=== PATIENT | male | born 1960 | race Caucasian/White ===

== ENCOUNTER 2022-09-15 06:01 | Day surgery (SDC) | payer OTHER, SELFPAY ==
[2022-09-07 14:43] VITALS: BMI 26.6
--- NOTE | 2022-09-14 15:16 | P.PNAN_ITS ---
Anes - Initial Pre Proc Eval Procedure: Operation Date: 09/15/22 07:30 Proposed Procedures p Blepharoplasty-Bilateral Lower Eyelid - Fabian Santacruz MD Date/Time: 09/14/22 15:16 Surgeon: Fabian Santacruz MD Pre Op Diagnosis: Dermatochalasis Patient Data Age: 62 Gender: M Height: 1.75 m Weight: 81.65 kg Allergies Allergy/AdvReac Type Severity Reaction Status Date / Time No Known Allergies Allergy Verified 09/07/22 14:39 Home Medications Medication Instructions Recorded Confirmed Type losartan 25 mg PO DAILY 03/28/22 09/15/22 History Patient hx anesthesia problems: none Family hx anesthesia problems: none Results Review: All pre-operative results and documents have been reviewed as part of the pre- operative evaluation. [facility] Past Medical History Medical History (Updated 09/14/22 @ 15:17 by Bayron Mcdonald DO) Hypertension Social History Social History (Updated 03/28/22 @ 10:48 by Lashay Starks) Smoking status: Never smoker Second hand tobacco smoke exposure: No Alcohol intake: current Substance use: never Substance use type: does not use Living arrangements: with family Spiritual care concerns: No Anes - Eval Final PreProcedure Day of Procedure 09/14/22 15:16 Patient weight: overweight Heart: regular rate and rhythm Lungs: clear to auscultation Airway: Mallampati scale class II Neurological: alert and oriented Last oral intake: >/= 8 hours ASA classification: II Emergent: no Anesthetic plan: proceed Anesthesia type and monitoring: general ETT and standard monitoring Results Review: All pre-operative results and documents have been reviewed as part of the pre-o perative evaluation. Informed Consent: The patient's anesthetic plan and its attendant risks and benefits were discussed with the patient/family/POA. Questions were solicited and answers provided to the satisfaction of the patient/family/POA.
[2022-09-15] VITALS (9 sets, daily range): BP systolic 123–143; BP diastolic 84–93; PULSE 63–80; RESP 12–20; TEMP 36.3–36.4; O2SAT 93–100
[2022-09-15] MEDS: LACTATED RINGERS 1,000 ML 30 ML IV CONT (06:33)
--- NOTE | 2022-09-15 07:11 | WPDHPUPDATE1 ---
History and Physical Update Update Date/Time: 09/15/22 07:11 History and Physical has been reviewed, including an updated exam of the patient. There are NO changes in the patient's condition. Risks, benefits, and alternatives have been discussed and questions answered. Patient agrees to proceed with procedure.
--- NOTE | 2022-09-15 07:16 | W.PM.PROC2 ---
Procedure Note - Detailed Date of Procedure 09/15/22 Pre-op Diagnosis Dermatochalasis Post-op Diagnosis Same Procedure Performed Bilateral transconjunctival lower lid blepharoplasty Surgeon Fabian Santacruz MD Anesthesia General Description of Procedure Preoperatively risks, benefits, alternatives were discussed in extensive detail. I want them to be very realistic about the risks involved as well as expectations. Discussed what we can and cannot improved. Limitations of this procedure. Alternative procedure as well as adjuvant procedures. This was a lengthy open-ended conversation discussing realistic expectations of outcome. Answered all of their questions to their satisfaction. Consent obtained. Taken to the operating room placed supine on the operating room table. Anesthesia provided by anesthesiology. Prepped and draped in a standard sterile fashion. 1% lidocaine and 0.25% Marcaine with epinephrine was used anesthetize locally with low volume of local to protect from distortion of structures. Eyes were irrigated with BSS. Tetracaine eyedrops placed. Corneal protectors also placed. Needle-tip cautery was used to incise just inferior to the tarsus and a transconjunctival lower lid blepharoplasty technique. The conjunctiva was retracted with a 5-0 nylon. I elevated in a preseptal fashion down to the level of the rim. At this point I entered the nasal, middle, and lateral compartments and removed only what was clearly excess adiposity. I verified strict hemostasis throughout. I verified that the inferior oblique was protected during this procedure. With gentle pressure on the globe I verified the contour the lower lids. Both lids proceeded in the same manner. Retraction suture and corneal protectors were removed. Copious irrigated again with BSS solution. Patient was woken taken the PACU without difficulty. All instrument sponge counts were correct at the end the case. Estimated Blood Loss 5 Drains No Packing No Pathology None sent Complications No immediate complications Condition Stable Disposition PACU
[2022-09-15] MEDS: ceFAZolin SODIUM 2 GM/20 ML SW SYRINGE IV PUSH (07:26)
[2022-09-15] MEDS: LIDO 1%/EPINEPHRINE 1:100,000 20 ML VIAL INFILTRATE (07:59)
[2022-09-15] MEDS: BUPIVACAINE HCL 0.25% 50 ML VIAL 20 ML INFILTRATE (08:00)
[2022-09-15] MEDS: NEOMYCIN/POLYMYXIN/DEXAMETH OP OINT 3.5 GM TUBE 1 APPLIC AFFCTD EYE (08:31)
[2022-09-15] MEDS: fentaNYL CITRATE INJ (*CRX) 100 MCG/2 ML VIAL 25 MCG IV PUSH ×2 (08:59→09:06)
[2022-09-15] MEDS: oxyCODONE HCL (*CRX) 2.5 MG TAB IR PO (09:45)
--- NOTE | 2022-09-15 10:37 | WPDANESPN ---
Anes - Prog Note Post-Op Date/Time: 09/15/22 10:37 Cardiovascular status: normal Respiratory status: normal Airway patency: baseline Mental status: baseline Post-Op hydration status: normal Vital Signs: Last Vital Signs Temp 36.3 C L 09/15/22 08:43 Pulse 63 09/15/22 10:20 Resp 14 09/15/22 10:20 BP 126/86 09/15/22 10:20 Pulse Ox 94 09/15/22 10:20 O2 Del Method Room Air 09/15/22 10:20 O2 Flow Rate 5 09/15/22 08:58 Pain Score (VAS): 1 I/O: Intake & Output 09/14/22 09/15/22 09/15/22 23:59 07:59 15:59 Intake Total 100 Balance 100 Post-procedural complaints: none Patient Feedback: Patient satisfied with anesthetic care. Other Findings: Patient vital signs back to baseline. Patient denies nausea and vomiting. Patient's pain under control. Patient OK for discharge.
== END 2022-09-15 10:23 | disposition home or self-care (01) ==
PROVIDERS: PCP Internal Medicine; Visit Provider Surgery Plastic and Reconstructive Surgery
PROC: (CPT 15821; principal; 2022-09-15 07:30)
DX: Z41.1 Encounter for cosmetic surgery (principal)
CPT/HCPCS: 15821

== ENCOUNTER 2024-01-29 12:53 | Outpatient (CLI) | payer OTHER, SELFPAY ==
--- NOTE | 2024-01-29 13:09 | ECG_ITS ---
SEE SCANNED COPY FOR CONFIRMED REPORT MTDD
[2024-01-29 13:52] LABS: Anion Gap 4 mmol/L (4-12); Blood Urea Nitrogen 15 mg/dL (9-20); Calcium 9.4 mg/dL (8.4-10.2); Carbon Dioxide 30 mmol/L (22-30); Chloride 103 mmol/L (98-107); Estimated Glomerular Filt Rate > 60; Glucose 105 mg/dL (65-110); Potassium 3.3 mmol/L (3.4-5.0); Sodium 137 mmol/L (137-145)
== END 2024-01-29 12:54 | disposition home or self-care (01) ==
LOC: ANHSURGERY 13:03
PROVIDERS: Anesthesiology; PCP Internal Medicine; Visit Provider Surgery
DX: Z01.818 Encounter for other preprocedural examination (principal); K42.9 Umbilical hernia without obstruction or gangrene; I10 Essential (primary) hypertension; Z79.899 Other long term (current) drug therapy
CPT/HCPCS: 36415; 80048; 86850; 86900; 86901; 93005

== ENCOUNTER 2024-01-30 00:51 | Day surgery (SDC) | payer OTHER, SELFPAY ==
[2024-01-25 10:07] VITALS: BMI 25.0
--- NOTE | 2024-01-25 10:11 | PC.NURSE ---
Report to the Outpatient Waiting Room, entrance under the green pavilion located off [facility], at time 8:00 on date 01/30/24. Planned Procedure Time: 10:00. Time changes happen often and if your time is changed the preop area will call you the afternoon before. - You and your visitor will be asked to self-screen and do not enter if you have any COVID symptoms. - A mask is optional within the hospital at this time. Patients may have clear liquids (water, carbonated beverages, clear teas, apple juice) until 3 hours prior to surgery (7:00) with a maximum of 20 ounces. - No food from midnight until time of surgery Take the following medications with a SIP of water the morning of surgery: NONE DO NOT STOP ANY OF YOUR OTHER PRESCRIPTION MEDICATIONS PRIOR TO SURGERY ?EXCEPT THE FOLLOWING Medications to discontinue per physician: N/A Date to take last dose: N/A Please no make-up, nail pitcairn islander, hairspray, perfume, deodorant, or body powder the day of surgery. No jewelry (including any body piercings) or valuables the day of surgery, leave them at home. Please take a shower or bath the night before, or the morning of, surgery with an antibacterial soap. Wear comfortable, loose fitting clothing. Children are encouraged to wear pajamas. - Jewelry must be removed prior to entering the operating room. Rings and piercings that are not removed may be cut off. - The hospital will not accept responsibility for valuables. - Please leave all valuables, including medications, at home the day of surgery. If you are going home after surgery, a licensed port cdl a driver must drive you home. - NO public transportation without another adult if you receive anesthesia. - We recommend that an adult stay with you for 24 hours following discharge. - We also recommend that you do not drive, make important decision, drink alcoholic beverages, or take any drugs that were not prescribed by your health care provider for at least 24 hours after your discharge time. Follow any additional instructions given to you from your surgeon. If you or anyone in your household have experienced Covid symptoms in the past week, please notify your surgeon or the nurse liaison at the phone number below for possible testing. Telephone instructions given to PT - BETINA and asked if any additional questions and then verbalized understanding. Patient advised to call surgeon office or pre surgery nurse liaison [phone] if any additional questions.
--- NOTE | 2024-01-28 13:38 | PM.SD2 ---
Same Day Admit/Disch: HPI History of Present Illness Chief complaint: Umbilical hernia Narrative: Houston Wahl is a 63 year old male who last fall was working out and noticed pain in the area of his umbilicus. He subsequently noted a bulge at the upper aspect of the umbilicus. This has been recurrently painful and uncomfortable. He was seen in the office and an umbilical hernia was diagnosed. It has a 1 cm defect. He is taken to surgery now for robotic laparoscopic repair with mesh. [facility] Past Medical History Medical History Basal cell carcinoma (BCC) Hypertension Surgical History Surgical History H/O eye surgery Family History Family History Father Hypertension Heart disease Social History Social History Smoking status: Never smoker Second hand tobacco smoke exposure: No Alcohol intake: current Drinks per week: 30 Alcohol use details: BEER Substance use: never Substance use type: does not use Lack of Transportation: No Lack of Food: Never True Current Housing: I Have Housing Concerned About Future Housing: No Difficulty Paying Gas/Electric Bills: No Difficulty Paying for Meds: No Currently Unemployed: No Education: High School Diploma/GED Difficulty w/ Childcare or Family Care: No Living arrangements: with family Spiritual care concerns: No Same Day Admit/Disch: Med Pre-admit Medications Home Medications Medication Instructions Recorded Confirmed Type losartan 100 1 tablet PO DAILY 03/22/23 01/30/24 History mg-hydrochlorothiazide 25 mg tablet ketorolac 10 mg tablet 10 mg PO Q6H 4 days #16 tabs 01/30/24 Rx oxycodone-acetaminophen 5 mg-325 0.5 - 1 tablet PO Q6H PRN pain #10 01/30/24 Rx mg tablet tabs Review of Systems Review of Systems All systems reviewed & are unremarkable except as noted in HPI and below (HPI) Exam Const: General: comfortable, no acute distress, alert and awake HENMT: Head: normocephalic and atraumatic Mouth: Yes Normal oral and palatal mucosa present Eyes: Conjunctivae: conjunctivae normal Pupils: Equal, round and reactive pupils present EOM: EOMs intact bilaterally Neck: Neck: normal visual inspection, no lymphadenopathy and nontender Resp: Effort & Inspection: normal respiratory effort Auscultation: clear to auscultation bilaterally Cardio: Rate: regular rate Rhythm: regular rhythm Heart sounds: no gallops, no murmurs and no rubs GI: Inspection: non-distended and visible herniation (Umbilical) GI Palp: Yes Soft to palpation, No Tenderness to palpation present (GI), No Hepatomegaly present, No Splenomegaly present and Yes Hernia present umbilical (Reducible but tender umbilical hernia, 1 cm defect.) < 3 cm Skin: Lesions: no lesions Rashes: no rashes Neuro: General: no focal motor deficits and CN's II-XI intact bilaterally Cranial nerves: Yes Equal, round and reactive pupils present, Yes Bilaterally intact EOM present, Yes facial symmetry and Yes Midline tongue present Speech: normal speech Motor exam (neuro): 5/5 motor strength present throughout and Motor abnormalities not present Extrem: General: no clubbing, cyanosis or edema and edema Psych: Affect: normal affect Thought process: Normal thought process present Insight: Good insight present (Psych) DS: Summary Time Spent with Patient Time attestation: Total time spent providing and/or coordinating discharge services: DS: Admitting Diagnosis Discharge Date 01/30/2024 Admitting Diagnosis Symptomatic, reducible umbilical hernia with 1 cm defect-plan to proceed with robotic laparoscopic repair with mesh. The procedure, alternatives, risks, benefits have all been discussed. The usual length of surgery and length of recovery has been discuss
[2024-01-30] VITALS (7 sets, daily range): BP systolic 125–154; BP diastolic 78–88; PULSE 60–88; RESP 12–24; TEMP 36.3–36.4; O2SAT 92–100
[2024-01-30] MEDS: LACTATED RINGERS 1,000 ML 30 ML IV CONT ×2 (08:40→11:44)
[2024-01-30] MEDS: ACETAMINOPHEN 500 MG TABLET 1000 MG PO (08:43)
[2024-01-30] MEDS: KETOROLAC 15 MG/ML VIAL (*BKC) IV PUSH (08:44)
--- NOTE | 2024-01-30 09:02 | WPDHPUPDATE1 ---
History and Physical Update Update Date/Time: 01/30/24 09:02 History and Physical has been reviewed, including an updated exam of the patient. There are NO changes in the patient's condition. Risks, benefits, and alternatives have been discussed and questions answered. Patient agrees to proceed with procedure.
--- NOTE | 2024-01-30 09:31 | WPDANESEPPF ---
Anes - Initial Pre Proc Eval Procedure: Operation Date: 01/30/24 10:00 Proposed Procedures p Robotic Repair Umbilical Hernia with Mesh - Dalton Cabello MD Date/Time: 01/30/24 09:31 Surgeon: Dalton Cabello MD Pre Op Diagnosis: Umbilical hernia Patient Data Age: 63 Gender: M Height: 1.78 m Weight: 79.8 kg Last Vital Signs Temp 97.3 F L 01/30/24 07:54 Pulse 60 01/30/24 07:54 Resp 16 01/30/24 07:54 BP 133/87 01/30/24 07:54 Pulse Ox 100 01/30/24 07:54 O2 Del Method Room Air 01/30/24 07:54 Allergies Allergy/AdvReac Type Severity Reaction Status Date / Time No Known Allergies Allergy Verified 01/30/24 08:09 Home Medications Medication Instructions Recorded Confirmed Type losartan 100 1 tablet PO DAILY 03/22/23 01/30/24 History mg-hydrochlorothiazide 25 mg tablet Patient hx anesthesia problems: none Family hx anesthesia problems: none Results Review: All pre-operative results and documents have been reviewed as part of the pre-operative evaluation. COUNTS INCLUDE 234 BEDS AT THE [facility] Past Medical History Medical History Basal cell carcinoma (BCC) Hypertension Surgical History Surgical History H/O eye surgery Family History Family History Father Hypertension Heart disease Social History Social History Smoking status: Never smoker Second hand tobacco smoke exposure: No Alcohol intake: current Drinks per week: 30 Alcohol use details: BEER Substance use: never Substance use type: does not use Lack of Transportation: No Lack of Food: Never True Current Housing: I Have Housing Concerned About Future Housing: No Difficulty Paying Gas/Electric Bills: No Difficulty Paying for Meds: No Currently Unemployed: No Education: High School Diploma/GED Difficulty w/ Childcare or Family Care: No Living arrangements: with family Spiritual care concerns: No Anes - Eval Final PreProcedure Day of Procedure 01/30/24 09:31 Patient weight: normal Heart: regular rate and rhythm Lungs: clear to auscultation Airway: Mallampati scale class II Neurological: alert and oriented Last oral intake: >/= 8 hours ASA classification: II Emergent: no Anesthetic plan: proceed Anesthesia type and monitoring: general ETT and standard monitoring Results Review: All pre-operative results and documents have been reviewed as part of the pre-operative evaluation. Informed Consent: The patient's anesthetic plan and its attendant risks and benefits were discussed with the patient/family/POA. Questions were solicited and answers provided to the satisfaction of the patient/family/POA.
[2024-01-30] MEDS: ceFAZolin 2 GM/D5W 50 ML 2 GM/50 ML BAG IVPB (09:47)
[2024-01-30] MEDS: BUPIVACAINE/EPINEPHRINE 0.5% 50 ML VIAL 20 ML INFILTRATE (10:19)
--- NOTE | 2024-01-30 11:49 | W.PM.PROC2 ---
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 This is occasionally painful especially when bending over or straining. He was seen in the office and found to have an umbilical hernia with a 1 cm defect. He is taken to surgery now for robotic laparoscopic repair of umbilical hernia with mesh. Findings After removing midline properitoneal fat and reducing the hernia, there were additional small holes in the midline fascia that were more cephalad than the main hernia defect. Placing a grasper from the main umbilical defect and positioning it cephalad, the hernia defect was actually much larger than appreciated by palpation. I removed the tenuous bridging tissue and this was actually a 5 cm defect. It was oriented in longitudinal fashion and 10 x 15 cm mesh was able to be used. Description of Procedure Patient was taken to surgery and induced into general anesthesia. The abdomen is prepped and draped. The left flank of the patient had been slightly elevated and prepped in the field. Three robotic trocars were placed in the left flank in the usual fashion, 1st using a 5 mm applied Medical port and camera. Once the robotic ports were in place, we brought the robotic arms into position and docked the camera. Camera was then targeted. The 2 other ports to be used were then docked and the instruments placed. Instruments were positioned appropriately. The surgeon then went to the robotic console. Dissection was carried out freeing the left side of the preperitoneal fat from the anterior abdominal wall. This was done caudally be below the hernia defect and then continued to the hernia defect. I then reduced the herniated properitoneal fat and continued this process farther cephalad. About 3 cm above the main hernia defect, 2 small 0.5 cm defects were noted. I continued dissecting the properitoneal fat away from the area where the hernia mesh would be placed. This was continued caudally after I divided this area of fat from the more cephalad dissection. More cephalad dissection was carried out and the lower most portion of the falciform ligament was dissected off the anterior abdominal wall as well. I went back to the main hernia defect and the 2 small defects cephalad to this. Placing my grasper in the umbilical defect and passing it anteriorly, it was evident that this was not fascia between the defects. The bridging tissue was very tenuous. I divided it and removed it including some properitoneal fat superficial to this. Once this was removed, we had a 5 cm ventral defect at and above the umbilicus. 0 Stratafix suture was then used. Starting at the cephalad portion of the defect, I closed the defect with running suture. I doubled the Stratafix back to secure it. We then introduced a 15 x [address] hernia mesh. I passed the Stratafix needle through the center of the hernia mesh. I then moved the mesh up the suture and flush with the center of the repair. I then used the needle to secure the left side of the mesh to the anterior abdominal wall. Two 2-0 V lock suture were then passed into the field. I started at right middle of the mesh. I then sutured in running fashion the 2 0 V lock around the entire circumference of the mesh. I started on the right middle of the mesh and proceeded caudally. Each suture was 9 in long and I required 4 such sutures to complete the securing circumferential stitch to affix the mesh to the anterior abdominal wall. With some leftover suture, I then sutured across the center of the mesh to ensure it attached well to the area of the hernia repa
[2024-01-30] MEDS: oxyCODONE HCL (*CRX) 5 MG TAB IR PO (12:41)
== END 2024-01-30 13:25 | disposition home or self-care (01) ==
PROVIDERS: PCP Internal Medicine; Visit Provider Surgery
PROC: (CPT 49593; principal; 2024-01-30 10:00)
DX: K42.9 Umbilical hernia without obstruction or gangrene (principal); I10 Essential (primary) hypertension
CPT/HCPCS: 49593; S2900; 36415; 80048; 86850; 86900; 86901; 93005; A9270; C1781; J0690; J1100; J1170; J1885; J2250; J2405; J2704; J3010; J7120

== ENCOUNTER 2024-03-10 17:13 | Inpatient (IN) | payer OTHER, SELFPAY ==
[2024-03-10] VITALS (24 sets, daily range): BP systolic 82–145; BP diastolic 68–114; PULSE 74–160; RESP 12–21; TEMP 36.1–36.7; O2SAT 90–100; BMI 26.6
--- NOTE | ~2024-03-10 | US_ITS ---
US abdomen limited INDICATION: Elevated liver enzymes PROCEDURE: Realtime right upper abdominal ultrasound. COMPARISON: No prior studies for comparison. FINDINGS: The pancreas is normal without focal mass or pancreatic ductal dilation. Liver echotexture is normal without focal mass or intrahepatic biliary dilatation. There is normal directional flow i n the portal vein. The gallbladder is normal without stones, gallbladder wall thickening or pericholecystic fluid. Comm on bile duct measures 4 mm. No sonographic Ortiz's sign. IMPRESSION: 1: Normal limited abdominal ultrasound. Reviewed, dictated and finalized at location B.
--- NOTE | ~2024-03-10 | CT_ITS ---
EXAMINATION: CTA chest DATE: 03/10/2024 18:16 INDICATION: cardiac arrest TECHNIQUE: Computed tomography (CT) of the chest was performed with 100 mL Omnipaque-350 intravenous contrast in the arterial phase. Automated exposure control and iterative reconstruction technique wer e employed. The dose-length product was 713.18 mGy-cm. COMPARISON: None. FINDINGS: CHEST: Thoracic aorta: No significant dilation or calcification. Lung parenchyma and airways: Endotracheal endotracheal tube, terminating 1 cm above the ginger. Linea r, reticular, groundglass dependent opacities. Patent airways. Thoracic inlet, axillae and chest wall: No thyroid or soft tissue mass. No axillary lymphadenopathy. Mediastinum: No mass or lymphadenopathy. Heart and pericardium: Normal heart size. No pericardial effusion. Coronary artery calcifications: Mild. Pleura: No effusion or mass. Upper abdomen: Moderate left periureteral stranding. Thoracic bones: Multiple nondisplaced bilateral anterior rib fractures. IMPRESSION: No aortic dissection or aneurysm. The endotracheal tube is definitively within the trachea, but terminates 1 cm above the ginger. Consi jose 3 cm retraction Dependent atelectasis and/or edema. Aspiration could also be considered given the distribution. Moderate left periureteral stranding, correlate with urinalysis. Multiple nondisplaced bilateral anterior rib fractures. Reviewed, dictated and finalized at location K. IMPRESSION: No aortic dissection or aneurysm. The endotracheal tube is definitively within the trachea, but terminates 1 cm a vita the ginger. Consider 3 cm retraction Dependent atelectasis and/or edema. Aspiration could also be considered given t he distribution. Moderate left periureteral stranding, correlate with urinalysis. Multiple nondisplaced bilateral anterior rib fractures.
--- NOTE | ~2024-03-10 | XR_ITS ---
EXAM: XR abdomen gastric tube rechec DATE: 03/10/2024 22:45 HISTORY: recheck NG placement . COMPARISON: Same date at 6:51 PM. FINDINGS/IMPRESSION: NG tube remains in good position. New subsegmental medial left basilar atelectas is/consolidation. Interval resolution of the mildly dilated small bowel loops. Reviewed, dictated and finalized at location K.
--- NOTE | ~2024-03-10 | XR_ITS ---
EXAMINATION: XR chest 1V portable Exam Date/Time: 03/10/2024 17:25 CDT HISTORY: cardiac arrest Comparison: None. RESULT: Lines, tubes, and devices: Endotracheal tube terminating at the ginger, the endotracheal balloon killian ears to project outside the borders of the trachea. Lungs and pleura: Low lung volumes. Mild diffuse reticular opacities. Cardiomediastinal silhouette: The upper mediastinum is widened. Other: Markedly dilated gas-filled stomach. No acute osseous finding. IMPRESSION: Possible esophageal intubation. Upper mediastinal widening, consider CT of the chest for further evaluation. Pulmonary opacities may represent mild interstitial edema versus bronchovascular crowding from low vo lumes. Marked gastric distention. Results reported telephonically to Dr. Sewell by Dr. Kaba at 5:40 PM on 03/10/2024. Reviewed, dictated and finalized at location K. IMPRESSION: Possible esophageal intubation. Upper mediastinal widening, consider CT of the chest for further evaluation. Pulmonary opacities may represent mild interstitial edema versus bronchovascula r crowding from low volumes. Marked gastric distention. Results reported telephonically to Dr. Sewell by Dr. Kaba at 5:40 PM on 024.
--- NOTE | ~2024-03-10 | XR_ITS ---
Portable chest x-ray Comparison: 03/10/2024 Clinical History: Respiratory failure Findings: Probable discoid atelectasis right lung base versus other focal airspace opacity. Minimal left pleural effusion. Cardiomediastinal silhouette is stable. Bones and soft tissues are unremarkab le. Impression: Minimal left pleural effusion. Probable discoid right basilar atelectasis. Correlate for any possibility of focal pneumonia. Reviewed, dictated and finalized at location . Impression: Minimal left pleural effusion. Probable discoid right basilar atelectasis. Correlate for any possibility of fo raji pneumonia.
--- NOTE | ~2024-03-10 | XR_ITS ---
EXAM: XR abdomen gastric tube insert DATE: 03/10/2024 18:55 HISTORY: NG tube placement . COMPARISON: X-ray chest 03/10/2024. FINDINGS: NG tube, tip and side port project over the stomach. Interval resolution of gastric disten tion. Several loops of mildly dilated small bowel in the mid abdomen. Degenerative changes in the lum bar spine. IMPRESSION: NG tube, in good position. Mildly dilated small bowel loops, may represent ileus. Early/p artial obstruction not excluded. Reviewed, dictated and finalized at location K. IMPRESSION: NG tube, in good position. Mildly dilated small bowel loops, may re present ileus. Early/partial obstruction not excluded.
--- NOTE | ~2024-03-10 | CT_ITS ---
EXAMINATION: CT cervical spine wo con DATE: 03/10/2024 18:17 INDICATION: fall TECHNIQUE: Computed tomography (CT) of the cervical spine was performed without intravenous contrast. Automated exposure control and iterative reconstruction technique were employed. The dose-length pro duct was 483.38 mGy-cm. COMPARISON: None. FINDINGS: Vertebral Body Alignment: Intact. Craniocervical and atlantoaxial alignment: Moderate degenerative change. Alignment intact. Osseous structures/fracture: No evidence of a lytic or blastic process in the visualized spine. No e vidence of acute fracture. Cervical soft tissues: The paraspinal soft tissues planes are maintained. Linear and groundglass prim arily dependent opacities in the lungs. Partially visualized endotracheal tube. Degenerative changes: Degenerative changes, without severe neural foraminal or central canal narrowin g. IMPRESSION: No acute fracture or traumatic malalignment in the cervical spine. Reviewed, dictated and finalized at location K.
--- NOTE | ~2024-03-10 | XR_ITS ---
Portable chest x-ray Comparison: 03/13/2024 Clinical History: Respiratory failure Findings: Probable discoid atelectasis right lung base. Left lung clear. Cardiomediastinal silhouet te is stable. Bones and soft tissues are unremarkable. Impression: Probable discoid right basilar atelectasis. Reviewed, dictated and finalized at location . Impression: Probable discoid right basilar atelectasis.
--- NOTE | ~2024-03-10 | CT_ITS ---
EXAMINATION: CT brain wo con DATE: 03/10/2024 18:15 INDICATION: full arrest . TECHNIQUE: Computed tomography (CT) of the head was performed without intravenous contrast. The mA wa s adjusted according to patient size. Iterative reconstruction technique was employed. The dose-lengt h product was 1362.00 mGy-cm. COMPARISON: None. FINDINGS: Significant motion artifact which persisted after repeated imaging attempts. No acute intracranial hemorrhage or extra-axial fluid collection. No hydrocephalus, mass, or herniation. No acute ischemic infarct. Unremarkable dural venous sinus attenuation. No acute osseous abnormality. The aerated spaces are clear. Bilateral basal ganglia calcification. Mild intracranial arterial calcification. IMPRESSION: Motion limited examination. No definite acute intracranial process detected. Reviewed, dictated and finalized at location K.
--- NOTE | ~2024-03-10 | XR_ITS ---
Portable chest x-ray Comparison: 03/12/2024 Clinical History: Respiratory failure Findings: Questional focal retrocardiac airspace disease. Right lung clear. Cardiomediastinal silho uette is stable. Bones and soft tissues are unremarkable. Impression: Possible focal left lower lobe atelectasis or pneumonia. Correlate clinically. Reviewed, dictated and finalized at [facility]. Impression: Possible focal left lower lobe atelectasis or pneumonia. Correlate clinically.
--- NOTE | 2024-03-10 17:18 | ECG_ITS ---
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 Measurements Intervals [place] Rate: 142 P: 0 AR: 0 QRS: 47 QRSD: 106 T: -39 QT: 256 QTc: 395 Interpretive Statements ATRIAL FIBRILLATION WITH RAPID VENTRICULAR RESPONSE MODERATE VOLTAGE CRITERIA FOR LVH, CONSIDER NORMAL VARIANT [MEETS CRITERIA IN ONE OF: R(aVL), S(V1), R(V5), R(V5/V6)+S(V1)] MARKED ST DEPRESSION, CONSIDER SUBENDOCARDIAL INJURY [0.2+ mV ST DEPRESSION] Compared to ECG 03/10/2024 17:16:54 No significant changes Electronically Signed On 03-11-2024 14:16:30 CDT by Blair Bland M.D.
[2024-03-10] MEDS: PROPOFOL IV EMULSION 200 MG/20 ML VIAL 50 MG IV PUSH (17:21)
[2024-03-10] MEDS: PROPOFOL IV EMULSION 100 ML 2.67 MG IV CONT (17:25)
--- NOTE | 2024-03-10 17:32 | ED.CPR ---
HPI - CPR General Chief Complaint: Cardiac Arrest/CPR Stated Complaint: rosc Time Seen by Provider: 03/10/24 17:18 History of Present Illness HPI narrative: Pt told his son he had sudden onset of back pain between his shoulder blades. His son messaged it for awhile. Family out of room and heard pt fall and found him unresponsive on floor. Pt was bleeding from head. CPR started immediately per family and PD arrived in less than 3 minutes and identified shockable rhythm. Pt shocked with AED x 1 and got pulse and BP. EMS arrived and intubated pt to protect airway. good sats and end todal per EMS. Pt arrives bucking tube and moving all extremities but not responding to commands. Related Data Home Medications Medication Instructions Recorded Confirmed losartan 100 1 tablet PO DAILY 03/22/23 02/15/24 mg-hydrochlorothiazide 25 mg tablet Allergies Allergy/AdvReac Type Severity Reaction Status Date / Time No Known Allergies Allergy Verified 02/14/24 09:21 Review of Systems Review of Systems: ROS unobtainable: Yes unobtainable due to endotracheal tube and unobtainable due to medical condition [facility] Past Medical History Medical History (Updated 03/10/24 @ 20:18 by Tuyet Sewell III, DO) Basal cell carcinoma (BCC) Hypertension Surgical History Surgical History (Updated 02/14/24 @ 09:43 by Kayley Cheney CMA) H/O eye surgery Hx of umbilical hernia repair Robotic laparoscopic repair 5 cm umbilical hernia with mesh 01/30/24 Family History Family History Father Hypertension Heart disease Social History Social History Smoking status: Never smoker Second hand tobacco smoke exposure: No Alcohol intake: current Drinks per week: 30 Alcohol use details: BEER Substance use: never Substance use type: does not use Lack of Transportation: No Lack of Food: Never True Current Housing: I Have Housing Concerned About Future Housing: No Difficulty Paying Gas/Electric Bills: No Difficulty Paying for Meds: No Currently Unemployed: No Education: High School Diploma/GED Difficulty w/ Childcare or Family Care: No Living arrangements: with family Spiritual care concerns: No Exam Const: Nutritional Appearance: well nourished Limitations: other limitations (intubated) HENMT: Other: blood from posterior scalp and right ear Chest: Chest palpation & inspection: normal inspection of the chest Resp: Auscultation: clear to auscultation bilaterally (bagged resp) Cardio: Rate: tachycardic Rhythm: abnormal rhythm GI: Auscultation: normal bowel sounds Skin: General skin exam: normal color Neuro: Other: unresponsive to verbal commands but got etomodate in route Extrem: General: normal to inspection and no clubbing, cyanosis or edema Course Course Emergency Course: cxr revealed gas in stomach and possible esophageal intubation, pt in CT scanner, sats starting to drop and bagging more difficult so likely that is esophageal, tube removed. gastric contents now in tube. Pt suctioned before and after removal no significant gastric contents noted, Pt given etomidate 20 mg and sux 1oo mg per RSI and intubated with 7.0 ETT, positive color change sat 98%. CT scans resumed. discussed with Dr Lai said start amiodarone bolus and drip for rate control. discussed with Dr Barahona sent him EKG's. said wait until HR slows and repeat EKG. Repeat EKG shows some subltle st elevation in avl I and v6, st depression has improved. 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 Pt propofol drip stopped, pt thrashing around asked pt to look at me, to squeeze fingers, to move any extremity on command and patient had no purposeful movements, so hypothermia will be initiated. discussed with dr Lai and he accepts pt to IC
[2024-03-10] MEDS: MIDAZOLAM HCL (*CRX) 2 MG/2 ML VIAL 3 MG IV PUSH (18:21)
--- NOTE | 2024-03-10 18:28 | PC.NURSE ---
1750 Dr. Sewell at bedside in [place], reported pt difficulty bagging, pt increase restlessness. 175- Etomidate 20mg IVP to right hand IV, 1753 Succinylcholine 100mg IVP pt suctioned by Dr. Sewell, hyperventilated by RT & reintubated without difficulty with glide a scope #[id number] at teeth.
--- NOTE | 2024-03-10 18:31 | ECG_ITS ---
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 Measurements Intervals [place] Rate: 143 P: 0 MI: 0 QRS: 49 QRSD: 106 T: 22 QT: 317 QTc: 489 Interpretive Statements ATRIAL FIBRILLATION WITH RAPID VENTRICULAR RESPONSE VOLTAGE CRITERIA FOR LVH [MEETS CRITERIA IN ONE OF: R(aVL), S(V1), R(V5), R(V5/V6)+S(V1)] MARKED ST DEPRESSION, CONSIDER SUBENDOCARDIAL INJURY [0.2+ mV ST DEPRESSION] No previous ECG available for comparison Electronically Signed On 03-11-2024 14:15:34 CDT by Blair Bland M.D.
--- NOTE | 2024-03-10 18:33 | PC.NURSE ---
181 CT unable to perform scan due to pt agitation. Diprivan 50mg IVP per Dr. Sewell bolus.
--- NOTE | 2024-03-10 18:34 | PC.NURSE ---
Dr. Sewell informed of agitation Versed IVP given per orders from RSI kit
--- NOTE | 2024-03-10 18:46 | PC.NURSE ---
Diprivan stopped per Dr for trial of purposeful movement, movement on command. Pt not responding to instructions or displaying purposeful movement. diprivan 30mg bolus given & Diprivan infusion started.
--- NOTE | 2024-03-10 18:49 | PC.NURSE ---
1827 - RT pulled ET back to [address] Sewell instructions
[2024-03-10] MEDS: AMIODARONE 150 MG/D5W 100 ML 150 MG/100 ML BAG 600 MG IV CONT (18:53)
[2024-03-10 19:03] LABS: Basophils Absolute Auto 0.1 K/mm3 (0.0-0.1); Basophils Percent Auto 0.6 % (0.2-1.2); Eosinophils Absolute Auto 0.2 K/mm3 (0-0.3); Eosinophils Percent Auto 1.5 % (0-4.4); Hematocrit 42.8 % (42.0-52.0); Hemoglobin 14.4 g/dL (14.0-18.0); Immature Granulocyte Percent A 0.7 % (0-0.5); Lymphocytes Absolute Auto 3.56 K/mm3 (0.9-3.2); Lymphocytes Percent Auto 25.6 % (18.3-44.2); Mean Corpuscular HGB Conc 33.6 g/dl (32-36); Mean Corpuscular Hemoglobin 31.5 pg (26-34); Mean Corpuscular Volume 93.7 fl (80-100); Mean Platelet Volume 11.7 fl (7.4-10.4); Monocytes Percent Auto 6.8 % (2.6-8.5); Neutrophils Percent Auto 64.8 % (45.5-73.1); Platelet Count Result 274 k/mm3 (150-375); Red Blood Count 4.57 M/mm3 (4.6-6.20); Red Cell Distribution Width 13.5 % (11.5-14.5); White Blood Count 13.9 K/mm3 (4.5-10.0)
[2024-03-10 19:04] LABS: Alanine Aminotransferase 133 U/L (6-50); Albumin Level 4.3 g/dL (3.5-5.1); Alkaline Phosphatase 76 U/L (38-126); Anion Gap 16 mmol/L (4-12); Aspartate Amino Transferase 161 U/L (17-59); Bilirubin,Total 1.4 mg/dL (0.2-1.3); Blood Urea Nitrogen 14 mg/dL (9-20); Calcium 8.9 mg/dL (8.4-10.2); Carbon Dioxide 15 mmol/L (22-30); Chloride 109 mmol/L (98-107); Cholesterol 189 mg/dL (0-200); Estimated Glomerular Filt Rate > 60; Glucose 214 mg/dL (65-110); HDL Direct 58 mg/dL; Potassium 2.7 mmol/L (3.4-5.0); Prothrombin Time 14.1 Seconds (11.1-14.7); Sodium 140 mmol/L (137-145); Triglycerides 155 mg/dL (<150)
[2024-03-10 19:05] LABS: Partial Thromboplastin Time 23.3 Seconds (22.3-36.8)
--- NOTE | 2024-03-10 19:06 | PCRCNOTE ---
PT. WAS REINTUBATED BY DR. MOORE IN CT AT 1755 WITH A 7.0 ET TUBE AT 26CM AT THE LIP TO THE RIGHT SIDE OF THE MOUTH. CO2 DETECTOR WAS USED TO VERIFY PLACEMENT.
[2024-03-10 19:09] LABS: LDL Cholesterol Direct 112 mg/dL; Troponin I 0.034 ng/mL (0.000-0.034)
[2024-03-10] MEDS: AMIODARONE 360 MG/D5W 200 ML 360 MG/200 ML BAG 33.33 MG IV CONT (19:09)
[2024-03-10] MEDS: fentaNYL CITRATE INJ (*CRX) 100 MCG/2 ML VIAL 50 MCG IV PUSH (19:15)
[2024-03-10] MEDS: MIDAZOLAM HCL (*CRX) 2 MG/2 ML VIAL 4 MG IV PUSH ×2 (19:15→20:08)
--- NOTE | 2024-03-10 19:18 | ECG_ITS ---
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 Measurements Intervals [place] Rate: 104 P: 0 LA: 0 QRS: 56 QRSD: 104 T: 47 QT: 365 QTc: 481 Interpretive Statements ATRIAL FIBRILLATION WITH RAPID VENTRICULAR RESPONSE VOLTAGE CRITERIA FOR LVH [MEETS CRITERIA IN ONE OF: R(aVL), S(V1), R(V5), R(V5/V6)+S(V1)] ST DEPRESSION, CONSIDER SUBENDOCARDIAL INJURY [0.1+ mV ST DEPRESSION] Compared to ECG 03/10/2024 18:34:58 No significant changes Electronically Signed On 03-11-2024 14:16:40 CDT by Blair Bland M.D.
[2024-03-10] MEDS: FENTANYL 2,500MCG/NS250ML(*CRX 2,500 MCG/250 ML BAG IV CONT (19:30)
--- NOTE | 2024-03-10 19:30 | PC.NURSE ---
Pt report given. Vent settings per Resp therapy documentation and unchanged. Ng & ET tube intact. Mao draining clear yellow urine. Pt remains to display no-purposeful movements, Ice packs to bilateral groin, bilateral axilla to reach hypothermia. Cervical collar removed from pt by Dr. Sewell, wound to posterior scalp & left ear Dr. Sewell aware.
[2024-03-10] MEDS: MIDAZOLAM 100MG/NS 100ML(*CRX) 100 MG/100 ML BAG IV CONT (19:50)
[2024-03-10] MEDS: POTASSIUM CHLORIDE INJ 40 MEQ in SODIUM CHLORIDE 0.9% IV 500 ML 130 MEQ IVPB (20:00)
[2024-03-10 20:27] LABS: Magnesium 1.8 mg/dL (1.6-2.3)
[2024-03-10] MEDS: MIDAZOLAM HCL (*CRX) 2 MG/2 ML VIAL IV PUSH (20:28)
--- NOTE | 2024-03-10 20:48 | PM.IMHP ---
H&P: HPI History of Present Illness Date/Time: 03/10/24 20:48 Chief Complaint: out of hospital cardiac arrest Narrative: this is a 63-year-old man who is unknown to me prior to this evening. He apparently does not have a prior history of heart disease and had a cardiac arrest outside of the hospital in his home. In the field he was defibrillated by an AED device. He was brought to the emergency room here where he was intubated and found to be in AFib with RVR. He was placed on some amiodarone which controlled his heart rate. With a better heart rate it is evident on his ECG that there is mild ST elevation in leads 1 and aVL with depression in the inferior leads. His electrocardiogram any when he was here in January of this year for noncardiac surgery was normal. According to the history he had significant back pain prior to arresting. A CT of the aorta in the emergency room showed no evidence of dissection. In this setting he is being brought for emergency coronary angiography for suspected ACS/mi Review of Systems Review of Systems: ROS unobtainable: Yes unobtainable due to endotracheal tube and unobtainable due to mental status [facility] Past Medical History Medical History (Updated 03/10/24 @ 20:18 by Tuyet Sewell III, DO) Basal cell carcinoma (BCC) Hypertension Surgical History Surgical History (Updated 02/14/24 @ 09:43 by Kayley Cheney CMA) H/O eye surgery Hx of umbilical hernia repair Robotic laparoscopic repair 5 cm umbilical hernia with mesh 01/30/24 Family History Family History Father Hypertension Heart disease Social History Social History Smoking status: Never smoker Second hand tobacco smoke exposure: No Alcohol intake: current Drinks per week: 30 Alcohol use details: BEER Substance use: never Substance use type: does not use Lack of Transportation: No Lack of Food: Never True Current Housing: I Have Housing Concerned About Future Housing: No Difficulty Paying Gas/Electric Bills: No Difficulty Paying for Meds: No Currently Unemployed: No Education: High School Diploma/GED Difficulty w/ Childcare or Family Care: No Living arrangements: with family Spiritual care concerns: No Meds Home Medications and Allergies Home Medications Medication Instructions Recorded Confirmed Type losartan 100 1 tablet PO DAILY 03/22/23 02/15/24 History mg-hydrochlorothiazide 25 mg tablet Allergies Allergy/AdvReac Type Severity Reaction Status Date / Time No Known Allergies Allergy Verified 02/14/24 09:21 Vital Signs Vital Signs - 24 hr 03/10/24 17:13 03/10/24 17:25 03/10/24 17:18 Temperature Pulse Rate 160 H 150 H 155 H Respiratory Rate 18 Blood Pressure 127/104 H Pulse Oximetry 90 Oxygen Delivery Bag Valve Mask Oxygen Flow Rate 15 Fraction of Inspired Oxygen 03/10/24 17:18 03/10/24 18:53 03/10/24 18:54 Temperature 36.3 C L Pulse Rate 137 H 131 H Respiratory Rate 16 Blood Pressure 131/111 H 131/114 H Pulse Oximetry 90 100 Oxygen Delivery Bag Valve Mask Oxygen Flow Rate 15 Fraction of Inspired Oxygen 03/10/24 18:00 03/10/24 18:20 03/10/24 19:04 Temperature Pulse Rate 133 H 145 H 131 H Respiratory Rate 18 18 18 Blood Pressure Pulse Oximetry Oxygen Delivery Oxygen Flow Rate Fraction of Inspired Oxygen 03/10/24 19:06 03/10/24 19:09 03/10/24 18:20 Temperature Pulse Rate 126 H 121 H 135 H Respiratory Rate Blood Pressure 133/114 H Pulse Oximetry 100 Oxygen Delivery Mechanical Ventilation Oxygen Flow Rate Fraction of Inspired Oxygen 100 03/10/24 19:44 03/10/24 19:30 03/10/24 19:50 Temperature Pulse Rate 119 H 102 H 108 H Respiratory Rate 15 13 12 Blood Pressure 100/72 Pulse Oximetry 100 Oxygen Delivery Oxygen Flow Rate Fra
--- NOTE | 2024-03-10 21:33 | ECG_ITS ---
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 Measurements Intervals [place] Rate: 99 P: 0 TN: 0 QRS: -29 QRSD: 109 T: 18 QT: 365 QTc: 469 Interpretive Statements ATRIAL FIBRILLATION BORDERLINE LEFT AXIS DEVIATION [QRS AXIS < -20] POSSIBLE RIGHT VENTRICULAR CONDUCTION DELAY [RSR (QR) IN V1/V2] NONSPECIFIC ST AND T-WAVE ABNORMALITY ABNORMAL RHYTHM ECG INTERPRETATION BASED ON A DEFAULT AGE OF 40 YEARS Compared to ECG 03/10/2024 19:19:09 VENTRICULAR RATE HAS DECREASED Electronically Signed On 03-11-2024 14:19:23 CDT by Blair Bland M.D.
--- NOTE | 2024-03-10 21:39 | WPDCARDPROC ---
Cardiac Cath Procedure Note Date of procedure:: 03/10/24 Performing physician:: Mak Ritter MD Indication:: out of hospital cardiac arrest atrial fibrillation subtle ST elevation Brief clinical history:: this is a 63-year-old man without prior cardiac history. He was experiencing chest pain today while doing yd work. At home he collapsed and 911 was called. When 1st responders arrived an AED was applied which delivered defibrillation. he was brought to this hospital's emergency room and is found to be in rapid atrial fibrillation and with subtle ST elevation in leads [address] depression inferiorly and in the precordial leads. He was given intravenous amiodarone which is improved his heart rate and I was then summoned as the interventionalist on-call and directed STEMI to be activated. Procedure Procedure performed:: Emergency coronary angiography emergency PCI(DELIA) to the circumflex left ventriculogram Sedation/Medication given:: midazolam 6 mg in 2 mg IV push aliquots Access site:: right femoral artery Estimated blood loss:: 25 cc Procedure note:: patient was brought to the cardiac catheterization lab in the emergency setting described above. He was agitated on the director of labor relations table. The emergency room physician told me that he did not have a good response to propofol. He received additional midazolam in IV push aliquots during the procedure for sedation purposes. The right femoral triangle was prepped and draped in the normal sterile fashion. Anesthesia was provided with 15 cc of lidocaine infiltrated locally. using the modified Seldinger technique the femoral artery was punctured and a 6 Salvadorean vascular sheath was placed. After this I used a standard FL4 catheter to inject the left coronary artery in multiple projections. A 5 Salvadorean JR4 catheter was used to engage and inject the right coronary artery. Following this the cineangiograms were reviewed and emergency PCI of the circumflex was carried out. Prior to PCI the patient received 325 mg of aspirin and 180 mg of Brilinta down his OG tube. He was systemically anticoagulated by bolus and infusion of Angiomax during this PCI. Following revascularization of the circumflex as detailed above the guiding catheters were removed and a 5 Salvadorean angled pigtail was used to measure left-sided hemodynamics and to inject a left ventriculogram in the SIMMS projection. The case was then terminated the sheath was sutured into position he was taken to the ICU for post mi/PCI recovery. Findings:: hemodynamics: Central aortic pressure was 130 over 96 left ventricle 130/5 end-diastolic 18 there is no gradient on pullback across the aortic valve. Left ventricle: The LV is normal in size the SIMMS projection shows good contractility in all segments a global ejection fraction is 50-55%. The left main coronary artery is very large and widely patent and has a Gavin crook deformity. The left anterior descending is a medium caliber artery extending down to the apex the LAD and its branches have no significant disease. The circumflex is a medium caliber artery which proximally is somewhat tortuous. The circumflex is 100% occluded in its midportion and this is prior to any significant marginal branches. Angiographically this appears to be an abrupt thrombotic occlusion the right coronary artery is large in caliber and dominant to the posterior circulation. There is some proximal tortuosity to the RCA with somewhat difficult engagement of the artery with the diagnostic catheter however the vessel is seen adequately and there is no significant right coronary disease. Intervention: The left coronary artery was engaged using a CLS 3.5 guiding catheter. I used a 0.014 corporate pilot 150 wire to probe and traverse the occluded segment of the circumflex. This was advanced into the major obtuse marginal branch. The traversing the stent occlusion with a guidewire did res
--- NOTE | 2024-03-10 22:32 | PC.NURSE ---
Dr. Lai updated regarding patient condition. Patient able to follow simple commands, cancel hypothermia protocol. Orders for sedation received.
[2024-03-10 22:53] LABS: Cholesterol 186 mg/dL (0-200); HDL Direct 58 mg/dL; Triglycerides 115 mg/dL (<150)
[2024-03-10 23:04] LABS: LDL Cholesterol Direct 108 mg/dL
--- NOTE | 2024-03-10 23:04 | PM.IMCN ---
Assessment and Plan Assessment and plan (1) Acute ST elevation myocardial infarction (STEMI) due to occlusion of circumflex coronary artery: Code(s): I21.21 - ST elevation (STEMI) myocardial infarction involving left circumflex coronary artery Status: Acute (2) Cardiac arrest with successful resuscitation: Code(s): I46.9 - Cardiac arrest, cause unspecified Status: Acute (3) Atrial fibrillation: Qualifiers: Atrial fibrillation type: unspecified Qualified Code(s): I48.91 - Unspecified atrial fibrillation Code(s): I48.91 - Unspecified atrial fibrillation Status: Acute (4) Acute hypokalemia: Code(s): E87.6 - Hypokalemia Status: Acute (5) Laceration of left ear: Qualifiers: Encounter type: initial encounter Qualified Code(s): S01.312A - Laceration without foreign body of left ear, initial encounter Code(s): S01.312A - Laceration without foreign body of left ear, initial encounter Status: Acute Plan Patient had cardiac catheterization due to STEMI resulting in cardiac arrest. Patient and successful return of circulation after 80 appointment. Patient now has stent in the circumflex artery after 100% occlusion. Patient received aspirin and Brilinta and is receiving Angiomax per Cardiology management. The patient is intubated and sedated in the ICU. Rfid Technician managing ventilator and sedation. Given that the patient was intubated into the esophagus initially and did have some vomiting after arriving to the ICU will place patient on empiric antibiotic therapy with Unasyn to cover for possible aspiration. Serial troponins have been ordered per Cardiology. Patient will require dual antiplatelet therapy for minimum of 1 year. Lipid panel is been obtained and is relatively unremarkable. Patient will still need long-term statin therapy for secondary prophylaxis. The patient's home antihypertensives are currently on hold the patient is having some mild hypotension due to sedation. Patient is in atrial fibrillation this seemed to be acute due to acute ischemic event. Patient is on amiodarone infusion in an being monitored closely. Patient does have associated hypokalemia and received 40 mEq potassium chloride rider. Patient's magnesium was lower limit of normal in 2 g magnesium sulfate rider has been administered. Will repeat electrolyte panel with 6 hour troponin and replace potassium again if clinically indicated. Goal is for magnesium of 2 and potassium of 4 given patient's unstable cardiac rhythm Patient had about a 3 cm laceration to the left ear which I repaired. Please see procedure note. Four sutures are in place. Sutures will need to be removed in 7-10 days. MEDICAL DECISION MAKING NARRATIVE -Spoke with the ED provider in detail regarding patient's evaluation, workup and management -Patient seen and examined at bedside -Collaborated with patient's nurse at the bedside in detail and addressed all concerns -Labs, electrolytes, radiology, investigations and test results reviewed -ED/Consult/Nursing/Ancilliary notes on the chart reviewed and appreciated -Spoke with patient/family at the bedside and answered all questions Patient's code status was verified with patient's at bedside. They do not yet have advanced directives in place. This and has encouraged her to formalize documentation. Patient's home med rec has been reconciled. Patient is not taking any alvu-lah-rjquanr medications. DVT prophylaxis per Cardiology Service. HPI Date of Consult Consult date: 03/11/24 Requesting Physician: Mak Ritter MD Primary Care Provider: Mak Baker, Consult Narrative Narrative: 63-year-old male with a past medical history of essential hypertension who presented to the ER after having collapse found to be in any unstable cardiac rhythm requiring defibrillation. The patient is active in his day-to-day life. He runs at
[2024-03-10] MEDS: MIDAZOLAM HCL (*CRX) 2 MG/2 ML VIAL 5 MG IV PUSH (23:05)
[2024-03-10] MEDS: METOPROLOL SUCCINATE EXT REL 50 MG TABCR PO (23:12)
--- NOTE | 2024-03-10 23:41 | ADMGEN ---
This patient, Houston Wahl, was admitted to Intensive Care Unit-6 at 2230. Patient/family oriented to hospital policies and general routines including ID bracelet, bed and alarms, visiting hours, pain management, procedures, bathroom and other care routines, personal items, smoking policy, room service/diet, and visiting hours. Information on how to activate the Rapid Response Team has been discussed. Patient/Family are encouraged to report perceived risks to care and to ask questions if they do not understand what they are told or what they should do.
--- NOTE | 2024-03-10 23:54 | PC.NURSE ---
Order received from Dr Garcia for Dtap vaccine due to laceration with sutures on earlobe. Order verified with pharmacy.
[2024-03-11] VITALS (41 sets, daily range): BP systolic 79–119; BP diastolic 55–86; PULSE 68–93; RESP 11–24; TEMP 36.2–38.4; O2SAT 71–100
--- NOTE | 2024-03-11 | ECHO_ITS ---
Patient Info Name: Houston Wahl Age: 63 years : 1960 Gender: Male Ht: 69 in Wt: 179 lbs BSA: 2.00 m2 HR: 85 bpm BP: 105 / 74 mmHg Heart Rhythm: Atrial Fibrillation Technical Quality: Fair Exam Date: 03/11/2024 1:20 PM Exam Location: Echo Lab Patient Status: Inpatient Admit Date: 03/10/2024 Staff Ordering Physician: Deshawn Lai MD Environmental Services Aide: Poli Rae RDCS Attending Provider: Mak Ritter MD Exam Type: CA echo dop color flow w con Study Info Indications I21.3 - ST elevation (STEMI) myocardial infarction of unspecified site Complete two-dimensional, color flow and Doppler transthoracic echocardiogram is performed with contrast to opacify the left ventricle and to improve the deliniation of the left ventricle endocardial borders. Contrast/Agitated Saline Contrast/Ag. Saline: Definity Amount: 2.00 ml IV Access Condition: patent with no signs of infiltration Summary 1. Left ventricular chamber dimension is normal. 2. Left ventricular systolic function is normal, estimated at 55-60%. 3. There is hypokinesis of the basal and mid anterolateral wall, the inferolateral wall. 4. Right ventricular systolic function is normal. 5. There is mild to moderate mitral valve regurgitation. 6. There is mild tricuspid valve regurgitation. Left Ventricle There is hypokinesis of the basal and mid anterolateral wall, the inferolateral wall. Left ventricular chamber dimension is normal. Left ventricular systolic function is normal, estimated at 55-60%. There is no increased left ventricular wall thickness. Right Ventricle Right ventricular chamber dimension is normal. Right ventricular systolic function is normal. Left Atria Left atrial chamber dimension is normal. Right Atria Right atrial chamber dimension is normal. Atrial Septum Intact interatrial septum visualized by color flow imaging. Aortic Valve The aortic valve is not well visualized. There is no aortic valve stenosis. There is trace aortic valve regurgitation. Pulmonic Valve The pulmonic valve is not well visualized. There is trace pulmonic regurgitation. Mitral Valve There is mild to moderate mitral valve regurgitation. Tricuspid Valve There is mild tricuspid valve regurgitation. Pericardium/Pleural There is no pericardial effusion. Inferior Vena Cava Dilated inferior vena cava with <50% collapse upon inspiration consistent with elevated right atrial pressure, 15 mmHg. Aorta The aortic root size at the sinus of Valsalva is normal. Left Ventricular Outflow Tract Name Value Normal LVOT 2D LVOT Diameter 2.00 cm LVOT Doppler LVOT Peak Gradient 4 mmHg LVOT Mean Gradient 2 mmHg LVOT VTI 16.24 cm LVOT VTI/AV VTI Ratio 0.76 LVOT Stroke Volume 51.05 ml LVOT CO 2.80 l/min LVOT CI 1.40 L/min/m2 Pulmonic Valve Name Value Normal
[2024-03-11] MEDS: LIDOCAINE HCL 1% LOCAL INJ 10 ML VIAL INFILTRATE (00:05)
[2024-03-11] MEDS: MAGNESIUM SULF 2 GM/WATER 50ML 2 GM/50 ML BAG IVPB (00:05)
[2024-03-11] MEDS: SODIUM CHLORIDE 0.9% IV 1,000 ML 125 ML IV CONT (00:06)
[2024-03-11] MEDS: TETANUS,DIPHTHERIA,AC PERTUSSIS ADULT (0.5 ML) BOOSTRIX IM (00:19)
--- NOTE | 2024-03-11 00:59 | PC.NURSE ---
Angiomax done at 2340
--- NOTE | 2024-03-11 01:11 | WPDPROCEDUR ---
Procedures Laceration Laceration 1: Site: other (Left ear lobe) Side (if applicable): left Size (cm): 3 Description: linear and clean Depth: [id number] Anesthetic used: lidocaine 1% Anesthesia technique: local infiltration Amount (ml): 5 Pre-repair: wound explored and irrigated Skin layer closed with: vicryl and prolene Size (cm): 6-0 Number of sutures: 4 Technique: simple, interrupted
[2024-03-11 01:40] LABS: MRSA (PCR) NOT DETECTED (NOT DETECTE)
[2024-03-11] MEDS: AMPICILLIN SULB 3 GM/NS 100 ML 3 GM/100 ML VIAL IVPB ×5 (02:03→23:20)
[2024-03-11 02:25] LABS: Anion Gap 9 mmol/L (4-12); Blood Urea Nitrogen 13 mg/dL (9-20); Calcium 8.8 mg/dL (8.4-10.2); Carbon Dioxide 21 mmol/L (22-30); Chloride 108 mmol/L (98-107); Estimated CRCL calculation 76 ml/min; Estimated Glomerular Filt Rate > 60; Glucose 109 mg/dL (65-110); Potassium 3.7 mmol/L (3.4-5.0); Sodium 138 mmol/L (137-145)
[2024-03-11] MEDS: AMIODARONE 360 MG/D5W 200 ML 360 MG/200 ML BAG 16.67 MG IV CONT ×2 (04:18→14:36)
[2024-03-11 04:32] LABS: Hematocrit 40.7 % (42.0-52.0); Hemoglobin 13.5 g/dL (14.0-18.0); Mean Corpuscular HGB Conc 33.2 g/dl (32-36); Mean Corpuscular Hemoglobin 31.7 pg (26-34); Mean Corpuscular Volume 95.5 fl (80-100); Mean Platelet Volume 10.7 fl (7.4-10.4); Platelet Count Result 205 k/mm3 (150-375); Red Blood Count 4.26 M/mm3 (4.6-6.20); Red Cell Distribution Width 13.9 % (11.5-14.5); White Blood Count 8.4 K/mm3 (4.5-10.0)
[2024-03-11 04:54] LABS: Hemoglobin A1C 5.2 % (<5.7)
--- NOTE | 2024-03-11 05:11 | ECG_ITS ---
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 Measurements Intervals [place] Rate: 102 P: 0 MO: 0 QRS: 59 QRSD: 106 T: 57 QT: 358 QTc: 468 Interpretive Statements ATRIAL FIBRILLATION WITH RAPID VENTRICULAR RESPONSE MODERATE ST DEPRESSION [0.05+ mV ST DEPRESSION] Compared to ECG 03/10/2024 22:37:57 NO SIGNIFICANT CHANGES Electronically Signed On 03-11-2024 14:20:13 CDT by Blair Bland M.D.
[2024-03-11 06:32] LABS: Alveolar/Arterial O2 Gradient 170.2 mmHg; Base Excess ABG -0.9 mEq/l (+/-2.0); Fractional Inspired Oxygen 50 %; HCO3 ABG 22.4 mEq/l (22.0-26.0); Oxygen Content ABG 19.7 %vol (16.0-22.0); Oxyhemoglobin 98.3 % THb (90.0-100.0); PCO2 ABG 33.1 mmHg (35.0-45.0); PO2 ABG 149.1 mmHg (80.0-100.0); PO2 FiO2 Ratio Arterial Blood 2.98 %; Total Hemoglobin 14.1 g/dL (12.0-18.0); pH ABG 7.448 (7.350-7.450)
[2024-03-11 06:33] LABS: Device VENTILATOR; Modified Allen's Test Pass; Site Drawn LEFT RADIAL
[2024-03-11 06:34] LABS: Arterial Blood Gas PEEP 5 cmH2O; Arterial Blood Gas Tidal Volume 450 ml; Arterial Blood Gas Vent Mode CMV; Arterial Blood Gas Ventilator rate 14 /MIN
[2024-03-11 07:12] LABS: Alanine Aminotransferase 124 U/L (6-50); Albumin Level 3.5 g/dL (3.5-5.1); Alkaline Phosphatase 53 U/L (38-126); Anion Gap 7 mmol/L (4-12); Aspartate Amino Transferase 288 U/L (17-59); Bilirubin,Total 1.5 mg/dL (0.2-1.3); Blood Urea Nitrogen 12 mg/dL (9-20); Calcium 8.5 mg/dL (8.4-10.2); Carbon Dioxide 20 mmol/L (22-30); Chloride 112 mmol/L (98-107); Estimated CRCL calculation 84 ml/min; Estimated Glomerular Filt Rate > 60; Glucose 100 mg/dL (65-110); Magnesium 2.4 mg/dL (1.6-2.3); Potassium 3.5 mmol/L (3.4-5.0); Sodium 139 mmol/L (137-145)
--- NOTE | 2024-03-11 08:32 | WPDCNINT ---
Assessment and Plan Assessment and plan (1) Acute ST elevation myocardial infarction (STEMI) due to occlusion of circumflex coronary artery: Code(s): I21.21 - ST elevation (STEMI) myocardial infarction involving left circumflex coronary artery Status: Acute Assessment and Plan: Status post PCI of circumflex DAPT, ARB and beta-mohamud once blood pressure allows, statin currently held due to elevated LFTs Check echocardiogram [place]ath has been removed (2) Laceration of left ear: Qualifiers: Encounter type: initial encounter Qualified Code(s): S01.312A - Laceration without foreign body of left ear, initial encounter Code(s): S01.312A - Laceration without foreign body of left ear, initial encounter Status: Acute Assessment and Plan: Status post suturing (3) Atrial fibrillation: Qualifiers: Atrial fibrillation type: unspecified Qualified Code(s): I48.91 - Unspecified atrial fibrillation Code(s): I48.91 - Unspecified atrial fibrillation Status: Acute Assessment and Plan: Continue amiodarone drip Will start beta-mohamud as blood pressure allows Start anticoagulation if patient remains in AFib fibrillation (4) Acute respiratory failure: Code(s): J96.00 - Acute respiratory failure, unspecified whether with hypoxia or hypercapnia Status: Acute Assessment and Plan: Acute Respiratory failure secondary to cardiac arrest, aspiration pneumonia Currently on mechanical ventilation intubated and sedated Chest x-ray and ABG reviewed I have held sedation and placed patient PSV weaning trial. I will evaluate for extubation (5) Elevated liver enzymes: Code(s): R74.8 - Abnormal levels of other serum enzymes Status: Acute Assessment and Plan: Likely secondary to chronic alcohol use Check viral hepatitis panel Check a right upper quadrant ultrasound Hold statin for now (6) Rib fracture: Code(s): S22.39XA - Fracture of one rib, unspecified side, initial encounter for closed fracture Status: Acute Assessment and Plan: Pain control (7) Aspiration pneumonia: Code(s): J69.0 - Pneumonitis due to inhalation of food and vomit Status: Acute Assessment and Plan: Blood cultures have been sent Continue Unasyn Plan DVT prophylaxis -will start therapeutic dose Lovenox today Stress ulcer prophylaxis -I anticipate patient will be extubated and will not need S2 P Nutrition - npo Code Status - Full Code I spoke to patient's and parents at bedside and them patient's status and current treatment plan. I answered all their questions. Patient is full code Total Critical Care Time - 35 minutes Due to a high probability of clinically significant, life threatening deterioration, the patient required my highest level of preparedness to intervene emergently and I personally spent this critical care time directly and personally managing the patient. This critical care time included obtaining a history; examining the patient; pulse oximetry; ordering and review of studies; arranging urgent treatment with development of a management plan; evaluation of patient's response to treatment; frequent reassessment; and discussions with other providers. It was exclusive of separately billable procedures and treating other patients and teaching time. Please see Assessment and Plan section and the rest of the note for further information on patient assessment and treatment Pathology Secretary/Transcriptionist Consult Note Consult date: 03/11/24 Reason for consult: Acute respiratory failure, cardiac arrest, STEMI HPI: Houston Wahl is a 63 year old male with a past medical history of essential hypertension and daily alcohol intake who presented to the ER after collapsing at home. Bystander CPR was done by family and on arrival of EMS patient was found to be in unstable cardiac rhythm requiring defibrillation. Patient was defibrillated and ROSC
[2024-03-11] MEDS: LACTATED RINGERS 1,000 ML 100 ML IV CONT (08:55)
[2024-03-11] MEDS: ASPIRIN 81 MG CHEWABLE TABLET PO (08:55)
[2024-03-11] MEDS: PANTOPRAZOLE SODIUM IV 40 MG VIAL IV PUSH (08:56)
[2024-03-11] MEDS: TICAGRELOR 90 MG TABLET PO ×2 (08:56→20:33)
[2024-03-11] MEDS: LOSARTAN POTASSIUM 25 MG TABLET PO (08:56)
--- NOTE | 2024-03-11 08:56 | PM.PNCARD ---
Progress Note: A&P Assessment and Plan (1) Acute ST elevation myocardial infarction (STEMI) due to occlusion of circumflex coronary artery: Code(s): I21.21 - ST elevation (STEMI) myocardial infarction involving left circumflex coronary artery Status: Acute Assessment and Plan: Underwent emergent cardiac catheterization 03/10 which showed the LCX was 100% occluded in the midportion with an acute thrombotic occlusion. S/p successful PCI using DELIA x 1. LV angiogram showed preserved LVEF. Echocardiogram pending. Continue ASA 81mg once daily indefinitely. Continue Brilinta 90mg BID for at least 1 year. Metoprolol ordered, however, will hold for now given soft blood pressures. High-intensity statin on hold for now due to elevated LFTs, will resume when LFTs improve. (2) Cardiac arrest with successful resuscitation: Code(s): I46.9 - Cardiac arrest, cause unspecified Status: Acute Assessment and Plan: In setting of acute STEMI. (3) Atrial fibrillation: Qualifiers: Atrial fibrillation type: unspecified Qualified Code(s): I48.91 - Unspecified atrial fibrillation Code(s): I48.91 - Unspecified atrial fibrillation Status: Acute Assessment and Plan: New diagnosis for the patient. [id number] of 2. In setting of acute STEMI. Rate controlled on Amiodarone drip. Continue Amiodarone drip for now. Holding Metoprolol given soft blood pressures. Therapeutic Lovenox ordered to start this evening. (4) Aspiration pneumonia: Code(s): J69.0 - Pneumonitis due to inhalation of food and vomit Status: Acute Assessment and Plan: On antibiotics as per ICU team. (5) Elevated liver enzymes: Code(s): R74.8 - Abnormal levels of other serum enzymes Status: Acute Assessment and Plan: Resume high intensity statin when LFTs improve. (6) Acute respiratory failure: Code(s): J96.00 - Acute respiratory failure, unspecified whether with hypoxia or hypercapnia Status: Acute Assessment and Plan: Management of ventilator as per ICU team. (7) Hypertension: Qualifiers: Hypertension type: unspecified Qualified Code(s): I10 - Essential (primary) hypertension Code(s): I10 - Essential (primary) hypertension Status: Chronic Assessment and Plan: Holding Losartan due to soft blood pressures. Plan Recommendations and plan discussed with Hospitalist. Subjective Date/time seen: 03/11/24 08:56 Interval history: Reason for visit: STEMI, cardiac arrest, atrial fibrillation HPI: This is a 63-year-old man who is unknown to me prior to this evening. He apparently does not have a prior history of heart disease and had a cardiac arrest outside of the hospital in his home. In the field he was defibrillated by an AED device. He was brought to the emergency room here where he was intubated and found to be in AFib with RVR. He was placed on some Amiodarone which controlled his heart rate. With a better heart rate it is evident on his ECG that there is mild ST elevation in leads 1 and aVL with depression in the inferior leads. His electrocardiogram when he was here in January of this year for noncardiac surgery was normal. According to the history he had significant back pain prior to arresting. A CT of the aorta in the emergency room showed no evidence of dissection. In this setting he is being brought for emergency coronary angiography for suspected ACS/PR. Date of service 03/11: Remains intubated. In rate controlled AFIB. at beside. Review of Systems Review of Systems: ROS unobtainable: Yes unobtainable due to endotracheal tube Exam Const: General: no acute distress Other: Intubated, on mechanical ventilation HENMT: Other: OETT in place Eyes: Sclera: sclerae normal Resp: Other: On mechanical ventilation Cardio: Rhythm: abnormal rhythm irregularly irregular Skin: General skin
[2024-03-11 08:58] LABS: Base Excess ABG -1.8 mEq/l (+/-2.0); Fractional Inspired Oxygen 40 %; Oxyhemoglobin 97.3 % THb (90.0-100.0); PCO2 ABG 39.2 mmHg (35.0-45.0); PO2 ABG 110.1 mmHg (80.0-100.0); PO2 FiO2 Ratio Arterial Blood 2.75 %; Total Hemoglobin 13.8 g/dL (12.0-18.0); pH ABG 7.386 (7.350-7.450)
[2024-03-11 08:59] LABS: Device VENTILATOR; Site Drawn LEFT RADIAL
[2024-03-11 09:01] LABS: Arterial Blood Gas PEEP 5 cmH2O; Arterial Blood Gas Pressure Support 8 cmH2O; Arterial Blood Gas Vent Mode SPONTANEOUS
[2024-03-11 09:25] LABS: Hepatitis B Surface Antigen Negative (Negative)
[2024-03-11 09:31] LABS: HAV RESULT Negative (Negative); Hepatitis B Core IgM Result Negative (Negative)
[2024-03-11 09:43] LABS: Hepatitis C Virus Antibody Negative (Negative)
[2024-03-11] MEDS: PERFLUTREN LIPID MICROSPHERES 1.5 ML VIAL DILUTED TO 10 ML TOTAL VOLUME IV PUSH (13:50)
[2024-03-11] MEDS: LACTATED RINGERS 1,000 ML 75 ML IV CONT (19:15)
[2024-03-11] MEDS: ENOXAPARIN 80 MG/0.8 ML SYRINGE SUB-Q (20:33)
[2024-03-12] VITALS (16 sets, daily range): BP systolic 108–144; BP diastolic 70–92; PULSE 57–78; RESP 12–17; TEMP 36.6–38.1; O2SAT 97–100
[2024-03-12] MEDS: AMIODARONE 360 MG/D5W 200 ML 360 MG/200 ML BAG 16.67 MG IV CONT (03:30)
[2024-03-12 03:38] LABS: Hematocrit 39.3 % (42.0-52.0); Hemoglobin 13.5 g/dL (14.0-18.0); Mean Corpuscular HGB Conc 34.4 g/dl (32-36); Mean Corpuscular Hemoglobin 31.2 pg (26-34); Mean Corpuscular Volume 90.8 fl (80-100); Mean Platelet Volume 10.6 fl (7.4-10.4); Platelet Count Result 205 k/mm3 (150-375); Red Blood Count 4.33 M/mm3 (4.6-6.20); Red Cell Distribution Width 13.7 % (11.5-14.5); White Blood Count 8.6 K/mm3 (4.5-10.0)
[2024-03-12 03:48] LABS: Alanine Aminotransferase 104 U/L (6-50); Albumin Level 3.3 g/dL (3.5-5.1); Alkaline Phosphatase 52 U/L (38-126); Anion Gap 5 mmol/L (4-12); Aspartate Amino Transferase 177 U/L (17-59); Bilirubin,Total 1.8 mg/dL (0.2-1.3); Blood Urea Nitrogen 9 mg/dL (9-20); Calcium 8.5 mg/dL (8.4-10.2); Carbon Dioxide 24 mmol/L (22-30); Chloride 107 mmol/L (98-107); Estimated CRCL calculation 95 ml/min; Estimated Glomerular Filt Rate > 60; Glucose 119 mg/dL (65-110); Magnesium 1.9 mg/dL (1.6-2.3); Potassium 3.2 mmol/L (3.4-5.0); Sodium 136 mmol/L (137-145)
[2024-03-12] MEDS: AMPICILLIN SULB 3 GM/NS 100 ML 3 GM/100 ML VIAL IVPB ×4 (05:22→23:53)
--- NOTE | 2024-03-12 07:29 | ECG_ITS ---
[facility] [address] Test Date: 2024-03-12 Pat Name: Houston Wahl Department: Room: ICU Gender: M Blind Lacer: : 1960 Requested By: Mak Lambert Order Number: [id number] Josselyn MD: Blair Bland M.D. Measurements Intervals [place] Rate: 60 P: 56 AK: 214 QRS: 51 QRSD: 94 T: 58 QT: 499 QTc: 501 Interpretive Statements SINUS RHYTHM WITH FIRST DEGREE AV BLOCK PROLONGED QT INTERVAL Compared to ECG 03/11/2024 09:24:10 First degree AV block now present Atrial fibrillation no longer present Electronically Signed On 03-12-2024 14:17:15 CDT by Blair Bland M.D.
--- NOTE | 2024-03-12 07:41 | PM.PNCARD ---
Progress Note: A&P Assessment and Plan (1) Acute ST elevation myocardial infarction (STEMI) due to occlusion of circumflex coronary artery: Code(s): I21.21 - ST elevation (STEMI) myocardial infarction involving left circumflex coronary artery Status: Acute (2) Cardiac arrest with successful resuscitation: Code(s): I46.9 - Cardiac arrest, cause unspecified Status: Acute Plan 63-year-old man with: Newly diagnosed coronary artery disease presenting with acute lateral myocardial infarction due to occlusion of the mid circumflex. This was complicated by [id number] cardiac arrest and the acute development of atrial fibrillation. He has been given intravenous amiodarone for the 1st 2 days and now has converted to sinus rhythm. Dual anti-platelet therapy should be continued systemic anticoagulation can be stopped at this time. Will continue low-dose losartan and metoprolol NG can moved to IMU today. Anticipate discharge in the next 48 hours or so as long as there are no additional complications Mak Ritter MD [facility] Subjective Date/time seen: Date of service: 03/12/24 07:41 Interval history: Reason for visit: STEMI, cardiac arrest, atrial fibrillation HPI: This is a 63-year-old man who is unknown to me prior to this evening. He apparently does not have a prior history of heart disease and had a cardiac arrest outside of the hospital in his home. In the field he was defibrillated by an AED device. He was brought to the emergency room here where he was intubated and found to be in AFib with RVR. He was placed on some Amiodarone which controlled his heart rate. With a better heart rate it is evident on his ECG that there is mild ST elevation in leads 1 and aVL with depression in the inferior leads. His electrocardiogram when he was here in January of this year for noncardiac surgery was normal. According to the history he had significant back pain prior to arresting. A CT of the aorta in the emergency room showed no evidence of dissection. In this setting he is being brought for emergency coronary angiography for suspected ACS/DC. Date of service 03/11: Remains intubated. In rate controlled AFIB. at beside. Date of service 03/12/2024: Patient extubated alert and responsive appears to have no significant neurological sequelae at this time. He has converted to sinus rhythm with intravenous amiodarone. Other than chest being sore from resuscitation he has no complaints Exam Const: General: no acute distress HENMT: Mouth: Yes moist mucous membranes Eyes: Sclera: sclerae normal Neck: Neck: supple and no JVD Resp: Effort & Inspection: normal respiratory effort Auscultation: clear to auscultation bilaterally Other: On mechanical ventilation Cardio: Rate: regular rate Rhythm: regular rhythm GI: Auscultation: normal bowel sounds Urinary Catheter: Urinary Catheter: patent and draining Skin: General skin exam: normal color Neuro: Other: intubated on ventilator support, patient is fighting his restraints Extrem: General: normal to inspection Other: Right groin puncture site looks fine Objective Data Vital Signs Vital Signs: Vital Signs - 24 hr 03/11/24 08:15 03/11/24 08:15 03/11/24 08:00 Temperature Pulse Rate 79 81 Respiratory Rate 14 Blood Pressure Pulse Oximetry 100 100 Oxygen Delivery Mechanical Ventilation Mechanical Ventilation Oxygen Flow Rate Fraction of Inspired Oxygen 40 40 03/11/24 08:00 03/11/24 08:00 03/11/24 08:15 Temperature Pulse Rate 81 Respiratory Rate 14 Blood Pressure Pulse Oximetry Oxygen Delivery Oxygen Flow Rate Fraction of Inspired Oxygen 40 40 03/11/24 08:00 03/11/24 10:00 03/11/24 08:00 Temperature 36.9 C Pulse Rate 81 80 81 Respiratory Rate 14 Blood Pressure 91/69 L Pulse Oximetry 71 L Oxygen Delivery Oxygen Flow Rate Fraction of Inspired Oxygen
--- NOTE | 2024-03-12 08:10 | WPDINTPN ---
Progress Note: A&P Assessment and Plan (1) Acute ST elevation myocardial infarction (STEMI) due to occlusion of circumflex coronary artery: Code(s): I21.21 - ST elevation (STEMI) myocardial infarction involving left circumflex coronary artery Status: Acute Assessment and Plan: Status post PCI of circumflex DAPT, start ARB and beta-mohamud o statin currently held due to elevated LFTs Echocardiogram Summary 1. Left ventricular chamber dimension is normal. 2. Left ventricular systolic function is normal, estimated at 55-60%. 3. There is hypokinesis of the basal and mid anterolateral wall, the inferolateral wall. 4. Right ventricular systolic function is normal. 5. There is mild to moderate mitral valve regurgitation. 6. There is mild tricuspid valve regurgitation. (2) Laceration of left ear: Qualifiers: Encounter type: initial encounter Qualified Code(s): S01.312A - Laceration without foreign body of left ear, initial encounter Code(s): S01.312A - Laceration without foreign body of left ear, initial encounter Status: Acute Assessment and Plan: Status post suturing (3) Atrial fibrillation: Qualifiers: Atrial fibrillation type: unspecified Qualified Code(s): I48.91 - Unspecified atrial fibrillation Code(s): I48.91 - Unspecified atrial fibrillation Status: Acute Assessment and Plan: Patient converted to sinus rhythm this morning. Cardiology discontinued Amiodarone drip Will start beta-mohamud today Continue anticoagulation for another 24 hours to make sure patient states in sinus rhythm (4) Acute respiratory failure: Code(s): J96.00 - Acute respiratory failure, unspecified whether with hypoxia or hypercapnia Status: Acute Assessment and Plan: Acute Respiratory failure secondary to cardiac arrest, aspiration pneumonia 03/12 patient extubated after a successful weaning trial Antibiotics as below Incentive spirometry (5) Elevated liver enzymes: Code(s): R74.8 - Abnormal levels of other serum enzymes Status: Acute Assessment and Plan: Likely secondary to chronic alcohol use Negative viral hepatitis panel Unremarkable right upper quadrant ultrasound Hold statin for now (6) Rib fracture: Code(s): S22.39XA - Fracture of one rib, unspecified side, initial encounter for closed fracture Status: Acute Assessment and Plan: Pain control with Lidoderm patch and p.r.n. [place] (7) Aspiration pneumonia: Code(s): J69.0 - Pneumonitis due to inhalation of food and vomit Status: Acute Assessment and Plan: Blood cultures have been sent Continue Unasyn Plan DVT prophylaxis -continue therapeutic dose Lovenox for now Nutrition -advance diet Code Status - Full Code I spoke to patient and patient's and parents at bedside and them patient's status and current treatment plan. I answered all their questions. Patient is full code Consult PT OT Incentive spirometry Up in chair Transfer out of ICU Subjective Date/time seen: 03/12/24 Overnight events reviewed. Low-grade fever overnight Patient was extubated yesterday after a successful weaning trial. Continues to be on amiodarone and converted to sinus rhythm this morning Complains of chest pain on deep breathing and coughing rates it at 6/10. Cough is present not much sputum. Sore throat. Feels weak and tired. Denies any other complaint. All other systems were reviewed and were negative Other Vitals acceptable. Tolerating liquid diet Good urine output Review of Systems Review of Systems: All systems reviewed & are unremarkable except as noted in HPI and below (HPI) Exam Narrative: General: Pt is alert awake and in NAD Lungs/Chest: Trachea central course BS B/L base, No crackles or wheezing. Tender to deep palpation on sternum and surrounding area Cardiac: RRR. Normal S1 S2. No murmurs Circulation: Pedal p
--- NOTE | 2024-03-12 08:19 | PM.IMPN ---
Progress Note: A&P Assessment and Plan (1) Acute ST elevation myocardial infarction (STEMI) due to occlusion of circumflex coronary artery: Code(s): I21.21 - ST elevation (STEMI) myocardial infarction involving left circumflex coronary artery Status: Acute Assessment and Plan: Patient brought in to the ED after having fqu-gh-eyeygxss cardiac VTach/VFib arrest and found to have STEMI CTA chest showing no aortic dissection or aneurysm. Troponin climbed to 36. EKG showing subtle ST elevation in the high lateral leads. Patient taken for emergency LHC showing acute 100% occlusion of the mid circumflex status post PCI and stent placement to the circumflex Started on DAPT, ARB and Toprol XL. Crestor started but currently held due to elevated LFTs Echo showing EF 55-60% with HK of the basal and mid anterolateral wall and the inferolateral wall. Continue current aggressive medical regiment. (2) Acute respiratory failure: Code(s): J96.00 - Acute respiratory failure, unspecified whether with hypoxia or hypercapnia Status: Acute Assessment and Plan: Acute Respiratory failure secondary to cardiac arrest and aspiration pneumonia requiring intubation in the ED. / patient extubated after a successful weaning trial On abx for the aspiration. Weaned to room air. Encourage incentive spirometry use (3) Atrial fibrillation: Qualifiers: Atrial fibrillation type: unspecified Qualified Code(s): I48.91 - Unspecified atrial fibrillation Code(s): I48.91 - Unspecified atrial fibrillation Status: Acute Assessment and Plan: Patient was in aAFib on admission. Normal EKG in January 2024. He was treated with Amiodarone and has converted to sinus rhythm this morning. Cardiology discontinued Amiodarone drip. Toprol XL restarted today. Continue anticoagulation for at least another 24 hours Monitor on tele (4) Elevated liver enzymes: Code(s): R74.8 - Abnormal levels of other serum enzymes Status: Acute Assessment and Plan: Liver enzymes elevated on admission and AST peaked at 288 and ALT at 133. TBili up to 1.8 today. Viral hepatitis panel negative. Abd US normal without evidence of cirrhosis. Likely secondary to shock liver from the arrest but consider related to chronic alcohol use Holding statin for now but probably can resume tomorrow Start thiamine and folate. Monitor with CIWA. (5) Rib fracture: Code(s): S22.39XA - Fracture of one rib, unspecified side, initial encounter for closed fracture Status: Acute Assessment and Plan: CTA chest showing multiple nondisplaced bilateral anterior rib fractures. Related to the arrest Pain control with Lidoderm patch and p.r.n. [place] (6) Aspiration pneumonia: Code(s): J69.0 - Pneumonitis due to inhalation of food and vomit Status: Acute Assessment and Plan: CTA chest showing dependent lung airspace opacities concerning for aspiration. BCx NGTD MRSA screen negative. Unasyn started. WBC normal. having fevers still but could be atelectasis. Continue Unasyn for now (7) Fever: Code(s): R50.9 - Fever, unspecified Status: Acute Assessment and Plan: Patient with fever overnight. He does not have the positive pressure from mechanical ventilation and pleuritic pain from the rib fractures so consider atelectasis. No UA drawn and CTA showing moderated left periuretheral stranding so consider occult UTI Follow fever curve for now. Remove Mao. Hold on UA for now (8) Laceration of left ear: Qualifiers: Encounter type: initial encounter Qualified Code(s): S01.312A - Laceration without foreign body of left ear, initial encounter Code(s): S01.312A - Laceration without foreign body of left ear, initial encounter Status: Acute Assessment and Plan: Status post suturing Plan DVT prophylaxis -continue therapeutic dose Lovenox
[2024-03-12] MEDS: LIDOCAINE 5% PATCH 1 PATCH TRANSDERM (08:52)
[2024-03-12] MEDS: METOPROLOL SUCCINATE EXT REL 25 MG TABCR PO (08:53)
[2024-03-12] MEDS: LOSARTAN POTASSIUM 25 MG TABLET PO (08:53)
[2024-03-12] MEDS: ENOXAPARIN 80 MG/0.8 ML SYRINGE SUB-Q ×2 (08:53→20:47)
[2024-03-12] MEDS: ASPIRIN 81 MG CHEWABLE TABLET PO (08:53)
[2024-03-12] MEDS: POTASSIUM CHLORIDE 20 MEQ ER TABLET 40 MEQ PO ×2 (08:53→17:05)
[2024-03-12] MEDS: TICAGRELOR 90 MG TABLET PO ×2 (08:54→20:47)
--- NOTE | 2024-03-12 10:38 | PCDIET ---
Physician consult for heart healthy education. See Nutritional Teaching Intervention. Thank you for the consult.
[2024-03-12 11:24] LABS: Glucose Point of Care 130 mg/dl (65-105)
[2024-03-12] MEDS: FOLIC ACID 1 MG TABLET PO (12:01)
[2024-03-12] MEDS: THIAMINE HCL 100 MG TABLET PO (12:01)
[2024-03-12] MEDS: ONDANSETRON INJ 4 MG/2 ML VIAL (17:05)
[2024-03-13] VITALS (15 sets, daily range): BP systolic 141–157; BP diastolic 81–95; PULSE 56–89; RESP 12–16; TEMP 36.3–37.4; O2SAT 94–97
[2024-03-13 04:24] LABS: Hematocrit 36.1 % (42.0-52.0); Hemoglobin 12.3 g/dL (14.0-18.0); Mean Corpuscular HGB Conc 34.1 g/dl (32-36); Mean Corpuscular Hemoglobin 31.3 pg (26-34); Mean Corpuscular Volume 91.9 fl (80-100); Mean Platelet Volume 11.1 fl (7.4-10.4); Platelet Count Result 203 k/mm3 (150-375); Red Blood Count 3.93 M/mm3 (4.6-6.20); Red Cell Distribution Width 13.3 % (11.5-14.5); White Blood Count 7.9 K/mm3 (4.5-10.0)
[2024-03-13 04:34] LABS: Alanine Aminotransferase 77 U/L (6-50); Albumin Level 3.4 g/dL (3.5-5.1); Alkaline Phosphatase 49 U/L (38-126); Anion Gap 4 mmol/L (4-12); Aspartate Amino Transferase 95 U/L (17-59); Bilirubin,Total 2.1 mg/dL (0.2-1.3); Blood Urea Nitrogen 13 mg/dL (9-20); Calcium 8.5 mg/dL (8.4-10.2); Carbon Dioxide 25 mmol/L (22-30); Chloride 106 mmol/L (98-107); Estimated CRCL calculation 84 ml/min; Estimated Glomerular Filt Rate > 60; Glucose 104 mg/dL (65-110); Potassium 3.2 mmol/L (3.4-5.0); Sodium 135 mmol/L (137-145)
[2024-03-13] MEDS: AMPICILLIN SULB 3 GM/NS 100 ML 3 GM/100 ML VIAL IVPB ×2 (05:35→11:53)
[2024-03-13] MEDS: LIDOCAINE 5% PATCH 1 PATCH TRANSDERM (08:55)
[2024-03-13] MEDS: METOPROLOL SUCCINATE EXT REL 25 MG TABCR PO (08:55)
[2024-03-13] MEDS: LOSARTAN POTASSIUM 25 MG TABLET PO (08:55)
[2024-03-13] MEDS: THIAMINE HCL 100 MG TABLET PO (08:55)
[2024-03-13] MEDS: ASPIRIN 81 MG CHEWABLE TABLET PO (08:55)
[2024-03-13] MEDS: FOLIC ACID 1 MG TABLET PO (08:55)
[2024-03-13] MEDS: ENOXAPARIN 80 MG/0.8 ML SYRINGE SUB-Q (08:55)
[2024-03-13] MEDS: TICAGRELOR 90 MG TABLET PO ×2 (08:56→20:50)
--- NOTE | 2024-03-13 10:45 | PM.PNCARD ---
Progress Note: A&P Assessment and Plan (1) Acute ST elevation myocardial infarction (STEMI) due to occlusion of circumflex coronary artery: Code(s): I21.21 - ST elevation (STEMI) myocardial infarction involving left circumflex coronary artery Status: Acute Assessment and Plan: Underwent emergent cardiac catheterization 03/10 which showed the LCX was 100% occluded in the midportion with an acute thrombotic occlusion. S/p successful PCI using DELIA x 1. LV angiogram showed preserved LVEF. Echocardiogram showed overall preserved EF with hypokinesis of the basal and mid anterolateral wall, inferolateral wall, mild-moderate MR, mild TR Continue ASA 81mg once daily indefinitely. Continue Brilinta 90mg BID for at least 1 year. Continue Toprol XL Losartan added, will increase to 50mg daily as his blood pressure is above goal High-intensity statin on hold for now due to elevated LFTs, will resume when LFTs improve. Anticipate discharge tomorrow. (2) Cardiac arrest with successful resuscitation: Code(s): I46.9 - Cardiac arrest, cause unspecified Status: Acute Assessment and Plan: In the setting of acute ME (3) Atrial fibrillation: Qualifiers: Atrial fibrillation type: unspecified Qualified Code(s): I48.91 - Unspecified atrial fibrillation Code(s): I48.91 - Unspecified atrial fibrillation Status: Acute Assessment and Plan: Back in sinus rhythm. Anticoagulation has been discontinued as to avoid triple therapy with DAPT and DOAC. (4) Aspiration pneumonia: Code(s): J69.0 - Pneumonitis due to inhalation of food and vomit Status: Acute Assessment and Plan: On abx per hospitalist Subjective Date/time seen: 03/13/24 10:45 Interval history: Reason for visit: STEMI, cardiac arrest, atrial fibrillation HPI: This is a 63-year-old man who is unknown to me prior to this evening. He apparently does not have a prior history of heart disease and had a cardiac arrest outside of the hospital in his home. In the field he was defibrillated by an AED device. He was brought to the emergency room here where he was intubated and found to be in AFib with RVR. He was placed on some Amiodarone which controlled his heart rate. With a better heart rate it is evident on his ECG that there is mild ST elevation in leads 1 and aVL with depression in the inferior leads. His electrocardiogram when he was here in January of this year for noncardiac surgery was normal. According to the history he had significant back pain prior to arresting. A CT of the aorta in the emergency room showed no evidence of dissection. In this setting he is being brought for emergency coronary angiography for suspected ACS/ME. Date of service 03/11: Remains intubated. In rate controlled AFIB. at beside. Date of service 03/12/2024: Patient extubated alert and responsive appears to have no significant neurological sequelae at this time. He has converted to sinus rhythm with intravenous amiodarone. Other than chest being sore from resuscitation he has no complaints Date of service 03/13/2024: Feeling well this morning. No chest pain, shortness of breath, palpitations. Remains in sinus rhythm. Does have some chest and back soreness from CPR Review of Systems Review of Systems: All systems reviewed & are unremarkable except as noted in HPI and below Exam Const: General: comfortable, no acute distress, alert and awake HENMT: Head: normal to inspection Ears: external ear abnormal (laceration left ear) Mouth: Yes moist mucous membranes Eyes: Sclera: sclerae normal Neck: Neck: supple and no JVD Resp: Effort & Inspection: normal respiratory effort Auscultation: clear to auscultation bilaterally Cardio: Rate: regular rate Rhythm: regular rhythm GI: Auscultation: normal bowel sounds Skin: General skin exam: normal color Neuro: General: patient oriented x3 Extrem: General: normal to
--- NOTE | 2024-03-13 11:48 | PM.IMPN ---
Progress Note: A&P Assessment and Plan (1) Acute ST elevation myocardial infarction (STEMI) due to occlusion of circumflex coronary artery: Code(s): I21.21 - ST elevation (STEMI) myocardial infarction involving left circumflex coronary artery Status: Acute Assessment and Plan: Patient brought in to the ED after having [id number] cardiac VTach/VFib arrest and found to have STEMI CTA chest showing no aortic dissection or aneurysm. Troponin climbed to 36. EKG showing subtle ST elevation in the high lateral leads. Patient taken for emergency LHC showing acute 100% occlusion of the mid circumflex status post PCI and stent placement to the circumflex Started on DAPT, ARB and Toprol XL. Crestor started but currently held due to elevated LFTs Echo showing EF 55-60% with HK of the basal and mid anterolateral wall and the inferolateral wall. Having left medial shoulder blade pain - anginal equivalent? Continue current aggressive medical regiment. Check EKG Plan home tomorrow if okay with others (2) Acute respiratory failure: Code(s): J96.00 - Acute respiratory failure, unspecified whether with hypoxia or hypercapnia Status: Acute Assessment and Plan: Acute Respiratory failure secondary to cardiac arrest and aspiration pneumonia requiring intubation in the ED. 6/ patient extubated after a successful weaning trial On abx for the aspiration. Weaned to room air. Encourage incentive spirometry use (3) Atrial fibrillation: Qualifiers: Atrial fibrillation type: unspecified Qualified Code(s): I48.91 - Unspecified atrial fibrillation Code(s): I48.91 - Unspecified atrial fibrillation Status: Acute Assessment and Plan: Patient was in AFib on admission. Normal EKG in January 2024. He was treated with Amiodarone and has converted to sinus rhythm this morning. Cardiology discontinued Amiodarone drip. Toprol XL restarted We continued anticoagulation for at least another 24 hours but he remains in NSR so will decrease lovenox Monitor on tele (4) Elevated liver enzymes: Code(s): R74.8 - Abnormal levels of other serum enzymes Status: Acute Assessment and Plan: Liver enzymes elevated on admission and AST peaked at 288 and ALT at 133. TBili up to 1.8 today. Viral hepatitis panel negative. Abd US normal without evidence of cirrhosis. Likely secondary to shock liver from the arrest but consider related to chronic alcohol use Holding statin for now but probably can resume Continue thiamine and folate. Monitor with CIWA. Check indirect bili (5) Rib fracture: Code(s): S22.39XA - Fracture of one rib, unspecified side, initial encounter for closed fracture Status: Acute Assessment and Plan: CTA chest showing multiple nondisplaced bilateral anterior rib fractures. Related to the arrest Pain control with Lidoderm patch and p.r.n. [place] (6) Aspiration pneumonia: Code(s): J69.0 - Pneumonitis due to inhalation of food and vomit Status: Acute Assessment and Plan: CTA chest showing dependent lung airspace opacities concerning for aspiration. BCx NGTD MRSA screen negative. Unasyn started. WBC normal. He was having fevers but fever free past 24 hours CXR showing possible focal LLL airspace disease Change to Augmentin (7) Fever: Code(s): R50.9 - Fever, unspecified Status: Acute Assessment and Plan: Patient with fever overnight. He does not have the positive pressure from mechanical ventilation and pleuritic pain from the rib fractures so consider atelectasis. No UA drawn and CTA showing moderated left periuretheral stranding so consider occult UTI [place] fever related to atelectasis and PNA. Fever curve better. Continue abx (8) Laceration of left ear: Qualifiers: Encounter type: initial encounter Qualified Code(s): S01.312A - Laceration without foreign body of left ear, initial e
[2024-03-13] MEDS: POTASSIUM CHLORIDE 20 MEQ ER TABLET 40 MEQ PO (11:53)
--- NOTE | 2024-03-13 12:05 | ECG_ITS ---
[facility] [address] Test Date: 2024-03-13 Pat Name: Houston Wahl Department: Room: 210 Gender: M Hcc Coders: RAMSEY : 1960 Requested By: Heron Mukherjee Order Number: [id number] Josselyn MD: Blair Bland M.D. Measurements Intervals [place] Rate: 62 P: 53 DE: 199 QRS: 52 QRSD: 94 T: 65 QT: 443 QTc: 453 Interpretive Statements SINUS RHYTHM Compared to ECG 03/12/2024 12:19:55 NO SIGNIFICANT CHANGES Electronically Signed On 03-13-2024 13:51:46 CDT by Blair Bland M.D.
[2024-03-13 14:08] LABS: Bilirubin Indirect 1.4 mg/dL (0-1.1)
[2024-03-13 14:33] LABS: Glucose Point of Care 107 mg/dl (65-105)
[2024-03-13 17:39] LABS: Glucose Point of Care 107 mg/dl (65-105)
[2024-03-13] MEDS: AMOXICILLIN/CLAVULANATE K 875-125 MG TAB 1 TABLET PO (20:50)
[2024-03-14] VITALS (9 sets, daily range): BP systolic 123–146; BP diastolic 73–89; PULSE 59–72; RESP 12–14; TEMP 36.5–37.5; O2SAT 96–99
[2024-03-14 04:19] LABS: Hematocrit 33.3 % (42.0-52.0); Mean Corpuscular Hemoglobin 30.6 pg (26-34); Mean Corpuscular Volume 92.8 fl (80-100); Mean Platelet Volume 10.9 fl (7.4-10.4); Platelet Count Result 209 k/mm3 (150-375); Red Blood Count 3.59 M/mm3 (4.6-6.20); Red Cell Distribution Width 13.2 % (11.5-14.5); White Blood Count 6.4 K/mm3 (4.5-10.0)
[2024-03-14 04:43] LABS: Alanine Aminotransferase 60 U/L (6-50); Albumin Level 3.4 g/dL (3.5-5.1); Alkaline Phosphatase 45 U/L (38-126); Anion Gap 4 mmol/L (4-12); Aspartate Amino Transferase 58 U/L (17-59); Bilirubin,Total 2.3 mg/dL (0.2-1.3); Blood Urea Nitrogen 25 mg/dL (9-20); Calcium 8.6 mg/dL (8.4-10.2); Carbon Dioxide 26 mmol/L (22-30); Chloride 108 mmol/L (98-107); Estimated CRCL calculation 84 ml/min; Estimated Glomerular Filt Rate > 60; Glucose 100 mg/dL (65-110); Potassium 3.4 mmol/L (3.4-5.0); Sodium 138 mmol/L (137-145)
--- NOTE | 2024-03-14 08:14 | PM.DS ---
DS: Admitting Diagnosis Discharge Date 03/14/2024 Admitting Diagnosis Cardiac arrest DS: Discharge Diagnosis Discharge Diagnosis (1) Acute ST elevation myocardial infarction (STEMI) due to occlusion of circumflex coronary artery: Code(s): I21.21 - ST elevation (STEMI) myocardial infarction involving left circumflex coronary artery Status: Acute Assessment and Plan: Underwent emergent cardiac catheterization 03/10 which showed the LCX was 100% occluded in the midportion with an acute thrombotic occlusion. S/p successful PCI using DELIA x 1. LV angiogram showed preserved LVEF. Echocardiogram showed overall preserved EF with hypokinesis of the basal and mid anterolateral wall, inferolateral wall, mild-moderate MR, mild TR Continue ASA 81mg once daily indefinitely. Continue Brilinta 90mg BID for at least 1 year. Continue Toprol XL Continue losartan 50mg daily High-intensity statin on held because of elevated LFT's - improving. Will resume today. Check CMP in one week. (2) Cardiac arrest with successful resuscitation: Code(s): I46.9 - Cardiac arrest, cause unspecified Status: Acute Assessment and Plan: In the setting of acute IN (3) Atrial fibrillation: Qualifiers: Atrial fibrillation type: unspecified Qualified Code(s): I48.91 - Unspecified atrial fibrillation Code(s): I48.91 - Unspecified atrial fibrillation Status: Acute Assessment and Plan: Back in sinus rhythm. Anticoagulation has been discontinued as to avoid triple therapy with DAPT and DOAC. (4) Aspiration pneumonia: Code(s): J69.0 - Pneumonitis due to inhalation of food and vomit Status: Acute Assessment and Plan: On abx per hospitalist (5) Elevated liver enzymes: Code(s): R74.8 - Abnormal levels of other serum enzymes Status: Acute Assessment and Plan: AST, ALT improving. Tbili 2.3 today. Check CMP in one week. Resuming statin today. DS: Summary Hospital Course Hospital Course: Presented 03/10/24 with chest pain and underwent emergent cardiac catheterization 03/10 which showed the LCX was 100% occluded in the midportion with an acute thrombotic occlusion. S/p successful PCI using DELIA x 1. LV angiogram showed preserved LVEF. Developed pneumonia secondary to aspiration and was treated for that. He had an otherwise uneventful hospitalization and did not have any recurrence of symptoms. Stable and appropriate for discharge at this time. Time Spent with Patient Time attestation: Total time spent providing and/or coordinating discharge services: Exam Const: General: comfortable, no acute distress, alert and awake Orientation/consciousness: patient oriented x3 HENMT: Head: normal to inspection Ears: external ear abnormal (laceration left ear) Mouth: Yes moist mucous membranes Eyes: Sclera: sclerae normal Neck: Neck: supple and no JVD Resp: Effort & Inspection: normal respiratory effort Auscultation: clear to auscultation bilaterally Cardio: Rate: regular rate Rhythm: regular rhythm and abnormal rhythm irregularly irregular GI: Auscultation: normal bowel sounds Skin: General skin exam: normal color Neuro: General: patient oriented x3 Extrem: General: normal to inspection Other: Arterial access site no hematoma, bleeding, bruising Psych: Appearance: grossly normal DS: Data Data Completed and Pending Labs on day of discharge: Labs from last 24 hours 03/14/24 03/13/24 03/13/24 04:00 17:21 11:41 WBC 6.4 RBC 3.59 L Hgb 11.0 L Hct 33.3 L MCV 92.8 MCH 30.6 MCHC 33.0 RDW 13.2 Plt Count 209 MPV 10.9 H Sodium 138 Potassium 3.4 Chloride 108 H Carbon Dioxide 26 Anion Gap 4 BUN 25 H D Creatinine 0.80 Estim Creat Clear Calc 84 Estimated GFR > 60 Glucose 100 POC Capillary Glucose 107 H 107 H Calcium 8.6 Magnesium 2.0 Total Bilirubin 2.3 H Indirect Biliru
[2024-03-14] MEDS: AMOXICILLIN/CLAVULANATE K 875-125 MG TAB 1 TABLET PO (08:40)
[2024-03-14] MEDS: FOLIC ACID 1 MG TABLET PO (08:41)
[2024-03-14] MEDS: METOPROLOL SUCCINATE EXT REL 25 MG TABCR PO (08:41)
[2024-03-14] MEDS: THIAMINE HCL 100 MG TABLET PO (08:43)
[2024-03-14] MEDS: TICAGRELOR 90 MG TABLET PO (08:44)
[2024-03-14] MEDS: ASPIRIN 81 MG CHEWABLE TABLET PO (08:44)
[2024-03-14] MEDS: ROSUVASTATIN 10 MG TABLET 20 MG PO (08:44)
[2024-03-14] MEDS: LOSARTAN POTASSIUM 50 MG TABLET PO (08:45)
[2024-03-14] MEDS: ENOXAPARIN 40 MG/0.4 ML SYRINGE SUB-Q (08:45)
[2024-03-14] MEDS: POTASSIUM CHLORIDE 20 MEQ ER TABLET 40 MEQ PO (08:59)
--- NOTE | 2024-03-14 12:04 | PM.IMPN ---
Progress Note: A&P Assessment and Plan (1) Acute ST elevation myocardial infarction (STEMI) due to occlusion of circumflex coronary artery: Code(s): I21.21 - ST elevation (STEMI) myocardial infarction involving left circumflex coronary artery Status: Acute Assessment and Plan: Patient brought in to the ED after having [id number]-ragmcweq cardiac VTach/VFib arrest and found to have STEMI CTA chest showing no aortic dissection or aneurysm. Troponin climbed to 36. EKG showing subtle ST elevation in the high lateral leads. Patient taken for emergency LHC showing acute 100% occlusion of the mid circumflex status post PCI and stent placement to the circumflex Started on DAPT, ARB and Toprol XL. Crestor started but currently held due to elevated LFTs Echo showing EF 55-60% with HK of the basal and mid anterolateral wall and the inferolateral wall. Having left medial shoulder blade pain - anginal equivalent but EKG normal. Suspect more liekly related to CPR, rib fx and PNA Continue current aggressive medical regiment. Plan home today. (2) Acute respiratory failure: Code(s): J96.00 - Acute respiratory failure, unspecified whether with hypoxia or hypercapnia Status: Acute Assessment and Plan: Acute Respiratory failure secondary to cardiac arrest and aspiration pneumonia requiring intubation in the ED. 6/ patient extubated after a successful weaning trial On abx for the aspiration. Weaned to room air. Encourage incentive spirometry use (3) Atrial fibrillation: Qualifiers: Atrial fibrillation type: unspecified Qualified Code(s): I48.91 - Unspecified atrial fibrillation Code(s): I48.91 - Unspecified atrial fibrillation Status: Acute Assessment and Plan: Patient was in AFib on admission. Normal EKG in January 2024. He was treated with Amiodarone and has converted to sinus rhythm this morning. Cardiology discontinued Amiodarone drip. Toprol XL restarted We continued anticoagulation for at least another 24 hours but he remains in NSR so therapeutic treatment stopped He was monitored on tele (4) Elevated liver enzymes: Code(s): R74.8 - Abnormal levels of other serum enzymes Status: Acute Assessment and Plan: Liver enzymes elevated on admission and AST peaked at 288 and ALT at 133. Viral hepatitis panel negative. Abd US normal without evidence of cirrhosis. No gallstones. Normal biliary ducts Likely secondary to shock liver from the arrest but consider related to chronic alcohol use Bili 2.3 but mostly indirect so consider [place]. Statin was held but can be resumed now Treated with thiamine and folate. He was monitored with CIWA. (5) Rib fracture: Code(s): S22.39XA - Fracture of one rib, unspecified side, initial encounter for closed fracture Status: Acute Assessment and Plan: CTA chest showing multiple nondisplaced bilateral anterior rib fractures. Related to the arrest Pain control with Lidoderm patch and p.r.n. [place] (6) Aspiration pneumonia: Code(s): J69.0 - Pneumonitis due to inhalation of food and vomit Status: Acute Assessment and Plan: CTA chest showing dependent lung airspace opacities concerning for aspiration. BCx NGTD MRSA screen negative. Unasyn started. WBC normal. He was having fevers but fever free past 48 hours CXR showing possible focal LLL airspace disease Changed to Augmentin to complete a course (7) Fever: Code(s): R50.9 - Fever, unspecified Status: Acute Assessment and Plan: Patient with fevers. He does not have the positive pressure from mechanical ventilation and pleuritic pain from the rib fractures so consider atelectasis. No UA drawn and CTA showing moderated left periuretheral stranding so consider occult UTI [place] fever related to atelectasis and PNA. Fevers resolved. Continue abx (8) Laceration of left ear: Qualifiers: Encounte
--- NOTE | 2024-03-28 13:13 | IVDEFINITY ---
Prior to administration of IV Definity the patient was educated on the risks and benefits of the imaging enhancing agent including potential adverse side effects. The patient verbalized understanding. Allergies were verified. No exclusion criteria were identified and at least one of the following inclusion criteria were met: 1) physician request, 2) patient technically difficult to image (per the [place] [employer] Echocardi[employer] guidelines of two or more segments not discernable within the apical view), or 3) questionable left ventricular function. ?
== END 2024-03-14 12:48 | disposition home or self-care (01) | DRG 321 ==
LOC: ANHED 20:38 → ANHCATHLAB 20:39 → ANHICU 22:12 → ANHIMU 03-12 19:16
PROVIDERS: Internal Medicine; Admitting Provider Specialist; Emergency Provider Emergency Medicine; PCP Internal Medicine; Visit Provider Nurse Practitioner
PROC: 4A023N7 Measurement of Cardiac Sampling and Pressure, Left Heart, Percutaneous Approach (ICD-10-PCS; CPT 93452; principal; 2024-03-10 20:00)
PROC: 027034Z Dilation of Coronary Artery, One Artery with Drug-eluting Intraluminal Device, Percutaneous Approach (ICD-10-PCS; 2024-03-10 20:00)
DX: I21.19 ST elevation (STEMI) myocardial infarction involving other coronary artery of inferior wall (principal); J69.0 Pneumonitis due to inhalation of food and vomit; J96.00 Acute respiratory failure, unspecified whether with hypoxia or hypercapnia; M96.A2 Fracture of one rib associated with chest compression and cardiopulmonary resuscitation; I21.21 ST elevation (STEMI) myocardial infarction involving left circumflex coronary artery; I25.10 Atherosclerotic heart disease of native coronary artery without angina pectoris; I10 Essential (primary) hypertension; I48.91 Unspecified atrial fibrillation; E87.6 Hypokalemia; S01.312A Laceration without foreign body of left ear, initial encounter; X58.XXXA Exposure to other specified factors, initial encounter; R74.8 Abnormal levels of other serum enzymes; F10.90 Alcohol use, unspecified, uncomplicated
CPT/HCPCS: 36415; 36600; 70450; 71045; 71275; 72125; 76705; 80048; 80053; 80061; 80074; 82805; 82948; 83036; 83735; 84443; 84484; 85025; 85027; 85610; 85730; 86850; 86900; 86901; 87040; 87641; 90715; 92950; 93005; 93306; 93458; 94002; 94003; 96365; 96366; 96367; 96368; 96375; 96376; 97161; 97165; 99285; A9270; C1725; C1769; C1874; C1887; C1894; C8929; C9113; C9606; J0282; J0295; J0330; J0583; J1644; J1650; J2250; J2405; J2704; J3010; J3475; J3480; J7030; J7040; J7120; L1830; Q9957; Q9967

== ENCOUNTER 2024-03-16 11:21 | Observation (INO) | payer OTHER, SELFPAY ==
[2024-03-16] VITALS (15 sets, daily range): BP systolic 91–124; BP diastolic 59–82; PULSE 68–94; RESP 16–20; TEMP 36.2–37.2; O2SAT 97–100; BMI 24.7
[2024-03-16 11:50] LABS: Basophils Absolute Auto 0.1 K/mm3 (0.0-0.1); Basophils Percent Auto 0.7 % (0.2-1.2); Eosinophils Absolute Auto 0.2 K/mm3 (0-0.3); Eosinophils Percent Auto 2.8 % (0-4.4); Hematocrit 24.3 % (42.0-52.0); Hemoglobin 8.3 g/dL (14.0-18.0); Immature Granulocyte Absolute 0.04 K/mm3 (0.00-0.031); Immature Granulocyte Percent A 0.6 % (0-0.5); Lymphocytes Absolute Auto 1.42 K/mm3 (0.9-3.2); Lymphocytes Percent Auto 21.3 % (18.3-44.2); Mean Corpuscular HGB Conc 34.2 g/dl (32-36); Mean Corpuscular Hemoglobin 31.7 pg (26-34); Mean Corpuscular Volume 92.7 fl (80-100); Mean Platelet Volume 10.7 fl (7.4-10.4); Monocytes Absolute Auto 0.7 K/mm3 (0.1-0.6); Monocytes Percent Auto 9.7 % (2.6-8.5); Neutrophils Absolute Auto 4.3 K/mm3 (1.3-6.7); Neutrophils Percent Auto 64.9 % (45.5-73.1); Platelet Count Result 259 k/mm3 (150-375); Red Blood Count 2.62 M/mm3 (4.6-6.20); Red Cell Distribution Width 13.5 % (11.5-14.5); White Blood Count 6.7 K/mm3 (4.5-10.0)
[2024-03-16 12:00] LABS: Alanine Aminotransferase 91 U/L (6-50); Albumin Level 3.5 g/dL (3.5-5.1); Alkaline Phosphatase 47 U/L (38-126); Anion Gap 6 mmol/L (4-12); Aspartate Amino Transferase 63 U/L (17-59); Bilirubin,Total 1.3 mg/dL (0.2-1.3); Blood Urea Nitrogen 22 mg/dL (9-20); Calcium 8.8 mg/dL (8.4-10.2); Carbon Dioxide 24 mmol/L (22-30); Chloride 109 mmol/L (98-107); Estimated CRCL calculation 84 ml/min; Estimated Glomerular Filt Rate > 60; Glucose 131 mg/dL (65-110); Potassium 2.9 mmol/L (3.4-5.0); Sodium 139 mmol/L (137-145)
[2024-03-16 12:02] LABS: Prothrombin Time 13.4 Seconds (11.1-14.7)
[2024-03-16 12:03] LABS: Partial Thromboplastin Time 24.2 Seconds (22.3-36.8)
[2024-03-16] MEDS: SODIUM CHLORIDE 0.9% IV 1,000 ML 999 ML IV CONT (12:11)
[2024-03-16] MEDS: PANTOPRAZOLE SODIUM IV 40 MG VIAL 80 MG IV PUSH (12:11)
--- NOTE | 2024-03-16 12:17 | ED.GIBLEED ---
HPI - GI Bleed General Chief complaint: GI Bleed Stated complaint: black stools Time Seen by Provider: 03/16/24 11:52 History of Present Illness HPI Narrative: Patient is a 63-year-old male who presents ER with concerns for GI bleed. Patient recently had out of hospital cardiac arrest for which he was resuscitated and had a stent placed in his left circumflex due to ST-elevation IN. He was started on Brilinta. He is discharged from the hospital 2 days ago. After leaving the hospital he began to have dark black diarrhea that has increased in frequency and volume. He has become dizzy with going from sitting to standing. No bright red blood. Denies fevers or chills or sweats. No falls. He has had some mild acid reflux symptoms over last couple days which are new. He is not on a PPI. Related Data Home Medications Medication Instructions Recorded Confirmed semaglutide 2 mg/dose (8 mg/3 mL) 2 mg subcut WEEKLY 03/10/24 03/16/24 subcutaneous pen injector Allergies Allergy/AdvReac Type Severity Reaction Status Date / Time No Known Allergies Allergy Verified 02/14/24 09:21 Review of Systems Review of Systems: All systems reviewed & are unremarkable except as noted in HPI and below Constitutional: Constitutional: Reports no additional constitutional complaints ENT: Reports system reviewed and no additional complaints, except as documented Cardiovascular: Cardiovascular: Reports no additional cardiovascular complaints Respiratory: Respiratory: Reports no additional respiratory complaints Gastrointestinal: Gastrointestinal: Reports no additional gastrointestinal complaints Comments: Dark black stool noted Neurologic: Reports system reviewed and no additional complaints, except as documented [facility] Past Medical History Medical History (Updated 03/16/24 @ 15:58 by Tammie Pena PA-C) Basal cell carcinoma (BCC) Coronary artery disease Hypertension Paroxysmal atrial fibrillation ST elevation myocardial infarction (STEMI) (03/10/24) Surgical History Surgical History (Updated 03/16/24 @ 15:52 by Tammie Pena PA-C) History of basal cell carcinoma excision History of cardiac catheterization (03/10/24) History of coronary artery stent placement (03/10/24) Drug-eluting stent to 100% occluded mid left circumflex per Dr. Ritter. History of tonsillectomy History of umbilical hernia repair (01/30/24) Robotic laparoscopic repair of 5 cm umbilical hernia with mesh. Family History Family History Father Heart disease Hypertension Afib Age older than 85 years Mother Age older than 85 years Social History Social History (Updated 03/16/24 @ 15:54 by Tammie Pena PA-C) Social History: Surrogate medical decision maker: Nataly Wahl, spouse. Code status: Full code. Smoking packs per day: 1 Smoking cigarettes per day: 20.0 Smoking status: Former smoker Tobacco type: cigarettes Second hand tobacco smoke exposure: No Smoking end date: 12/06/22 Alcohol intake: never Drinks per week: 30 Alcohol use details: Beer. Substance use: never Substance use type: does not use Do You Feel Safe in your Home?: Yes Lack of Transportation: No Lack of Food: Never True Current Housing: I Have Housing Concerned About Future Housing: No Difficulty Paying Gas/Electric Bills: No Difficulty Paying for Meds: No Currently Unemployed: No Education: High School Diploma/GED Difficulty w/ Childcare or Family Care: No Additional living arrangements comments: Lives with in [place]. 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 Spiritual care concerns: No Exam Narrative: GENERAL: Well-appearing, well-nourished, and in no acute distress. HEAD: Normocephalic, atraumatic. ENT: Mucous membran
[2024-03-16] MEDS: PANTOPRAZOLE SODIUM IV 80 MG in SODIUM CHLORIDE 0.9% IV 500 ML 50 MG IV CONT (12:35)
--- NOTE | 2024-03-16 15:35 | PM.IMHP ---
H&P: HPI History of Present Illness Date/Time: 03/16/24 16:00 Chief Complaint: Dark stools. Narrative: This is a very pleasant 63-year-old male with coronary artery disease, paroxysmal atrial fibrillation, and hypertension who presented to the emergency department for evaluation of dark stools. The patient provides the following history. He had an [id number] cardiac arrest on 03/10/2024 related to an acute lateral myocardial infarction status post drug-eluting stent to a 100% occluded midportion of the left circumflex. He was discharged home 2 days ago on dual antiplatelet therapy with aspirin and ticagrelor. Since returning home he had passed 5 dark, tarry stools and he has been getting a bit lightheaded with position changes. He has noticed discomfort in his esophagus when swallowing the last few days and he tells me it feels as though ?food is just sitting there.? Historically he has not had problems with this. In addition to dual antiplatelet therapy, he does take a meloxicam here or there for pain in his knee related to a torn meniscus but that is infrequent. He has no history of peptic ulcers. He denies epigastric and abdominal pain, bloating, belching, nausea, vomiting, and hematemesis. He also denies chest pain, shortness of breath, and sweats. In the ED: Orthostatic vital signs were positive with a drop in blood pressure from 115/82 to 91/62. The remainder of his vital signs have been stable. Labs were significant for hemoglobin of 8.3 (11.0 on day of discharge), potassium 2.9, BUN 22, creatinine 0.80, AST 63, ALT 91. He was started on a Protonix drip and is being admitted in this setting for further treatment and evaluation. Review of Systems Review of Systems: 12 systems were reviewed and are negative except for as per HPI. [facility] Past Medical History Medical History (Updated 03/16/24 @ 15:58 by Tammie Pena PA-C) Basal cell carcinoma (BCC) Coronary artery disease Hypertension Paroxysmal atrial fibrillation ST elevation myocardial infarction (STEMI) (03/10/24) Surgical History Surgical History (Updated 03/16/24 @ 15:52 by Tammie Pena PA-C) History of basal cell carcinoma excision History of cardiac catheterization (03/10/24) History of coronary artery stent placement (03/10/24) Drug-eluting stent to 100% occluded mid left circumflex per Dr. Ritter. History of tonsillectomy History of umbilical hernia repair (01/30/24) Robotic laparoscopic repair of 5 cm umbilical hernia with mesh. Family History Family History Father Heart disease Hypertension Afib Age older than 85 years Mother Age older than 85 years Social History Social History (Updated 03/16/24 @ 22:04 by Tammie Pena PA-C) Social History: Surrogate medical decision maker: Nataly Hollingsworthler, spouse. Code status: Full code. Smoking packs per day: 1 Smoking cigarettes per day: 20.0 Smoking status: Former smoker Tobacco type: cigarettes Second hand tobacco smoke exposure: No Smoking end date: 12/06/22 Alcohol intake: former Drinks per week: 30 Alcohol use details: Beer. Substance use: never Substance use type: does not use Do You Feel Safe in your Home?: Yes Lack of Transportation: No Lack of Food: Never True Current Housing: I Have Housing Concerned About Future Housing: No Difficulty Paying Gas/Electric Bills: No Difficulty Paying for Meds: No Currently Unemployed: No Education: High School Diploma/GED Difficulty w/ Childcare or Family Care: No Additional living arrangements comments: Lives with in [place]. 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 Spiritual care concerns: No Meds Home Medications and Allergies Home Medications Medication Instructions Recorded Confirmed Type semaglutide 2 m
--- NOTE | 2024-03-16 16:09 | ADMGEN ---
This patient, Houston Wahl, was admitted to IMU Room 200-01. Patient/family oriented to hospital policies and general routines including ID bracelet, bed and alarms, visiting hours, pain management, procedures, bathroom and other care routines, personal items, smoking policy, room service/diet, and visiting hours. Information on how to activate the Rapid Response Team has been discussed. Patient/Family are encouraged to report perceived risks to care and to ask questions if they do not understand what they are told or what they should do.
[2024-03-16] MEDS: SODIUM CHLORIDE 0.9% IV 1,000 ML 125 ML IV CONT ×2 (16:20→18:30)
[2024-03-16 16:54] LABS: Hematocrit 21.2 % (42.0-52.0)
[2024-03-16] MEDS: POTASSIUM CHLORIDE INJ 40 MEQ in SODIUM CHLORIDE 0.9% IV 500 ML 130 MEQ IVPB (18:29)
[2024-03-16] MEDS: SODIUM CHLORIDE 0.9% IV 250 ML 30 ML IV CONT (22:07)
[2024-03-17] VITALS (27 sets, daily range): BP systolic 107–155; BP diastolic 59–90; PULSE 63–88; RESP 16–20; TEMP 36.3–37.5; O2SAT 94–100
[2024-03-17] MEDS: AMOXICILLIN/CLAVULANATE K 875-125 MG TAB 1 TABLET PO ×3 (00:01→20:50)
[2024-03-17 04:41] LABS: Hemoglobin 7.7 g/dL (14.0-18.0); Mean Corpuscular HGB Conc 33.5 g/dl (32-36); Mean Corpuscular Hemoglobin 31.3 pg (26-34); Mean Corpuscular Volume 93.5 fl (80-100); Mean Platelet Volume 10.9 fl (7.4-10.4); Platelet Count Result 212 k/mm3 (150-375); Red Blood Count 2.46 M/mm3 (4.6-6.20); Red Cell Distribution Width 13.9 % (11.5-14.5); White Blood Count 6.6 K/mm3 (4.5-10.0)
[2024-03-17 04:45] LABS: Hematocrit 24.1 % (42.0-52.0); Hemoglobin 7.9 g/dL (14.0-18.0)
[2024-03-17 05:19] LABS: Alanine Aminotransferase 77 U/L (6-50); Alkaline Phosphatase 45 U/L (38-126); Anion Gap 5 mmol/L (4-12); Aspartate Amino Transferase 43 U/L (17-59); Bilirubin,Total 1.3 mg/dL (0.2-1.3); Blood Urea Nitrogen 13 mg/dL (9-20); Calcium 8.5 mg/dL (8.4-10.2); Carbon Dioxide 20 mmol/L (22-30); Chloride 113 mmol/L (98-107); Estimated CRCL calculation 84 ml/min; Estimated Glomerular Filt Rate > 60; Glucose 93 mg/dL (65-110); Magnesium 2.1 mg/dL (1.6-2.3); Potassium 3.7 mmol/L (3.4-5.0); Sodium 138 mmol/L (137-145)
--- NOTE | 2024-03-17 07:27 | WPDGICN ---
GI Consult Note Consult date/time: 03/17/24 07:27 Reason for consult: melena HPI: Houston Wahl is a 63 year old male [facility], LAT[facility] Past Medical History Medical History (Updated 03/16/24 @ 15:58 by Tammie Pena PA-C) Basal cell carcinoma (BCC) Coronary artery disease Hypertension Paroxysmal atrial fibrillation ST elevation myocardial infarction (STEMI) (03/10/24) Surgical History Surgical History (Updated 03/16/24 @ 15:52 by Tammie Pena PA-C) History of basal cell carcinoma excision History of cardiac catheterization (03/10/24) History of coronary artery stent placement (03/10/24) Drug-eluting stent to 100% occluded mid left circumflex per Dr. Ritter. History of tonsillectomy History of umbilical hernia repair (01/30/24) Robotic laparoscopic repair of 5 cm umbilical hernia with mesh. Family History Family History Father Heart disease Hypertension Afib Age older than 85 years Mother Age older than 85 years Social History Social History (Updated 03/16/24 @ 22:04 by Tammie Pena PA-C) Social History: Surrogate medical decision maker: Nataly Wahl, spouse. Code status: Full code. Smoking packs per day: 1 Smoking cigarettes per day: 20.0 Smoking status: Former smoker Tobacco type: cigarettes Second hand tobacco smoke exposure: No Smoking end date: 12/06/22 Alcohol intake: former Drinks per week: 30 Alcohol use details: Beer. Substance use: never Substance use type: does not use Do You Feel Safe in your Home?: Yes Lack of Transportation: No Lack of Food: Never True Current Housing: I Have Housing Concerned About Future Housing: No Difficulty Paying Gas/Electric Bills: No Difficulty Paying for Meds: No Currently Unemployed: No Education: High School Diploma/GED Difficulty w/ Childcare or Family Care: No Additional living arrangements comments: Lives with in [place]. 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 Spiritual care concerns: No Meds Home Medications and Allergies Home Medications Medication Instructions Recorded Confirmed Type semaglutide 2 mg/dose (8 mg/3 mL) 2 mg subcut WEEKLY 03/10/24 03/16/24 History subcutaneous pen injector aspirin 81 mg chewable tablet 81 mg PO DAILY@0800 30 days #30 03/13/24 03/16/24 Rx (Children's Aspirin) tabs losartan 25 mg tablet 25 mg PO DAILY 30 days #30 tabs 03/13/24 03/16/24 Rx metoprolol succinate 25 mg 25 mg PO QAM 30 days #30 tabs 03/13/24 03/16/24 Rx tablet,extended release 24 hr (Toprol XL) rosuvastatin 10 mg tablet (Crestor) 20 mg PO DAILY 30 days #60 tabs 03/13/24 03/16/24 Rx ticagrelor 90 mg tablet (Brilinta) 90 mg PO Q12HR #60 tabs 03/13/24 03/16/24 Rx amoxicillin 875 mg-potassium 1 tablet PO Q12H #7 tabs 03/14/24 03/16/24 Rx clavulanate 125 mg tablet Allergies Allergy/AdvReac Type Severity Reaction Status Date / Time No Known Allergies Allergy Verified 02/14/24 09:21 Vital Signs Vital Signs - 24 hr 03/16/24 11:23 03/16/24 11:43 03/16/24 11:45 Temperature 97.1 F L Pulse Rate 84 78 84 Respiratory Rate 20 Blood Pressure 124/73 113/69 115/82 Pulse Oximetry 99 Oxygen Delivery Room Air 03/16/24 11:46 03/16/24 12:35 03/16/24 13:21 Temperature Pulse Rate 94 70 70 Respiratory Rate 18 17 Blood Pressure 91/62 L 102/66 107/66 Pulse Oximetry 100 99 Oxygen Delivery 03/16/24 14:59 03/16/24 16:00 03/16/24 16:00 Temperature 97.8 F 98.1 F Pulse Rate 73 68 68 Respiratory Rate 18 16 Blood Pressure 118/76 117/66 Pulse Oximetry 98 100 Oxygen Delivery 03/16/24 20:19 03/16/24 21:56 03/16/24 20:00 Temperature 99 F 98.8 F Pulse Rate 75 81 78 Respiratory Rate 16 18 Blood Pressure 116/67 124/66 Pulse Oximetry 97 98 Oxygen Delivery 03/16/24
[2024-03-17] MEDS: LACTATED RINGERS 1,000 ML 150 ML IV CONT (10:32)
[2024-03-17 10:35] LABS: Hematocrit 23.9 % (42.0-52.0); Hemoglobin 8.1 g/dL (14.0-18.0)
--- NOTE | 2024-03-17 11:33 | WPDGICN ---
Assessment and Plan Assessment and plan (1) GI bleed: Code(s): K92.2 - Gastrointestinal hemorrhage, unspecified Status: Acute Assessment and Plan: will proceed with urgent EGD, recently started on dual antiplalet therapy on iv protonix more recommendations after scope can not stop brilinta since maricel just had SD that required stent (2) Acute blood loss anemia: Code(s): D62 - Acute posthemorrhagic anemia Status: Acute Assessment and Plan: monitor for more signs of bleeding keep hgb>7 (3) Melena: Code(s): K92.1 - Melena Status: Acute Assessment and Plan: here with upper gib, egd now (4) Orthostatic hypotension: Code(s): I95.1 - Orthostatic hypotension Status: Acute Assessment and Plan: stable now (5) Coronary artery disease: Code(s): I25.10 - Atherosclerotic heart disease of [place] coronary artery without angina pectoris Status: Acute (6) Blood thinned due to long-term anticoagulant use: Code(s): Z79.01 - hospital 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 He just had an [id number] cardiac arrest on 03/10/2024 related to an acute lateral myocardial infarction status post drug-eluting stent to a 100% occluded midportion of the left circumflex and was discharged home just 3 ago on dual antiplatelet therapy with aspirin and ticagrelor. He had at least 5 dark tarry stools and was lightheaded, also had discomfort in epigastric. Never had EGD and denies previous GIB. He was orthostatic in the ER, Labs showed lower hemoglobin of 8.3 then down to 7 (11.0 on day of discharge), potassium 2.9, BUN 22, creatinine 0.80, AST 63, ALT 91. Started on iv protonix and he is ready to have EGD. Review of Systems Constitutional: Constitutional: Denies chills Eyes: Eyes: Denies blurry vision ENT: Reports Normal hearing present Cardiovascular: Cardiovascular: Reports lightheadedness Respiratory: Respiratory: Denies cough Gastrointestinal: Gastrointestinal: Reports melena Genitourinary: Genitourinary: Denies hematuria Musculoskeletal: Musculoskeletal: Denies neck pain Integumentary/Breasts: Skin/Breast: Denies rash Neurologic: Denies Abnormal speech present Psychiatric: Psychiatric: Denies behavioral changes [facility] Past Medical History Medical History (Updated 03/17/24 @ 11:37 by Ignacio Meek MD) Basal cell carcinoma (BCC) Blood thinned due to long-term anticoagulant use Coronary artery disease Hypertension Melena Paroxysmal atrial fibrillation ST elevation myocardial infarction (STEMI) (03/10/24) Surgical History Surgical History (Updated 03/16/24 @ 15:52 by Tammie Pena PA-C) History of basal cell carcinoma excision History of cardiac catheterization (03/10/24) History of coronary artery stent placement (03/10/24) Drug-eluting stent to 100% occluded mid left circumflex per Dr. Ritter. History of tonsillectomy History of umbilical hernia repair (01/30/24) Robotic laparoscopic repair of 5 cm umbilical hernia with mesh. Family History Family History Father Heart disease Hypertension Afib Age older than 85 years Mother Age older than 85 years Social History Social History (Updated 03/16/24 @ 22:04 by Tammie Pena PA-C) Social History: Surrogate medical decision maker: Nataly Wahl, spouse. Code status: Full code. Smoking packs per day: 1 Smoking cigarettes per day: 20.0 Smoking status: Former smoker Tobacco type: cigarettes Second hand tobacco smoke exposure: No Smoking end date: 12/06/22 Alcohol intake:
--- NOTE | 2024-03-17 11:37 | WPDANESEPPF ---
Anes - Initial Pre Proc Eval Procedure: Operation Date: 03/17/24 15:00 Proposed Procedures p Esophagogastroduodenoscopy - Ignacio Meek MD Date/Time: 03/17/24 11:37 Surgeon: Luis Daniel Mukherjee MD Pre Op Diagnosis: Upper GI Bleed Patient Data Age: 63 Gender: M Height: 1.75 m Weight: 76 kg Last Vital Signs Temp 97.4 F L 03/17/24 10:26 Pulse 74 03/17/24 10:26 Resp 18 03/17/24 10:26 BP 138/90 03/17/24 10:26 Pulse Ox 99 03/17/24 10:26 O2 Del Method Room Air 03/17/24 10:26 Allergies Allergy/AdvReac Type Severity Reaction Status Date / Time No Known Allergies Allergy Verified 03/17/24 10:34 Home Medications Medication Instructions Recorded Confirmed Type semaglutide 2 mg/dose (8 mg/3 mL) 2 mg subcut WEEKLY 03/10/24 03/17/24 History subcutaneous pen injector aspirin 81 mg chewable tablet 81 mg PO DAILY@0800 30 days #30 03/13/24 03/17/24 Rx (Children's Aspirin) tabs losartan 25 mg tablet 25 mg PO DAILY 30 days #30 tabs 03/13/24 03/17/24 Rx metoprolol succinate 25 mg 25 mg PO QAM 30 days #30 tabs 03/13/24 03/17/24 Rx tablet,extended release 24 hr (Toprol XL) rosuvastatin 10 mg tablet (Crestor) 20 mg PO DAILY 30 days #60 tabs 03/13/24 03/17/24 Rx ticagrelor 90 mg tablet (Brilinta) 90 mg PO Q12HR #60 tabs 03/13/24 03/17/24 Rx amoxicillin 875 mg-potassium 1 tablet PO Q12H #7 tabs 03/14/24 03/17/24 Rx clavulanate 125 mg tablet Laboratory Tests 03/16/24 03/16/24 03/17/24 11:43 16:49 03:49 WBC 6.7 K/mm3 6.6 K/mm3 (4.5-10.0) (4.5-10.0) RBC 2.62 L M/mm3 2.46 L M/mm3 (4.6-6.20) (4.6-6.20) Hgb 8.3 L g/dL 7.0 L g/dL 7.9 L g/dL (14.0-18.0) (14.0-18.0) (14.0-18.0) Hct 24.3 L % 21.2 L % (42.0-52.0) (42.0-52.0) MCV 92.7 fl (80-100) MCH 31.7 pg (26-34) MCHC 34.2 g/dl (32-36) RDW 13.5 % (11.5-14.5) Plt Count 259 k/mm3 (150-375) MPV 10.7 H fl (7.4-10.4) Immature Gran % (Auto) 0.6 H % (0-0.5) Neut % (Auto) 64.9 % (45.5-73.1) Lymph % (Auto) 21.3 % (18.3-44.2) [place] % (Auto) 9.7 H % (2.6-8.5) Eos % (Auto) 2.8 % (0-4.4) Baso % (Auto) 0.7 % (0.2-1.2) Lymph # (Auto) 1.42 K/mm3 (0.9-3.2) [place] # (Auto) 0.7 H K/mm3 (0.1-0.6) Eos # (Auto) 0.2 K/mm3 (0-0.3) Baso # (Auto) 0.1 K/mm3 (0.0-0.1) Abs Immat Gran (auto) 0.04 H K/mm3 (0.00-0.031) Absolute Neuts (auto) 4.3 K/mm3 (1.3-6.7) Absolute Nucleated RBC 0.000 K/mm3 (0.0-0.012) Nucleated RBC % 0.0 % (0.0-0.2) PT 13.4 Seconds (11.1-14.7) INR 1.0 APTT 24.2 Seconds (22.3-36.8) Sodium 139 mmol/L (137-145) Potassium 2.9 L mmol/L (3.4-5.0) Chloride 109 H mmol/L (98-107) Carbon Dioxide 24 mmol/L (22-30) Anion Gap 6 mmol/L (4-12) BUN 22 H mg/dL (9-20) Creatinine 0.80 mg/dL (0.7-1.3) Estim Creat Clear Calc 84 ml/min Estimated GFR > 60 (59 - ) Glucose 131 H mg/dL (65-110) Calcium 8.8 mg/dL (8.4-10.2) Magnesium Total Bilirubin 1.3 mg/dL (0.2-1.3) AST 63 H U/L (17-59) ALT 91 H U/L (6-50) Alkaline Phosphatase 47 U/L (38-126) Total Protein 6.0 L g/dL (6.3-8.2) Albumin 3.5 g/dL (3.5-5.1) Blood Type O Positive Antibody Screen Negative Crossmatch See Detail 03/17/24 03/17/24 03/17/24 03:49 03:49 09:59 WBC RBC Hgb 7.7 L g/dL 8.1 L g/dL (14.0-18.0) (14.0-18.0) Hct 24.1 L % 23.0 L % 23.9 L % (42.0-52.0) (42.0-52.0) (42.0-52.0) MCV 93.5 fl (80-100) MCH 31.3 pg (26-34) MCHC 33.5 g/dl (32-36) R
--- NOTE | 2024-03-17 12:40 | PM.IMPN ---
Progress Note: A&P Assessment and Plan (1) GI bleed: Code(s): K92.2 - Gastrointestinal hemorrhage, unspecified Status: Acute (2) Acute blood loss anemia: Code(s): D62 - Acute posthemorrhagic anemia Status: Acute (3) Hypokalemia: Code(s): E87.6 - Hypokalemia Status: Acute (4) Orthostatic hypotension: Code(s): I95.1 - Orthostatic hypotension Status: Acute (5) Elevated liver enzymes: Code(s): R74.8 - Abnormal levels of other serum enzymes Status: Acute (6) Hypertension: Qualifiers: Hypertension type: unspecified Qualified Code(s): I10 - Essential (primary) hypertension Code(s): I10 - Essential (primary) hypertension Status: Chronic (7) Coronary artery disease: Code(s): I25.10 - Atherosclerotic heart disease of [place] coronary artery without angina pectoris Status: Acute (8) Paroxysmal atrial fibrillation: Code(s): I48.0 - Paroxysmal atrial fibrillation Status: Acute Plan The patient presented to the emergency department for evaluation of dark stools several days after being started on dual antiplatelet therapy following drug-eluting stent to the midcircumflex. Hemoglobin has dropped more than half compared to labs obtained 1 week ago. He is transfused 1 unit of packed red blood cells and hemoglobin and hematocrit will be monitored closely. GI was consulted and is planned for EGD today. [place] has been consulted and plan to switch Brilinta to Plavix. Currently dpt on hold until further determination with EGD. Hypokalemia replace and monitor Recent coronary artery disease status post stent mid circumflex after presentation with ST-elevation [place] on 03/14/2024. Cardiology consulted DVT prophylaxis SCD Code status full code Subjective Date/time seen: 03/17/24 12:40 Interval history: No overnight events. Feeling better. Transfuse 1 unit of PRBC. Aspirin and Brilinta on hold Review of Systems Review of Systems: All systems reviewed & are unremarkable except as noted in HPI and below Exam Narrative: General: Well-developed, nontoxic-appearing male sitting up in bed in no acute distress. HEENT: PERRL, EOMI. Sclera anicteric. Oral mucosa moist. Neck: Supple. Respiratory: Lungs are clear to auscultation bilaterally. Cardiovascular: Regular rate and rhythm with S1-S2. Gastrointestinal: Abdomen is soft, nontender, and nondistended with positive bowel sounds. Skin: Warm and dry. No rash or lesions on limited exam. Extremities: No cyanosis, clubbing, or edema. Radial and pedal pulses intact. Neurological: Alert. Cranial nerves 2-12 are grossly intact. No gross focal deficits to casual conversation. Psychiatric: Pleasant and cooperative with normal mood and affect. Judgment and insight intact. Objective Data Vital Signs Vital Signs: Vital Signs - 24 hr 03/16/24 13:21 03/16/24 14:59 03/16/24 16:00 Temperature 97.8 F 98.1 F Pulse Rate 70 73 68 Respiratory Rate 17 18 16 Blood Pressure 107/66 118/76 117/66 Pulse Oximetry 99 98 100 Oxygen Delivery 03/16/24 16:00 03/16/24 20:19 03/16/24 21:56 Temperature 99 F 98.8 F Pulse Rate 68 75 81 Respiratory Rate 16 18 Blood Pressure 116/67 124/66 Pulse Oximetry 97 98 Oxygen Delivery 03/16/24 20:00 03/16/24 20:00 03/16/24 20:00 Temperature 98.8 F Pulse Rate 78 81 80 Respiratory Rate 18 18 Blood Pressure 124/66 Pulse Oximetry 98 98 Oxygen Delivery Room Air 03/16/24 22:16 03/16/24 22:00 03/16/24 23:11 Temperature 98.0 F Pulse Rate 76 76 Respiratory Rate 18 Blood Pressure 111/59 L 111/62 Pulse Oximetry 97 Oxygen Delivery 03/16/24 23:16 03/17/24 00:16 03/17/24 00:00 Temperature 99 F 99 F Pulse Rate 74 75 72 Respiratory Rate 18 18 Blood Pressure 111/62 114/62 Pulse Oximetry 97 98 Oxygen Delivery 03/17/24 00:00 03/17/24 01:15 03/17/24 02:00 Temperature 98.6 F Pulse Rate 72 7
[2024-03-17] MEDS: PANTOPRAZOLE SODIUM IV 40 MG VIAL IV PUSH ×2 (14:19→20:50)
[2024-03-17] MEDS: ASPIRIN 81 MG CHEWABLE TABLET PO (14:19)
[2024-03-17] MEDS: ROSUVASTATIN 10 MG TABLET 20 MG PO (14:19)
[2024-03-17] MEDS: METOPROLOL SUCCINATE EXT REL 25 MG TABCR PO (14:19)
--- NOTE | 2024-03-17 15:07 | PM.CNCAR ---
Assessment and Plan Assessment and plan (1) Melena: Code(s): K92.1 - Melena Status: Acute (2) Acute ST elevation myocardial infarction (STEMI) due to occlusion of circumflex coronary artery: Code(s): I21.21 - ST elevation (STEMI) myocardial infarction involving left circumflex coronary artery Status: Acute Plan This is a 63-year-old man with recently diagnosed coronary disease presenting dramatically last week with out of hospital cardiac arrest, underwent emergency PCI with drug-eluting stent deployment to the mid circumflex. In the acute setting of his infarction he was also found to be in atrial fib which was new and resolve with an amiodarone infusion. He re enters the hospital now with GI bleeding related to gastritis as well as a small gastric ulcer. Stomach was not actively bleeding at the time of endoscopy. I will continue his aspirin and resume anti-platelet therapy with clopidogrel tomorrow. He will be continued on beta-mohamud and his statin as well. Will follow with you during this hospitalization hopefully he will tolerate the combination of aspirin and clopidogrel. His PPI therapy will be directed by the primary team and he will of course be discharged on this treatment at the time of hospital discharge. Mak Ritter MD [facility] History of Present Illness History of Present Illness Consult date/time: 03/17/24 15:07 Reason For Visit: Upper GI Bleed Narrative: This is a 63-year-old man who I know from a acute myocardial infarction from last week who is readmitted last night with upper GI bleeding. He was discharged from the hospital the last week on Sunday and starting Sunday night Sunday and Sunday he noticed dark tarry stools and Sunday and Sunday he started to develop symptoms of lightheadedness concerning for hypotension. He states his daughter is a nurse and advised him on Sunday to finally come back to the hospital for evaluation. He was found to have melanotic stool and a significant drop in his hemoglobin to 7 g. Baseline hemoglobin last week was 13.5. He was not having any abdominal pain or any ischemic chest pain. He came to the hospital last Sunday after having an acute myocardial infarction marked by cardiac arrest from which he was resuscitated at home with an AED. He was brought to the hospital and brought to the cardiac medical laboratory technical officer emergently where he was found to have occlusion of his mid circumflex which was treated successfully with emergency PCI and stenting. He was also in atrial fibrillation when he presented which was acute and was resolved with intravenous amiodarone treatment. He was kept in the hospital the remainder of weekend as mentioned above discharged on Sunday. He was of course on dual anti-platelet therapy with aspirin and Brilinta. He underwent endoscopic evaluation today which demonstrated gastric ulcer as well as some gastritis. He has been started on proton pump inhibitor therapy for that. He feels well at this time and offers no other complaints. Review of Systems Constitutional: Constitutional: Reports no additional constitutional complaints Eyes: Eyes: Reports no additional eye complaints ENT: Reports system reviewed and no additional complaints, except as documented Cardiovascular: Cardiovascular: Reports no additional cardiovascular complaints Respiratory: Respiratory: Reports no additional respiratory complaints Gastrointestinal: Gastrointestinal: Reports as per HPI and Reports melena Genitourinary: Genitourinary: Reports no additional male genitourinary complaints Musculoskeletal: Musculoskeletal: Reports no additional musculoskeletal complaints Integumentary/Breasts: Skin/Breast: Reports system reviewed and no additional complaints, except as docu Neurologic: Reports system reviewed and no additional complaints, except as documented Endocrine: Endocrine: Reports no additional endocrine complaints Hematologic/Lymphatic: Hematologic/Lym
[2024-03-17 16:27] LABS: Hematocrit 25.5 % (42.0-52.0); Hemoglobin 8.6 g/dL (14.0-18.0)
[2024-03-18] VITALS (11 sets, daily range): BP systolic 113–119; BP diastolic 58–71; PULSE 64–74; RESP 14–20; TEMP 36.4–36.7; O2SAT 94–100
[2024-03-18 05:03] LABS: Basophils Absolute Auto 0.1 K/mm3 (0.0-0.1); Basophils Percent Auto 0.9 % (0.2-1.2); Eosinophils Absolute Auto 0.6 K/mm3 (0-0.3); Eosinophils Percent Auto 7.1 % (0-4.4); Hematocrit 25.7 % (42.0-52.0); Hemoglobin 8.5 g/dL (14.0-18.0); Immature Granulocyte Absolute 0.04 K/mm3 (0.00-0.031); Immature Granulocyte Percent A 0.5 % (0-0.5); Lymphocytes Absolute Auto 2.26 K/mm3 (0.9-3.2); Lymphocytes Percent Auto 27.8 % (18.3-44.2); Mean Corpuscular HGB Conc 33.1 g/dl (32-36); Mean Corpuscular Hemoglobin 31.3 pg (26-34); Mean Corpuscular Volume 94.5 fl (80-100); Monocytes Absolute Auto 0.7 K/mm3 (0.1-0.6); Monocytes Percent Auto 8.2 % (2.6-8.5); Neutrophils Absolute Auto 4.5 K/mm3 (1.3-6.7); Neutrophils Percent Auto 55.5 % (45.5-73.1); Platelet Count Result 266 k/mm3 (150-375); Red Blood Count 2.72 M/mm3 (4.6-6.20); Red Cell Distribution Width 14.6 % (11.5-14.5); White Blood Count 8.1 K/mm3 (4.5-10.0)
[2024-03-18 05:12] LABS: Alanine Aminotransferase 65 U/L (6-50); Albumin Level 3.4 g/dL (3.5-5.1); Alkaline Phosphatase 57 U/L (38-126); Anion Gap 7 mmol/L (4-12); Aspartate Amino Transferase 35 U/L (17-59); Bilirubin,Total 1.2 mg/dL (0.2-1.3); Blood Urea Nitrogen 13 mg/dL (9-20); Calcium 8.8 mg/dL (8.4-10.2); Carbon Dioxide 23 mmol/L (22-30); Chloride 109 mmol/L (98-107); Estimated CRCL calculation 76 ml/min; Estimated Glomerular Filt Rate > 60; Glucose 97 mg/dL (65-110); Magnesium 2.2 mg/dL (1.6-2.3); Potassium 3.6 mmol/L (3.4-5.0); Sodium 139 mmol/L (137-145)
[2024-03-18] MEDS: ROSUVASTATIN 10 MG TABLET 20 MG PO (09:10)
[2024-03-18] MEDS: METOPROLOL SUCCINATE EXT REL 25 MG TABCR PO (09:11)
[2024-03-18] MEDS: ASPIRIN 81 MG CHEWABLE TABLET PO (09:11)
[2024-03-18] MEDS: CLOPIDOGREL BISULFATE 75 MG TABLET PO (09:11)
[2024-03-18] MEDS: PANTOPRAZOLE SODIUM IV 40 MG VIAL IV PUSH (09:12)
[2024-03-18] MEDS: AMOXICILLIN/CLAVULANATE K 875-125 MG TAB 1 TABLET PO (09:13)
--- NOTE | 2024-03-18 09:25 | PM.PNCARD ---
Progress Note: A&P Assessment and Plan (1) Melena: Code(s): K92.1 - Melena Status: Acute (2) Coronary artery disease: Code(s): I25.10 - Atherosclerotic heart disease of [place] coronary artery without angina pectoris Status: Acute Plan This is a 63-year-old man with recently diagnosed coronary disease presenting dramatically last week with out of hospital cardiac arrest, underwent emergency PCI with drug-eluting stent deployment to the mid circumflex. In the acute setting of his infarction he was also found to be in atrial fibrillation which was new and resolved with an amiodarone infusion. He re enters the hospital now with GI bleeding related to gastritis as well as a small gastric ulcer. Stomach was not actively bleeding at the time of endoscopy. I will continue his aspirin and resume anti-platelet therapy with clopidogrel tomorrow. He will be continued on beta-mohamud and his statin as well. Continue with ASA and Plavix. Patient will need to be on DAPT for at least 1 year from the time of his PCI. Okay to discharge home from my standpoint. Subjective Date/time seen: 03/18/24 09:25 Interval history: Reason for visit: GI bleed on DAPT HPI: This is a 63-year-old man who I know from a acute myocardial infarction from last week who is readmitted last night with upper GI bleeding. He was discharged from the hospital the last week on Sunday and starting Sunday night Sunday and Sunday he noticed dark tarry stools and Sunday and Sunday he started to develop symptoms of lightheadedness concerning for hypotension. He states his daughter is a nurse and advised him on Sunday to finally come back to the hospital for evaluation. He was found to have melanotic stool and a significant drop in his hemoglobin to 7 g. Baseline hemoglobin last week was 13.5. He was not having any abdominal pain or any ischemic chest pain. He came to the hospital last Sunday after having an acute myocardial infarction marked by cardiac arrest from which he was resuscitated at home with an AED. He was brought to the hospital and brought to the cardiac slab polisher emergently where he was found to have occlusion of his mid circumflex which was treated successfully with emergency PCI and stenting. He was also in atrial fibrillation when he presented which was acute and was resolved with intravenous amiodarone treatment. He was kept in the hospital the remainder of weekend as mentioned above discharged on Sunday. He was of course on dual anti-platelet therapy with aspirin and Brilinta. He underwent endoscopic evaluation today which demonstrated gastric ulcer as well as some gastritis. He has been started on proton pump inhibitor therapy for that. He feels well at this time and offers no other complaints. Date of service 03/18: Feeling well today. Review of Systems Review of Systems: All systems reviewed & are unremarkable except as noted in HPI and below (HPI) Exam Const: General: comfortable and no acute distress HENMT: Mouth: Yes moist mucous membranes Eyes: General: appearance normal, both eyes and all related structures Sclera: sclerae normal Neck: Neck: supple Resp: Effort & Inspection: normal respiratory effort Cardio: Rate: regular rate Rhythm: regular rhythm Skin: General skin exam: normal color Neuro: Speech: normal speech Psych: Mental Status: mental status grossly normal Affect: normal affect Objective Data Vital Signs Vital Signs: Vital Signs - 24 hr 03/17/24 10:26 03/17/24 11:58 03/17/24 12:08 Temperature 36.3 C L Pulse Rate 74 71 70 Respiratory Rate 18 20 20 Blood Pressure 138/90 108/64 115/67 Pulse Oximetry 99 100 100 Oxygen Delivery Room Air Room Air Room Air Fraction of Inspired Oxygen 03/17/24 12:18 03/17/24 10:00 03/17/24 12:00 Temperature Pulse Rate 68 70 Respiratory Rate 17 Blood Pressure 115/72 Pulse Oximetry 100 Oxygen Delivery Room Air Room Air Fraction of In
--- NOTE | 2024-03-18 11:00 | WPDANESPN ---
Anes - Prog Note Post-Op Date/Time: 03/18/24 11:00 Cardiovascular status: normal Respiratory status: normal Airway patency: baseline Mental status: baseline Post-Op hydration status: normal Vital Signs: Last Vital Signs Temp 36.7 C 03/18/24 07:42 Pulse 64 03/18/24 10:00 Resp 14 03/18/24 07:56 BP 119/58 L 03/18/24 07:42 Pulse Ox 96 03/18/24 08:55 O2 Del Method Room Air 03/18/24 08:55 FiO2 21 03/18/24 08:55 Pain Score (VAS): 0 I/O: Intake & Output 03/17/24 03/18/24 03/18/24 23:59 07:59 15:59 Intake Total 1320 240 Balance 1320 240 Laboratory Tests 03/18/24 04:08 03/18/24 04:08 03/17/24 03/18/24 16:12 04:08 WBC 8.1 RBC 2.72 L Hgb 8.6 L 8.5 L Hct 25.5 L 25.7 L MCV 94.5 MCH 31.3 MCHC 33.1 RDW 14.6 H Plt Count 266 MPV 11.0 H Immature Gran % (Auto) 0.5 Neut % (Auto) 55.5 Lymph % (Auto) 27.8 [place] % (Auto) 8.2 Eos % (Auto) 7.1 H Baso % (Auto) 0.9 Lymph # (Auto) 2.26 [place] # (Auto) 0.7 H Eos # (Auto) 0.6 H Baso # (Auto) 0.1 Abs Immat Gran (auto) 0.04 H Absolute Neuts (auto) 4.5 Absolute Nucleated RBC 0.000 Nucleated RBC % 0.0 Sodium 139 Potassium 3.6 Chloride 109 H Carbon Dioxide 23 Anion Gap 7 BUN 13 Creatinine 0.90 Estim Creat Clear Calc 76 Estimated GFR > 60 Glucose 97 Calcium 8.8 Magnesium 2.2 Total Bilirubin 1.2 AST 35 ALT 65 H Alkaline Phosphatase 57 Total Protein 6.0 L Albumin 3.4 L Post-procedural complaints: none Patient Feedback: Patient satisfied with anesthetic care.
--- NOTE | 2024-03-18 11:02 | PM.DS ---
DS: Admitting Diagnosis Discharge Date 03/18/24 Admitting Diagnosis GI Bled DS: Discharge Diagnosis Discharge Diagnosis (1) Melena: Code(s): K92.1 - Melena Status: Acute (2) Orthostatic hypotension: Code(s): I95.1 - Orthostatic hypotension Status: Acute DS: Summary Hospital Course Reason for hospitalization: GI Bleed Hospital Course: 63-year-old male with coronary artery disease, paroxysmal atrial fibrillation, and hypertension who presented to the emergency department for evaluation of dark stools. The patient provides the following history. He had an [id number]-[id number] cardiac arrest on 03/10/2024 related to an acute lateral myocardial infarction status post drug-eluting stent to a 100% occluded midportion of the left circumflex. He was discharged home 2 days ago on dual antiplatelet therapy with aspirin and ticagrelor. Since returning home he had passed 5 dark, tarry stools. GI was consulted, underwent EGD which showed gastritis along with ulcer which was not bleeding. GI was okay to resume antiplatelet agent. Cardiology was consulted, continued with aspirin, added Plavix instead of Brilinta. Patient was started on pantoprazole b.i.d.. Discharged home in stable condition. Status at Discharge Functional status at discharge: independent ambulation Overall status at discharge: patient is back to baseline Time Spent with Patient Time attestation: Total time spent providing and/or coordinating discharge services: Time spent: Greater than 30 minutes Exam Narrative: General: Well-developed, nontoxic-appearing male sitting up in bed in no acute distress. HEENT: PERRL, EOMI. Sclera anicteric. Oral mucosa moist. Neck: Supple. Respiratory: Lungs are clear to auscultation bilaterally. Cardiovascular: Regular rate and rhythm with S1-S2. Gastrointestinal: Abdomen is soft, nontender, and nondistended with positive bowel sounds. Skin: Warm and dry. No rash or lesions on limited exam. Extremities: No cyanosis, clubbing, or edema. Radial and pedal pulses intact. Neurological: Alert. Cranial nerves 2-12 are grossly intact. No gross focal deficits to casual conversation. Psychiatric: Pleasant and cooperative with normal mood and affect. Judgment and insight intact. DS: Data Data Completed and Pending Completed studies during hospitalization: Pending at discharge 03/17/24 11:55 Surgical [PTH] Routine Labs on day of discharge: Labs from last 24 hours 03/18/24 03/17/24 04:08 16:12 WBC 8.1 RBC 2.72 L Hgb 8.5 L 8.6 L Hct 25.7 L 25.5 L MCV 94.5 MCH 31.3 MCHC 33.1 RDW 14.6 H Plt Count 266 MPV 11.0 H Immature Gran % (Auto) 0.5 Neut % (Auto) 55.5 Lymph % (Auto) 27.8 Powell % (Auto) 8.2 Eos % (Auto) 7.1 H Baso % (Auto) 0.9 Lymph # (Auto) 2.26 Powell # (Auto) 0.7 H Eos # (Auto) 0.6 H Baso # (Auto) 0.1 Abs Immat Gran (auto) 0.04 H Absolute Neuts (auto) 4.5 Absolute Nucleated RBC 0.000 Nucleated RBC % 0.0 Sodium 139 Potassium 3.6 Chloride 109 H Carbon Dioxide 23 Anion Gap 7 BUN 13 Creatinine 0.90 Estim Creat Clear Calc 76 Estimated GFR > 60 Glucose 97 Calcium 8.8 Magnesium 2.2 Total Bilirubin 1.2 AST 35 ALT 65 H Alkaline Phosphatase 57 Total Protein 6.0 L Albumin 3.4 L Discharge Plan Discharge Attending physician on discharge: Maria Del Rosario Tom Consulting providers: Ignacio Meek; Mak Ritter Discharging Clinician: Maria Del Rosario Tom Anticipated Discharge Date/Time: 03/18/24 10:58 Patient Disposition: Home, Self-Care Activity: as tolerated Diet: heart healthy Patient Instructions: Antibiotic Form, Clopidogrel (By mouth) Stand Alone Forms: General Discharge Information Follow-up/Referrals: Mak Ritter MD [Physician] - 3 Weeks Olivia,Mak Boone MD [Primary Care Provider] - 2 Weeks Ignacio Meek MD [Physician] - 3 Weeks
== END 2024-03-18 12:06 | disposition home or self-care (01) ==
LOC: ANHED 12:18 → ANHIMU 14:19
PROVIDERS: Emergency Medicine; Internal Medicine; Internal Medicine Gastroenterology; Physician Assistant; Admitting Provider Internal Medicine; Emergency Provider Emergency Medicine; PCP Internal Medicine; Visit Provider Internal Medicine
PROC: 0DJ08ZZ Inspection of Upper Intestinal Tract, Via Natural or Artificial Opening Endoscopic (ICD-10-PCS; CPT 43235; principal; 2024-03-17 15:00)
DX: K25.9 Gastric ulcer, unspecified as acute or chronic, without hemorrhage or perforation (principal); D62 Acute posthemorrhagic anemia; K29.50 Unspecified chronic gastritis without bleeding; E87.6 Hypokalemia; I95.1 Orthostatic hypotension; I25.10 Atherosclerotic heart disease of native coronary artery without angina pectoris; I10 Essential (primary) hypertension; I48.0 Paroxysmal atrial fibrillation; I25.2 Old myocardial infarction; Z95.5 Presence of coronary angioplasty implant and graft; Z79.85 Long-term (current) use of injectable non-insulin antidiabetic drugs; Z79.01 Long term (current) use of anticoagulants; Z87.891 Personal history of nicotine dependence
CPT/HCPCS: 43239; 36415; 36430; 80053; 83735; 85014; 85018; 85025; 85027; 85610; 85730; 86850; 86900; 86901; 86923; 87081; 88305; 96365; 96366; 96375; 99285; A9270; C9113; G0378; J2704; J3480; J7030; J7040; J7050; J7120; P9016

== ENCOUNTER 2024-03-26 06:55 | Outpatient (CLI) | payer OTHER, SELFPAY ==
[2024-03-26 07:32] LABS: Alanine Aminotransferase 26 U/L (6-50); Albumin Level 3.8 g/dL (3.5-5.1); Alkaline Phosphatase 99 U/L (38-126); Anion Gap 5 mmol/L (4-12); Aspartate Amino Transferase 25 U/L (17-59); Bilirubin,Total 0.7 mg/dL (0.2-1.3); Blood Urea Nitrogen 16 mg/dL (9-20); Calcium 9.1 mg/dL (8.4-10.2); Carbon Dioxide 27 mmol/L (22-30); Chloride 111 mmol/L (98-107); Estimated Glomerular Filt Rate > 60; Glucose 109 mg/dL (65-110); Potassium 4.1 mmol/L (3.4-5.0); Sodium 143 mmol/L (137-145)
== END 2024-03-26 06:56 | disposition home or self-care (01) ==
LOC: ANHLAB 06:56
PROVIDERS: PCP Internal Medicine; Visit Provider Nurse Practitioner
DX: R74.8 Abnormal levels of other serum enzymes (principal)
CPT/HCPCS: 36415; 80053

== ENCOUNTER 2024-08-04 08:45 | Outpatient (RCR) | payer OTHER, SELFPAY ==
[2024-04-22 09:10] VITALS: PULSE 61
== END 2024-08-04 09:47 | disposition home or self-care (01) ==
LOC: ANHCPREHAB 08:45
PROVIDERS: PCP Internal Medicine; Visit Provider Specialist
DX: Z95.5 Presence of coronary angioplasty implant and graft (principal)
CPT/HCPCS: 93798

== ENCOUNTER 2025-01-08 15:26 | Emergency (ER) | payer OTHER, SELFPAY ==
--- NOTE | ~2025-01-08 | XR_ITS ---
CHEST RADIOGRAPH, PA AND LATERAL CLINICAL HISTORY: LEFT SIDE CHEST PAIN COMES AND GOES X TWO WEEKS . COMPARISON: 03/14/2024 TECHNIQUE: PA and lateral views of the chest. FINDINGS The cardiomediastinal silhouette is unremarkable. The lungs are clear. IMPRESSION: No focal infiltrate or effusion. Reviewed, dictated and finalized at location A.
--- NOTE | 2025-01-08 15:28 | ECG_ITS ---
Test Date: 2025-01-08 15:34:08 Measurements Intervals [place] Rate: 66 P: 52 AL: 188 QRS: 53 QRSD: 93 T: 55 QT: 377 QTc: 397 Interpretive Statements SINUS RHYTHM EARLY PRECORDIAL R/S TRANSITION BORDERLINE ECG Compared to ECG 03/13/2024 12:30:00 No significant changes Electronically Signed On 01-08-2025 15:57:42 CDT by Williams Reich D.O.
[2025-01-08 15:34] VITALS: BP 147/100; PULSE 66; RESP 18; TEMP 36.6; O2SAT 99
--- OUTSIDE RECORDS SUMMARY | 2025-01-08 15:41 | XMS_ITS | Encounter Summary ---
Author Organization [facility] Address [address] [place] [address] Phone Care Team Providers Care Sheet Hanger Name Role Phone Mak Baker MD Primary Care Provider [phone] Reason for Visit * Reason Comments Medication Refill Encounter Details Date Type Department Care Team (Late st Contact Info) Description 06/30/2023 Refill [facility] Medical Group - Family Medicine [facility] [address] [place] [address] Mak Baker MD [address] [address] Medication Refill Social History Tobacco Use Types Packs/Day Years Used Date Smoking Tobacco: Never Smokeless Tobacco: Never Alcohol Use Standard Drinks/Week Comments Yes 2 (1 standard drink = 0.6 oz pur e alcohol) WEEKLY PHQ-2 Answer Date Recorded PHQ-2 Score 0 06/23/2019 Education Answer Date Recorded What is the highest level of school you have completed or the highest degree you have received? 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 Requested Prescriptions Pending Prescriptions Disp Refills meloxicam (MOBIC) 7.5 MG Tablet [Pharmacy Med Name: MELOXICAM 7.5 MG TABLET] 90 Tablet 2 Sig: TAKE 1 TABLET BY MOUTH EVERY DAY NSAIDs Protocol Failed - 06/30/2023 7:18 AM Failed - Normal serum creatinine in past 12 months No results found for: CREATININE Failed - AST less than 55 or ALT less than 90 in past 12 months No results found for: SGOTAST No results found for: SGPTALT Failed - HGB greater than 10 or HCT greater than 30 in past 12 months HEMOGLOBIN (HGB) Date Value Ref Range Status 07/06/2016 14.7 13.0 - 16.5 g/dL Final HEMATOCRIT (HCT) Date Value Ref Range Status 07/06/2016 44.4 38.0 - 50.0 % Final Passed - Visit with relevant provider in past 12 months or upcoming 90 days Recent Visits Date Type Provider Dept 07/12/22 Office Visit Mak Baker MD [facility] Showing recent visits within past 365 days and meeting all other requirements Future Appointments Date Type Provider Dept 07/18/23 Appointment Mak Baker MD [facility] Showing future appointments within next 90 days and meeting all other requirements Passed - No matching NSAID med order in past 45 days No matching medication orders between 05/17/2023 9:51 AM and 07/01/2023 9:51 AM documented in this encounter Plan of Treatment Upcoming Encounters Date Type Department Care Team (Late st Contact Info) Description 10/14/2025 8:00 AM MANAGER UROLOGY Office Visit [facility] Medical Group - Family Medicine - [place] [address] [place] [address] Mak Baker MD [address] [address] documented as of this encounter Visit Diagnoses Not on filedocumented in this encounter Additional Health Concerns Assessment Noted Time PHQ-9 Depression Total Score: 0 02/26/20 19 3:24 PM MANAGER UROLOGY documented as of this encounter Care Teams Sheet Hanger Relationship Specialty Start Date End Date Mak Baker MD [address] [place] [id number] PCP - General Family Medicine 11/28/18 documented as of this encounter
--- OUTSIDE RECORDS SUMMARY | 2025-01-08 15:41 | XMS_ITS | Referral Summary ---
Author Organization [facility] [address] [place] [address] [address] [place] [address] Care Team Providers Care Tender Coordinator Name Role Phone Mak Baker MD Primary Care Provider [phone] Encounters Date Type Department Care Team Description 01/08/2025 Telephone [facility] Cardiology [address] [facility] [address] [place] [address] Mak Ritter MD 12/05/2024 9:30 AM DIAPER FOLDER Office Visit [facility] Cardiology [address] [place] [address] Mak Ritter MD Cardiac arrest (HCC) (Primary Dx); Presence of stent in coronary artery; History of ST elevation myocardial infarction (STEMI) 10/28/2024 8:00 AM DIAPER FOLDER Office Visit [facility] Orthopedic and Sports Medicine [address] [place] [address] Ashley Espinoza PA Subacromial impingement of right shoulder (Primary Dx); Arthritis of right acromioclavicular joint from Last 3 Months Allergies No known active allergies Medications aspirin 81 mg enteric coated tablet Take 1 tablet (81 mg total) by mouth daily Active clopidogreL (PLAVIX) 75 mg tablet Take 1 tablet (75 mg total) by mouth every morning 90 tablet 3 08/14/2024 Active losartan (COZAAR) 25 mg tablet Take 1 tablet (25 mg total) by mouth daily 90 tablet 3 08/14/2024 Active metoprolol XL (TOPROL-XL) 25 mg extended release tablet Take 1 tablet (25 mg total) by mouth daily 90 tablet 3 08/14/[address] (PROTONIX) 40 mg EC tablet Take 1 tablet (40 mg total) by mouth 2 (two) times a day 180 tablet 3 08/14/2024 Active rosuvastatin (CRESTOR) 40 mg tablet Take 1 tablet (40 mg total) by mouth daily Active Active Problems Problem Noted Date Diagnosed Date Coronary artery disease invo lving sleetm[place] coronary artery of [place] heart without angina pectoris 04/08/2024 Cardiac arrest 04/08/2024 History of GI bleed 04/08/2024 Presence of stent in coronary artery 04/08/[address] elevation myocardial infarction (S CATRACHITO) 04/08/2024 Knee pain 01/20/2015 Overview (01/11/2017): Recurrent pain of left knee Social History Tobacco Use Types Packs/Day Years Used Date Smoking Tobacco: Never Tobacco Cessation:Counseling Given: Not Answered Alcohol Use Standard Drinks/Week Comments Yes 0 (1 standard drink = 0.6 oz pur e alcohol) AUDIT-C Answer Date Recorded Q1: How often do you have a drink containing alc ohol? Monthly or less 08/26/2024 Q2: How many drinks containi ng alcohol do you have on a typical day when you are drinking? 1 or 2 08/26/2024 Q3: How often do you have si x or more drinks on one occasion? Monthly 08/26/2024 Sex and Gender Information Value Date Recorded Sex Assigned at Not on file Legal Sex Male 8:57 PM DIAPER FOLDER Gender Identity Not on file Sexual Orientation Not on file Last Filed Vital Signs Vital Sign Reading Time Taken Comments Blood Pressure 124/82 12/05/2024 9:36 AM DIAPER FOLDER Pulse 66 12/05/2024 9:36 AM DIAPER FOLDER Temperature - - Respiratory Rate 18 08/26/2024 8:12 AM DIAPER FOLDER Oxygen Saturation 96% 12/05/2024 9:36 AM DIAPER FOLDER Inhaled Oxygen Concentration - - Weight 78.8 kg (173 lb 12.8 oz) 12/05/2024 9:36 AM DIAPER FOLDER Height 175.3 cm (5' 9 ) 12/05/2024 9:36 AM DIAPER FOLDER Body Mass Index 25.67 12/05/2024 9:36 AM DIAPER FOLDER Plan of Treatment Not on file [place] [address] [facility] HMO Care Teams Tender Coordinator Relationship Specialty Start Date End Date Mak Baker MD [address] [address] PCP - General Family Medicine 04/08/24
--- OUTSIDE RECORDS SUMMARY | 2025-01-08 15:41 | XMS_ITS | Encounter Summary ---
Author Organization [facility] Address [address] [place] [address] Care Team Providers Care Scanning Manager Name Role Phone Mak Baker MD Primary Care Provider [phone] Encounter Details Date Type Department Care Team (Late st Contact Info) Description 01/08/2025 Telephone [facility] Medical Group Cardiology [address] [facility] [address] [place] [address] Mak Ritter MD [address] [place] [address] Social History Tobacco Use Types Packs/Day Years Used Date Smoking Tobacco: Never Alcohol Use Standard Drinks/Week Comments Yes 0 [...] on file Legal Sex Male 8:57 PM ASSESSMENT RN Gender Identity Not on file Sexual Orientation Not on file documented as of this encounter Miscellaneous Notes * Telephone Encounter - Nupur Eli RN - 01/08/2025 10:19 AM CDT Spoke with pts spouse, spouse reports that pt has been having lightheadedness, left shoulder pain, and OWENS x 2 days. Pt advised to go to the ER for evaluation of symptoms. Spouse verbalizes understanding. She asked what to do if he will not go to the ER, advised that we could schedule the pt an appt to be seen in the office, but my recommendation now would be to go to the ER. * Telephone Encounter - Pat Stahl - 01/08/2025 9:45 AM CDT Pt calling in to report Lightheadedness during exertion and left shoulder blade pain but not radiating. Started about 2 days ago consistently. Please call back at [phone]. documented in this encounter Plan of Treatment Not on file documented as of this encounter Visit Diagnoses Not on filedocumented in this encounter Care Teams Scanning Manager Relationship Specialty Start Date End Date Mak Baker MD [address] [address] PCP - General Family Medicine 04/08/24 documented as of this encounter
--- OUTSIDE RECORDS SUMMARY | 2025-01-08 15:41 | XMS_ITS | Encounter Summary ---
Author Organization [facility] Address [address] [place] [address] Phone Care Team Providers Care Health Assistant Name Role Phone Mak Baker MD Primary Care Provider [phone] Reason for Visit * Reason Comments Medication Refill Encounter Details Date Type Department Care Team (Late st Contact Info) Description 01/09/2023 Refill [facility] [address] [place] [address] Mak Baker MD [address] [address] Medication Refill Social History Tobacco Use Types [...] encounter Miscellaneous Notes * Telephone Encounter - Zully Cox RN - 01/10/2023 9:59 AM CDT Medication failed the protocol, provider to review and approve the medication order if appropriate. Requested Prescriptions Pending Prescriptions Disp Refills losartan potassium-hydrochlorothiazide (HYZAAR) 100-25 MG Tablet [Pharmacy Med Name: LOSARTAN-HCTZ 100-25 MG TAB] 90 Tablet 1 Sig: TAKE 1 TABLET BY MOUTH EVERY DAY ANGIOTENSIN-II RECEPTOR BLOCKERS-DIURETICS COMBO PROTOCOL Failed - 01/09/2023 1:58 PM Failed - Serum potassium on record in past 12 months No results found for: POTASSIUM, POCTK Failed - Serum sodium on record in past 12 months No results found for: SODIUM Failed - GFR on record in past 12 months No results found for: GFRNA Passed - BP on record in the past year Clinician-entered: BP Readings from Last 3 Encounters: 07/12/22 124/86 01/03/22 120/72 07/06/21 148/84 Patient-entered: No data recorded Passed - Visit with relevant provider in past year or upcoming 90 days Recent Visits Date Type Provider Dept 07/12/22 Office Visit Mak Baker MD [facility] Showing recent visits within past 365 days and meeting all other requirements Future Appointments No visits were found meeting these conditions. Showing future appointments within next 90 days and meeting all other requirements documented in this encounter Plan of Treatment Upcoming Encounters Date Type Department Care Team (Late st Contact Info) Description 10/14/2025 8:00 AM BLEACH PLANT OPERATOR Office Visit [facility] Medical Group - Family Medicine - [place] [address] [place] [address] Mak Baker MD [address] [address] documented as of this encounter Visit Diagnoses Not on filedocumented in this encounter Additional Health Concerns Assessment Noted Time PHQ-9 Depression Total Score: 0 12/03/19 19 3:24 PM BLEACH PLANT OPERATOR documented as of this encounter Care Teams Health Assistant Relationship Specialty Start Date End Date Mak Baker MD [address] [address] PCP - General Family Medicine 11/28/18 documented as of this encounter
--- OUTSIDE RECORDS SUMMARY | 2025-01-08 15:41 | XMS_ITS | Clinical Summary ---
Author Organization [facility] Address [address] [place] [address] Phone Care Team Providers Care Warehouse Order Filler Name Role Phone Mak Baker MD Primary Care Provider [phone] Allergies No known active allergies Medications pantoprazole (PROTONIX) 40 MG Tablet Delayed Response Take 40 mg by mouth daily. 08/14/2024 Active aspirin EC 81 MG Tablet Delayed Response Take 81 mg by mouth daily. Active metoprolol Succinate (TOPROL-XL) 25 MG TABLET SR 24 HR Take 25 mg by mouth daily. 08/14/2024 Active losartan (COZAAR) 25 MG Tablet Take 25 mg by mouth daily. 08/14/2024 Active clopidogrel (PLAVIX) 75 MG Tablet Take 75 mg by mouth daily. 08/14/2024 Active rosuvastatin (CRESTOR) 40 MG Tablet Take 1 Tablet by mouth daily. 90 Tablet 3 10/09/2024 Active Active Problems Problem Noted Date Diagnosed Date Chronic left shoulder pain 12/03/2018 Screening for colon cancer 12/03/2018 Left-sided chest wall pain 12/03/2018 Screening for prostate cancer 12/03/2018 Physical exam, annual (Adult) 10/28/2018 Seasonal allergies Immunizations Immunization Administration Dates Next Due Influenza Vaccine 07/31/2024,07/17/2023,07/12/20 18 Influenza Vaccine greater than 3 yrs 08/05/2020 Influenza, Seasonal, Injectable, Undefined 08/05 Pneumococcal conjugate PCV20 , polysaccharide [id number] conjugate, adjuvant, PF 10/09/2024 TDAP Vaccine 03/11/2024 Tetanus Toxoid, Unspecified Formulation 10/08/18 96 Family History Medical History Relation Name Comments Cancer Father PROSTATE Hypertension Father Heart Disease Mother Cancer Paternal Grandfather mouth Cancer Paternal Uncle lung Relation Name Status Comments Father Alive Mother Alive Paternal Grandfather Paternal Uncle Social History Tobacco Use Types Packs/Day Years Used Date Smoking Tobacco: Never Smokeless Tobacco: Never Tobacco Cessation:Counseling Given: Yes Alcohol Use Standard Drinks/Week Comments Yes 2 (1 standard drink = 0.6 oz pur e alcohol) WEEKLY PHQ-2 Answer Date Recorded Total Score - Questions 1-9 0 11/2024 Education Answer Date Recorded What is the highest level of school you have completed or the highest degree you have received? 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 on file Not on file Last Filed Vital Signs Vital Sign Reading Time Taken Comments Blood Pressure 126/70 10/09/2024 7:59 AM KELP CUTTER Pulse 50 10/09/2024 7:59 AM KELP CUTTER Temperature 36.2 C (97.2 F) 10/09/2024 7:59 AM KELP CUTTER Respiratory Rate 12 10/09/2024 7:59 AM KELP CUTTER Oxygen Saturation 100% 10/09/2024 7:59 AM KELP CUTTER Inhaled Oxygen Concentration - - Weight 78.6 kg (173 lb 4.8 oz) 10/09/2024 7:59 A M KELP CUTTER Height 175.3 cm (5' 9 ) 10/09/2024 7:59 AM KELP CUTTER Body Mass Index 25.59 10/09/2024 7:59 AM KELP CUTTER Plan of Treatment Upcoming Encounters Date Type Department Care Team (Late st Contact Info) Description 10/14/2025 8:00 AM KELP CUTTER [facility] Visit [facility] - Family Medicine [facility] [address] [place] [address] Mak Baker MD [address] [address] Health Maintenance Due Date Last Done Comments [place] 2012 Immunochemical Fecal Occult Blood 2012 Zoster Immunization (1 of 2) 2012 Respiratory Syncytial Virus (RSV) Immunization (Adult) (1 - Risk 60-74 years 1-dose series) 2022 Colonoscopy 12/14/2023 12/13/2018, 05/29/2014 Colorectal Cancer Screening 12/14/2023 SARS-COV-2 Immunization ( season) 2024 06/06/2021, 05/12/2021 Td Immunization Every 10 Years (Adults With 1 Tdap) 03/11/2034 03/11/2024 12/13/2018, 05/29/2014 DTaP/Tdap/Td Immunization Discontinued 03/11/2024 Hepatitis C Virus (HCV) Screening Completed 03/11/2024 TdaP Immunization Discontinued 03/11/2024 Influenza Immunization Completed , 07/17/2023, 08/05/2020, Additional history exists PSA Discussion Completed 09/24/2024, 09/07, 07/11/2023, Additional history exists Pneumococcal Immunization (50+ years) Completed 10/09/2024 Pneumococcal Immunization Combined Discontinued 10/09/2024 Hepatitis B Immunization Aged Out No longer eligible based on patient's age to complete this topic Meningococcal Immunization (ACWY) Aged Out No longer eligible based on patient's age to complete this topic Rotavirus Immunization Aged Out No lo nger eligible based on patient's age to complete this topic Procedures Procedure Name Priority Date/Time Associated Diagnosis Comments PSA SCREEN Routine 09/24/2024 Screening for prostate cancer HEPATITIS PANEL ACUTE (AHP) 03/11/2024 12:00 AM CDT HM COLONOSCOPY Routine 05/29/2014 from Last 3 Months or Most Recently Relevant to Health Maintenance Results * PSA SCREEN (09/24/2024) Blood 09/24/2024 us Mak Baker MD CHEMISTRY ORDERABLES Final Re sult * HEPATITIS PANEL ACUTE (AHP) (03/11/2024 12:00 AM CDT) 03/11/2024 us Provider Scan HEMATOLOGY ORDERABLES Final Resu lt SCAN * COLONOSCOPY (05/29/2014) Vini Kelly Na DO PROCEDURE/MINOR SURGICAL ORDERA BLES Edited Result - Final from Last 3 Months or Most Recently Relevant to Health Maintenance Insurance [employer] Care Teams Warehouse Order Filler Relationship Specialty Start Date End Date Mak Baker MD #[address] [address] PCP - General Family Medicine 11/28/18
--- OUTSIDE RECORDS SUMMARY | 2025-01-08 15:41 | XMS_ITS | Clinical Summary ---
Author Organization [facility] [address] Address [address] [place] [address] Care Team Providers Care Expressive Therapist Name Role Phone Mak Baker MD Primary Care Provider [phone] Allergies No known active allergies Medications aspirin [...] Diagnosed Date Coronary artery disease invo lving pal[place] coronary artery of pala heart without angina pectoris 04/08/2024 Cardiac arrest 04/08/2024 History of GI bleed 04/08/2024 Presence of stent in coronary artery 04/08/[address] elevation myocardial infarction (S CATRACHITO) 04/08/2024 Knee pain 01/20/2015 Overview (01/11/2017): Recurrent pain of left knee Encounters Date Type Department Care Team Description 01/08/2025 Telephone [facility] Cardiology [address] [place] [phone] Mak Ritter MD 12/05/2024 9:30 AM JUNIOR DATABASE ADMINISTRATOR Office Visit [facility] Cardiology [address] [place] [phone] Mak Ritter MD Cardiac arrest (HCC) (Primary Dx); Presence of stent in coronary artery; History of ST elevation myocardial infarction (STEMI) 10/28/2024 8:00 AM JUNIOR DATABASE ADMINISTRATOR Office Visit [facility] Orthopedic and Sports Medicine [facility] [place] [address] Ashley Espinoza PA Subacromial impingement of right shoulder (Primary Dx); Arthritis of right acromioclavicular joint from Last 3 Months Surgical History Surgery Date Site/Laterality Comments OTHER SURGICAL HISTORY benign neck tumor removed Medical History Medical History Date Comments Hx Other Medical high cholestero l Coronary artery disease Hypertension Family History Medical History Relation Name Comments Atrial fibrillation Father Dementia Mother Hypertension Other 1 Family history of Hypertension; Cancer Other 2 Family history of cancer; Relation Name Status Comments Father Alive Mother Alive Other 1 Other 2 Social History Tobacco Use Types Packs/Day Years [...] on file Legal Sex Male 8:57 PM JUNIOR DATABASE ADMINISTRATOR Gender Identity Not on file Sexual Orientation Not on file Obstetrics History Last Filed Vital Signs Vital Sign Reading Time Taken Comments Blood Pressure 124/82 12/05/2024 9:36 AM JUNIOR DATABASE ADMINISTRATOR Pulse 66 12/05/2024 9:36 AM JUNIOR DATABASE ADMINISTRATOR Temperature - - Respiratory Rate 18 08/26/2024 8:12 AM JUNIOR DATABASE ADMINISTRATOR Oxygen Saturation 96% 12/05/2024 9:36 AM JUNIOR DATABASE ADMINISTRATOR Inhaled Oxygen Concentration - - Weight 78.8 kg (173 lb 12.8 oz) 12/05/2024 9:36 AM JUNIOR DATABASE ADMINISTRATOR Height 175.3 cm (5' 9 ) 12/05/2024 9:36 AM JUNIOR DATABASE ADMINISTRATOR Body Mass Index 25.67 12/05/2024 9:36 AM JUNIOR DATABASE ADMINISTRATOR Plan of Treatment Health Maintenance Due Date Last Done Comments Colon Cancer Screening-Colonoscopy 1960 Depression Screening 1960 Hepatitis C Screening 1962 Prostate Cancer Screening-PSA 1962 Hepatitis B Screening 1980 Regular Well Visit/Exam 18-64 1980 Zoster Vaccine (1 of 2) 2012 Covid-19 Vaccine (3 - season) 2024 06/06/2021, 05/12/2021 DTaP/Tdap/Td Vaccine (2 - Td or Tdap) 03/11/2034 03/11/2024 Influenza Vaccine Completed 07/31/2024, , 08/05/2020, Additional history exists Pneumococcal vaccine <65 Aged Out No longer eligible based on patient's age to complete this topic Insurance [facility] Care Teams Expressive Therapist Relationship Specialty Start Date End Date Mak Baker MD [address] [address] PCP - General Family Medicine 04/08/24
--- OUTSIDE RECORDS SUMMARY | 2025-01-08 15:41 | XMS_ITS | Encounter Summary ---
Author Organization [facility] Address [address] [place] [address] Phone Care Team Providers Care Teasel Gig Operator Name Role Phone Mak Baker MD Primary Care Provider [phone] Reason for Visit * Reason Comments Medication Refill Encounter Details Date Type Department Care Team (Late st Contact Info) Description 01/19/2024 Refill [facility] - [facility] [address]2 [place] [address] Mak Baker MD #[address] [address] Medication Refill Social History Tobacco Use Types Packs/Day Years Used Date Smoking Tobacco: Never Smokeless Tobacco: Never Alcohol Use Standard Drinks/Week Comments Yes 2 (1 standard drink = 0.6 oz pur e alcohol) WEEKLY PHQ-2 Answer Date Recorded Total Score - Questions 1-9 0 07/08 Education Answer Date Recorded What is the [...] Telephone Encounter - Toshia Paula RN - 01/19/2024 2:59 PM CDT Medication failed the protocol, provider to review and approve the medication order if appropriate. Requested Prescriptions Pending Prescriptions Disp Refills losartan potassium-hydrochlorothiazide (HYZAAR) 100-25 MG Tablet [Pharmacy Med Name: LOSARTAN-HCTZ 100-25 MG TAB] 90 Tablet 1 Sig: TAKE 1 TABLET BY MOUTH EVERY DAY ANGIOTENSIN-II RECEPTOR BLOCKERS-DIURETICS COMBO PROTOCOL Failed - 01/19/2024 7:06 AM Failed - Serum potassium on record in past 12 months No results found for: POTASSIUM , POCTK Failed - Serum sodium on record in past 12 months No results found for: SODIUM Failed - GFR on record in past 12 months No results found for: GFRNA Passed - BP on record in the past year Clinician-entered: BP Readings from Last 3 Encounters: 07/18/23 126/82 07/12/22 124/86 01/03/22 120/72 Patient-entered: No data recorded Passed - Visit with relevant provider in past year or upcoming 90 days Recent Visits Date Type Provider Dept 07/18/23 Office Visit Mak Baker MD [facility] Showing recent visits within past 365 days and meeting all other requirements Future Appointments No visits were found meeting these conditions. Showing future appointments within next 90 days and meeting all other requirements documented in this encounter Plan of Treatment Upcoming Encounters Date Type Department Care Team (Late st Contact Info) Description 10/14/2025 8:00 AM PENCILS WASHER Office Visit [facility] - Family Medicine - [place] [address] [address] Mak Baker MD [id number] [address] documented as of this encounter Visit Diagnoses Not on filedocumented in this encounter Additional Health Concerns Assessment Noted Time PHQ-9 Depression Total Score: 0 07/18/20 8:36 AM CDT documented as of this encounter Care Teams Teasel Gig Operator Relationship Specialty Start Date End Date Mak Baker MD [address] [address] PCP - General Family Medicine 11/28/18 documented as of this encounter
--- OUTSIDE RECORDS SUMMARY | 2025-01-08 15:41 | XMS_ITS | Encounter Summary ---
Author Organization [facility] Address [address] [place] [address] Phone Care Team Providers Care Aeronautical Engineering Technologist Name Role Phone Mak Baker MD Primary Care Provider [phone] Reason for Visit * Reason Comments Medication Refill Encounter Details Date Type Department Care Team (Late st Contact Info) Description 07/18/2023 Refill [facility] - [facility] #2 [place] [address] Mak Baker MD #[address] [address] Medication Refill Social History Tobacco Use Types [...] file Not on file Not on file COVID-19 Exposure Response Date Recorded In the last 10 days, have yo u been in contact with someone who was confirmed or suspected to have Coronavirus/COVID-19? No / Unsure 07/18/2023 8:23 AM CDT documented as of this encounter Functional Status * Question Answer Date of Assessment Author Little interest or pleasure in doing things Not at all 07/18/2023 8:36 AM CDT Alyse Nichols RMA Feeling down, depressed, or hopeless Not at all 07/18/2023 8:36 AM CDT Alyse Nichols RMA * Over the past 2 weeks, how often have you been bothered by any of the following problems? Question Answer Date of Assessment Author Patient Health Questionnaire -2 Score 0 07/18/2023 8:36 AM CDT Alyse Nichols RMA documented as of this encounter Miscellaneous Notes * Telephone Encounter - Janina Najera RN - 07/18/2023 9:45 AM CDT Patient had OV today. Medication failed the protocol, provider to review and approve the medication order if appropriate. Requested Prescriptions Pending Prescriptions Disp Refills losartan potassium-hydrochlorothiazide (HYZAAR) 100-25 MG Tablet [Pharmacy Med Name: LOSARTAN-HCTZ 100-25 MG TAB] 90 Tablet 1 Sig: TAKE 1 TABLET BY MOUTH EVERY DAY ANGIOTENSIN-II RECEPTOR BLOCKERS-DIURETICS COMBO PROTOCOL Failed - 07/18/2023 12:05 AM Failed - Serum potassium on record in past 12 months No results found for: POTASSIUM, POCTK Failed - Serum sodium on record in past 12 months No results found for: SODIUM Failed - BP on record in the past year Clinician-entered: BP Readings from Last 3 Encounters: 07/18/23 126/82 07/12/22 124/86 01/03/22 120/72 Patient-entered: No data recorded Failed - Visit with relevant provider in past year or upcoming 90 days Recent Visits No visits were found meeting these conditions. Showing recent visits within past 365 days and meeting all other requirements Today's Visits Date Type Provider Dept 07/18/23 Office Visit Mak Baker MD [facility] Showing today's visits and meeting all other requirements Future Appointments No visits were found meeting these conditions. Showing future appointments within next 90 days and meeting all other requirements Failed - GFR on record in past 12 months No results found for: GFRNA documented in this encounter Plan of Treatment Upcoming Encounters Date Type Department Care Team (Late st Contact Info) Description 10/14/2025 8:00 AM .NET PROGRAMMER [facility] [place] [address] Mak Baker MD #[address] [address] documented as of this encounter Visit Diagnoses Not on filedocumented in this encounter Additional Health Concerns Assessment Noted Time PHQ-9 Depression Total Score: 0 07/18/20 23 8:36 AM CDT documented as of this encounter Care Teams Aeronautical Engineering Technologist Relationship Specialty Start Date End Date Mak Baker MD #[address] [address] PCP - General Family Medicine 11/28/18 documented as of this encounter
[2025-01-08] MEDS: ASPIRIN 81 MG CHEWABLE TABLET 324 MG PO (17:21)
--- OUTSIDE RECORDS SUMMARY | 2025-01-08 17:32 | XMS_ITS | Clinical Summary ---
Author Organization [facility] Address [address] [place] [address] Phone Care Team Providers Care Inventory Transcriber Name Role Phone Mak Baker MD Primary Care Provider Allergies No known active allergies Medications pantoprazole [...] Undefined 08/05 Pneumococcal conjugate PCV20 , polysaccharide RHD304 conjugate, adjuvant, PF 10/09/2024 TDAP Vaccine 03/11/2024 [...] Comments Blood Pressure 126/70 10/09/2024 7:59 AM SURGICAL DRESSING MAKER Pulse 50 10/09/2024 7:59 AM SURGICAL DRESSING MAKER Temperature 36.2 C (97.2 F) 10/09/2024 7:59 AM SURGICAL DRESSING MAKER Respiratory Rate 12 10/09/2024 7:59 AM SURGICAL DRESSING MAKER Oxygen Saturation 100% 10/09/2024 7:59 AM SURGICAL DRESSING MAKER Inhaled Oxygen Concentration - - Weight 78.6 kg (173 lb 4.8 oz) 10/09/2024 7:59 A M SURGICAL DRESSING MAKER Height 175.3 cm (5' 9 ) 10/09/2024 7:59 AM SURGICAL DRESSING MAKER Body Mass Index 25.59 10/09/2024 7:59 AM SURGICAL DRESSING MAKER Plan of Treatment Upcoming Encounters Date Type Department Care Team (Late st Contact Info) Description 10/14/2025 8:00 AM SURGICAL DRESSING MAKER Office Visit [facility] - Family Medicine [facility] [address] [place] [address] Mak Baker MD [address] [address] Health Maintenance Due Date Last Done Comments [...] Most Recently Relevant to Health Maintenance Insurance * Guarantor: Vini Wahl Account Type Relation to Patient Date of Phone Billing Address Personal/Family Self 1960 [address] [place] [address] [employer] Care Teams Inventory Transcriber Relationship Specialty Start Date End Date Mak Baker MD #[address] [address] PCP - General Family Medicine 11/28/18
--- OUTSIDE RECORDS SUMMARY | 2025-01-08 17:32 | XMS_ITS | Referral Summary ---
Author Organization [facility] [address] [place] [address] [address] [place] [address] Care Team Providers Care Top Precipitator Operator Name Role Phone Mak Baker MD Primary Care Provider [phone] Encounters Date Type Department Care Team Description 01/08/[address] [facility] Cardiology [address] [place] [address] Mak Ritter MD 12/05/2024 9:30 AM PERSONAL DRIVER Office Visit [facility] Cardiology [address] [place] [address] Mak Ritter MD Cardiac arrest (HCC) (Primary Dx); Presence of stent in coronary artery; History of ST elevation myocardial infarction (STEMI) 10/28/2024 8:00 AM PERSONAL DRIVER Office Visit [facility] Orthopedic and Sports Medicine [address] [place] [address] Ashley Espinoza PA Subacromial impingement of [...] Diagnosed Date Coronary artery disease invo lving [place] coronary artery of [place] heart without angina pectoris 04/08/2024 Cardiac arrest [...] on file Legal Sex Male 8:57 PM PERSONAL DRIVER Gender Identity Not on file Sexual Orientation Not on file Last Filed Vital Signs Vital Sign Reading Time Taken Comments Blood Pressure 124/82 12/05/2024 9:36 AM PERSONAL DRIVER Pulse 66 12/05/2024 9:36 AM PERSONAL DRIVER Temperature - - Respiratory Rate 18 08/26/2024 8:12 AM PERSONAL DRIVER Oxygen Saturation 96% 12/05/2024 9:36 AM PERSONAL DRIVER Inhaled Oxygen Concentration - - Weight 78.8 kg (173 lb 12.8 oz) 12/05/2024 9:36 AM PERSONAL DRIVER Height 175.3 cm (5' 9 ) 12/05/2024 9:36 AM PERSONAL DRIVER Body Mass Index 25.67 12/05/2024 9:36 AM PERSONAL DRIVER Plan of Treatment Not on [place] [place] [address] [facility] Care Teams Top Precipitator Operator Relationship Specialty Start Date End Date Mak Baker MD [address] [address] PCP - General Family Medicine 04/08/24
--- OUTSIDE RECORDS SUMMARY | 2025-01-08 17:32 | XMS_ITS | Clinical Summary ---
Author Organization [facility] [address] Address [address] [place] [address] Care Team Providers Care Engraver Rubber Name Role Phone Mak Baker MD Primary Care Provider [phone] Allergies No known active allergies Medications aspirin [...] Diagnosed Date Coronary artery disease invo lving [place] coronary artery of [place] heart without angina pectoris 04/08/2024 Cardiac arrest 04/08/2024 History of GI bleed 04/08/2024 Presence of stent in coronary artery 04/08/[address] elevation myocardial infarction (S CATRACHITO) 04/08/2024 Knee pain 01/20/2015 Overview (01/11/2017): Recurrent pain of left knee Encounters Date Type Department Care Team Description 01/08/2025 Telephone [facility] Cardiology [address] [place] [address] Mak Ritter MD 12/05/2024 9:30 AM SWITCHBOARD MECHANIC Office Visit [facility] Cardiology [address] [place] [phone] Mak Ritter MD Cardiac arrest (HCC) (Primary Dx); Presence of stent in coronary artery; History of ST elevation myocardial infarction (STEMI) 10/28/2024 8:00 AM SWITCHBOARD MECHANIC Office Visit [facility] Orthopedic and Sports Medicine [facility] [place] [address] Ashley Espinoza PA Subacromial impingement [...] on file Legal Sex Male 8:57 PM SWITCHBOARD MECHANIC Gender Identity Not on file Sexual Orientation Not on file Obstetrics History Last Filed Vital Signs Vital Sign Reading Time Taken Comments Blood Pressure 124/82 12/05/2024 9:36 AM SWITCHBOARD MECHANIC Pulse 66 12/05/2024 9:36 AM SWITCHBOARD MECHANIC Temperature - - Respiratory Rate 18 08/26/2024 8:12 AM SWITCHBOARD MECHANIC Oxygen Saturation 96% 12/05/2024 9:36 AM SWITCHBOARD MECHANIC Inhaled Oxygen Concentration - - Weight 78.8 kg (173 lb 12.8 oz) 12/05/2024 9:36 AM SWITCHBOARD MECHANIC Height 175.3 cm (5' 9 ) 12/05/2024 9:36 AM SWITCHBOARD MECHANIC Body Mass Index 25.67 12/05/2024 9:36 AM SWITCHBOARD MECHANIC Plan of Treatment Health Maintenance Due Date [...] patient's age to complete this topic [facility] Care Teams Engraver Rubber Relationship Specialty Start Date End Date Mak Baker MD [address] [address] PCP - General Family Medicine 04/08/24
--- OUTSIDE RECORDS SUMMARY | 2025-01-08 17:32 | XMS_ITS | Encounter Summary ---
Author Organization [facility] Address [address] [place] [address] Care Team Providers Care Energy Analyst Name Role Phone Mak Baker MD Primary Care Provider [phone] Encounter Details Date Type Department Care Team (Late st Contact Info) Description 01/08/2025 Telephone [facility] Cardiology [address] [facility] [address] [place] [address] Mak Ritter MD [address] [place] [address] Social History Tobacco Use Types [...] on file Legal Sex Male 8:57 PM MANAGER APPLE Gender Identity Not on file Sexual Orientation [...] days ago consistently. Please call back at [phone]. documented in this encounter Plan of Treatment Not on file documented as of this encounter Visit Diagnoses Not on filedocumented in this encounter Care Teams Energy Analyst Relationship Specialty Start Date End Date Mak Baker MD [address] [address] PCP - General Family Medicine 04/08/24 documented as of this encounter
--- OUTSIDE RECORDS SUMMARY | 2025-01-08 17:32 | XMS_ITS | Encounter Summary ---
Author Organization [facility] Address [address] [place] [address] Phone Care Team Providers Care Rental Salesperson Name Role Phone Mak Baker MD Primary Care Provider [phone] Reason for Visit * Reason Comments Medication Refill Encounter Details Date Type Department Care Team (Late st Contact Info) Description 01/09/2023 Refill [facility] #2 [place] [address] Mak Baker MD #[address] [address] Medication Refill Social History Tobacco Use Types [...] Dept 07/12/22 Office Visit Mak Baker MD [facility] Showing recent visits within past 365 days and meeting all other requirements Future Appointments No visits were found meeting these conditions. Showing future appointments within next 90 days and meeting all other requirements documented in this encounter Plan of Treatment Upcoming Encounters Date Type Department Care Team (Late st Contact Info) Description 10/14/2025 8:00 AM CAR PICK UP DRIVER Office Visit [facility] - Family Medicine - [place] #2 [place] [address] Mak Baker MD #[address] [address] documented as of this encounter Visit Diagnoses Not on filedocumented in this encounter Additional Health Concerns Assessment Noted Time PHQ-9 Depression Total Score: 0 12/03/19 19 3:24 PM CAR PICK UP DRIVER documented as of this encounter Care Teams Rental Salesperson Relationship Specialty Start Date End Date Mak Baker MD #[address] [address] PCP - General Family Medicine 11/28/18 documented as of this encounter
--- OUTSIDE RECORDS SUMMARY | 2025-01-08 17:32 | XMS_ITS | Encounter Summary ---
Author Organization [facility] Address [address] [place] [address] Phone Care Team Providers Care Air Bag Buffer Name Role Phone Mak Baker MD Primary Care Provider [phone] Reason for Visit * Reason Comments Medication Refill Encounter Details Date Type Department Care Team (Late st Contact Info) Description 01/19/2024 Refill [facility] - [facility] #[address] [place] [address] Mak Baker MD #[address] [address] Medication Refill Social History Tobacco Use Types [...] Dept 07/18/23 Office Visit Mak [facility] MD [facility] Showing recent visits within past 365 days and meeting all other requirements Future Appointments No visits were found meeting these conditions. Showing future appointments within next 90 days and meeting all other requirements documented in this encounter Plan of Treatment Upcoming Encounters Date Type Department Care Team (Late st Contact Info) Description 10/14/2025 8:00 AM ENGRAVER PICTURE Office Visit [facility] - Family Medicine - [place] [address] [place] [place] [address] Mak Baker MD [id number] [address] documented as of this encounter Visit Diagnoses Not on filedocumented in this encounter Additional Health Concerns Assessment Noted Time PHQ-9 Depression Total Score: 0 07/18/20 8:36 AM CDT documented as of this encounter Care Teams Air Bag Buffer Relationship Specialty Start Date End Date Mak Baker MD [address] [address] PCP - General Family Medicine 11/28/18 documented as of this encounter
--- OUTSIDE RECORDS SUMMARY | 2025-01-08 17:32 | XMS_ITS | Encounter Summary ---
Author Organization [facility] Address [address] [place] [address] Phone Care Team Providers Care Retort Furnace Helper Name Role Phone Mak Baker MD Primary Care Provider [phone] Reason for Visit * Reason Comments Medication Refill Encounter Details Date Type Department Care Team (Late st Contact Info) Description 06/30/2023 Refill [facility] - Family Medicine [facility] #2 [place] [address] Mak Baker MD #[address] [address] Medication Refill Social History Tobacco Use Types [...] Dept 07/12/22 Office Visit [facility] recent visits within past 365 days and meeting all other requirements Future Appointments Date Type Provider Dept 07/18/23 Appointment Mak Baker MD [facility] Showing future appointments within next 90 days and meeting all other requirements Passed - No matching NSAID med order in past 45 days No matching medication orders between 05/17/2023 9:51 AM and 07/01/2023 9:51 AM documented in this encounter Plan of Treatment Upcoming Encounters Date Type Department Care Team (Late st Contact Info) Description 10/14/2025 8:00 AM [place] Office Visit [facility] - Family Medicine - [place] [address] [place] [address] Mak Baker MD [address] [address] documented as of this encounter Visit Diagnoses Not on filedocumented in this encounter Additional Health Concerns Assessment Noted Time PHQ-9 Depression Total Score: 0 02/26/20 19 3:24 PM [place] [place] documented as of this encounter Care Teams Retort Furnace Helper Relationship Specialty Start Date End Date Mak Baker MD #2 [place] [id number] PCP - General Family Medicine 11/28/18 documented as of this encounter
--- OUTSIDE RECORDS SUMMARY | 2025-01-08 17:32 | XMS_ITS | Encounter Summary ---
Author Organization [facility] Address [address] [place] [address] Phone Care Team Providers Care Document Reviewer Name Role Phone Mak Baker MD Primary Care Provider [phone] Reason for Visit * Reason Comments Medication Refill Encounter Details Date Type Department Care Team (Late st Contact Info) Description 07/18/2023 Refill [facility] [place] [address] [place] [address] Mak Baker MD [address] [address] Medication Refill Social History Tobacco Use Types [...] Dept 07/18/23 Office Visit Mak Baker MD [facility] Showing today's visits and meeting all [...] st Contact Info) Description 10/14/2025 8:00 AM [employer] Office Visit [facility] [address] [place] [address] Mak Baker MD [address] [address] documented as of this encounter Visit Diagnoses Not on filedocumented in this encounter Additional Health Concerns Assessment Noted Time PHQ-9 Depression Total Score: 0 07/18/20 23 8:36 AM CDT documented as of this encounter Care Teams Document Reviewer Relationship Specialty Start Date End Date Mak Baker MD [address] [address] PCP - General Family Medicine 11/28/18 documented as of this encounter
[2025-01-08 17:50] LABS: Basophils Percent Auto 0.5 % (0.2-1.2); Eosinophils Absolute Auto 0.1 K/mm3 (0-0.3); Eosinophils Percent Auto 1.8 % (0-4.4); Hematocrit 43.9 % (42.0-52.0); Hemoglobin 14.2 g/dL (14.0-18.0); Immature Granulocyte Absolute 0.01 K/mm3 (0.00-0.031); Immature Granulocyte Percent A 0.3 % (0-0.5); Lymphocytes Absolute Auto 1.07 K/mm3 (0.9-3.2); Lymphocytes Percent Auto 27.5 % (18.3-44.2); Mean Corpuscular HGB Conc 32.3 g/dl (32-36); Mean Corpuscular Hemoglobin 29.6 pg (26-34); Mean Corpuscular Volume 91.5 fl (80-100); Mean Platelet Volume 11.1 fl (7.4-10.4); Monocytes Absolute Auto 0.6 K/mm3 (0.1-0.6); Monocytes Percent Auto 16.2 % (2.6-8.5); Neutrophils Absolute Auto 2.1 K/mm3 (1.3-6.7); Neutrophils Percent Auto 53.7 % (45.5-73.1); Platelet Count Result 190 k/mm3 (150-375); Red Cell Distribution Width 15.3 % (11.5-14.5); White Blood Count 3.9 K/mm3 (4.5-10.0)
[2025-01-08 17:59] LABS: Alanine Aminotransferase 37 U/L (6-50); Albumin Level 4.4 g/dL (3.5-5.1); Alkaline Phosphatase 77 U/L (38-126); Anion Gap 8 mmol/L (4-12); Aspartate Amino Transferase 41 U/L (17-59); Bilirubin,Total 1.5 mg/dL (0.2-1.3); Blood Urea Nitrogen 23 mg/dL (9-20); Calcium 9.1 mg/dL (8.4-10.2); Carbon Dioxide 26 mmol/L (22-30); Chloride 106 mmol/L (98-107); Estimated CRCL calculation 77 ml/min; Estimated Glomerular Filt Rate > 60; Glucose 103 mg/dL (65-110); Lipase 155 U/L (23-300); Potassium 3.8 mmol/L (3.4-5.0); Sodium 140 mmol/L (137-145)
[2025-01-08 18:00] LABS: Prothrombin Time 13.3 Seconds (11.1-14.7)
[2025-01-08 18:01] LABS: Partial Thromboplastin Time 25.9 Seconds (22.3-36.8)
[2025-01-08 18:11] LABS: Troponin I < 0.012 ng/mL (0.000-0.034)
[2025-01-08 19:15] VITALS: BP 119/80; PULSE 56; RESP 18; O2SAT 98
--- NOTE | 2025-01-08 20:09 | ECG_ITS ---
Test Date: 2025-01-08 20:16:31 Measurements Intervals Fowler Rate: 57 P: 36 TN: 158 QRS: 43 QRSD: 90 T: 52 QT: 404 QTc: 396 Interpretive Statements SINUS BRADYCARDIA EARLY PRECORDIAL R/S TRANSITION BORDERLINE ECG Compared to ECG 01/08/2025 15:34:08 HEART RATE HAS DECREASED Electronically Signed On 01-09-2025 06:14:52 CDT by Williams Reich D.O.
[2025-01-08 20:37] VITALS: BP 125/82; PULSE 58; RESP 18; O2SAT 97
--- NOTE | 2025-01-08 20:38 | ED.GENADULT ---
HPI - General Adult General Chief complaint: Extremity Problem,Nontraumatic Stated complaint: Left shoulder pain-NE history Time Seen by Provider: 01/08/25 17:15 History of Present Illness HPI narrative: Patient is a 64-year-old male who presents ER with left shoulder pain. Ongoing over the last 2 weeks. Intermittent. Worse with movement time. It is in the scapula and will occasionally go to his posterior neck. Reports when he is running or working out he has no discomfort in the shoulder blade and has no chest pain. History of NE in the past. No fevers or chills or sweats. No known injury to his arm. Patient has not taken pain medication for. Symptoms last for couple of minutes. He has not had pain since this morning. Related Data Home Medications ?Medication ?Instructions ?Recorded ?Confirmed ?Last Taken ?Type semaglutide 2 mg/dose (8 mg/3 mL) 2 mg subcut WEEKLY 03/10/24 03/17/24 Unknown History subcutaneous pen injector Allergies Allergy/AdvReac Type Severity Reaction Status Date / Time No Known Allergies Allergy Verified 01/08/25 15:27 Review of Systems Review of Systems: All systems reviewed & are unremarkable except as noted in HPI and below Constitutional: Constitutional: Reports no additional constitutional complaints ENT: Reports system reviewed and no additional complaints, except as documented Cardiovascular: Cardiovascular: Reports no additional cardiovascular complaints Respiratory: Respiratory: Reports no additional respiratory complaints Musculoskeletal: Musculoskeletal: Reports no additional musculoskeletal complaints [facility] Past Medical History Medical History (Updated 01/08/25 @ 20:42 by Bernabe Jones MD) Blood thinned due to long-term anticoagulant use Melena Coronary artery disease ST elevation myocardial infarction (STEMI) (03/10/24) Paroxysmal atrial fibrillation Basal cell carcinoma (BCC) Hypertension Surgical History Surgical History (Updated 03/16/24 @ 15:52 by Tammie Pena PA-C) History of basal cell carcinoma excision History of tonsillectomy History of coronary artery stent placement (03/10/24) Drug-eluting stent to 100% occluded mid left circumflex per Dr. Ritter. History of cardiac catheterization (03/10/24) History of umbilical hernia repair (01/30/24) Robotic laparoscopic repair of 5 cm umbilical hernia with mesh. Family History Family History Father Heart disease Hypertension Afib Age older than 85 years Mother Age older than 85 years Social History Social History (Updated 03/16/24 @ 22:04 by Tammie Pena PA-C) Social History: Surrogate medical decision maker: Nataly Wahl, spouse. Code status: Full code. Smoking packs per day: 1 Smoking cigarettes per day: 20.0 Smoking status: Never smoker Tobacco type: cigarettes Second hand tobacco smoke exposure: No Smoking end date: 12/06/22 Alcohol intake: former Drinks per week: 30 Alcohol use details: Beer. Substance use: never Substance use type: does not use Do You Feel Safe in your Home?: Yes Lack of Transportation: No Lack of Food: Never True Current Housing: I Have Housing Concerned About Future Housing: No Difficulty Paying Gas/Electric Bills: No Difficulty Paying for Meds: No Currently Unemployed: No Education: High School Diploma/GED Difficulty w/ Childcare or Family Care: No Additional living arrangements comments: Lives with in [place]. 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 Spiritual care concerns: No Exam Narrative: GENERAL: Well-appearing, well-nourished, and in no acute distress. HEAD: Normocephalic, atraumatic. ENT: Mucous membranes moist. CHEST: Clear to auscultation. No respiratory distress. HEART: Regular rate and rhythm. Normal peripheral pulses. ABDOMEN: Soft, nontender, nondistended. Back: No reproducible pain of the paraspinal musculature of the back in the thoracic region or over the left scapula. EXTREMITIES: Normal range of motion. No edema. SKIN: Warm, dry, no rash. NEURO: Alert and oriented x3. PSYCH: Normal mood and affect. Course Course Emergency Course: Troponin negative x2. EKG reassuring. Painful to the ischial skeletal and patient should take anti-inflammatories. Follow-up with PCP. Vital Signs Vital signs: Vital Signs Temperature 97.8 F 01/08/25 15:34 Pulse Rate 66 01/08/25 15:34 Respiratory Rate 18 01/08/25 15:34 Blood Pressure 147/100 H 01/08/25 15:34 Pulse Oximetry 99 01/08/25 15:34 Oxygen Delivery Room Air 01/08/25 15:34 Temperature 97.8 F 01/08/25 15:34 Pulse Rate 58 L 01/08/25 20:37 Respiratory Rate 18 01/08/25 20:37 Blood Pressure 125/82 01/08/25 20:37 Pulse Oximetry 97 01/08/25 20:37 Oxygen Delivery Room Air 01/08/25 15:34 Medical Decision Making Vital Signs Vital Signs: Vital Signs Temperature 97.8 F 01/08/25 15:34 Pulse Rate 66 01/08/25 15:34 Respiratory Rate 18 01/08/25 15:34 Blood Pressure 147/100 H 01/08/25 15:34 Pulse Oximetry 99 01/08/25 15:34 Oxygen Delivery Room Air 01/08/25 15:34 Temperature 97.8 F 01/08/25 15:34 Pulse Rate 58 L 01/08/25 20:37 Respiratory Rate 18 01/08/25 20:37 Blood Pressure 125/82 01/08/25 20:37 Pulse Oximetry 97 01/08/25 20:37 Oxygen Delivery Room Air 01/08/25 15:34 Lab Data 01/08/25 17:24 01/08/25 17:24 Labs: Lab Results 01/08/25 01/08/25 Range/Units 17:24 20:13 WBC 3.9 L (4.5-10.0) K/mm3 RBC 4.80 (4.6-6.20) M/mm3 Hgb 14.2 D (14.0-18.0) g/dL Hct 43.9 (42.0-52.0) % MCV 91.5 (80-100) fl MCH 29.6 (26-34) pg MCHC 32.3 (32-36) g/dl RDW 15.3 H (11.5-14.5) % Plt Count 190 (150-375) k/mm3 MPV 11.1 H (7.4-10.4) fl Immature Gran % (Auto) 0.3 (0-0.5) % Neut % (Auto) 53.7 (45.5-73.1) % Lymph % (Auto) 27.5 (18.3-44.2) % Lee % (Auto) 16.2 H (2.6-8.5) % Eos % (Auto) 1.8 (0-4.4) % Baso % (Auto) 0.5 (0.2-1.2) % Lymph # (Auto) 1.07 (0.9-3.2) K/mm3 Lee # (Auto) 0.6 (0.1-0.6) K/mm3 Eos # (Auto) 0.1 (0-0.3) K/mm3 Baso # (Auto) 0.0 (0.0-0.1) K/mm3 Abs Immat Gran (auto) 0.01 (0.00-0.031) K/mm3 Absolute Neuts (auto) 2.1 (1.3-6.7) K/mm3 Absolute Nucleated RBC 0.000 (0.0-0.012) K/mm3 Nucleated RBC % 0.0 (0.0-0.2) % PT 13.3 (11.1-14.7) Seconds INR 1.0 APTT 25.9 (22.3-36.8) Seconds Sodium 140 (137-145) mmol/L Potassium 3.8 (3.4-5.0) mmol/L Chloride 106 (98-107) mmol/L Carbon Dioxide 26 (22-30) mmol/L Anion Gap 8 (4-12) mmol/L BUN 23 H (9-20) mg/dL Creatinine 0.87 (0.7-1.3) mg/dL Estim Creat Clear Calc 77 ml/min Estimated GFR > 60 (59 - ) Glucose 103 (65-110) mg/dL Calcium 9.1 (8.4-10.2) mg/dL Total Bilirubin 1.5 H (0.2-1.3) mg/dL AST 41 (17-59) U/L ALT 37 (6-50) U/L Alkaline Phosphatase 77 (38-126) U/L Troponin I < 0.012 < 0.012 (0.000-0.034) ng/mL Total Protein 7.0 (6.3-8.2) g/dL Albumin 4.4 (3.5-5.1) g/dL Lipase 155 (23-300) U/L Imaging Data Radiologist's impression: ITS Impressions Chest X-Ray 01/08/25 17:23 IMPRESSION: No focal infiltrate or effusion. ECG Data EKG #1: ECG completion date: 01/08/25 ECG completion time: 20:16 EKG Interpretation: bradycardia (57), sinus rhythm, no ectopy, normal QRS, normal QT and NL axis Discharge Plan Discharge Clinical Impression: Acute shoulder pain Patient Disposition: Home, Self-Care Condition: Stable Instructions: Shoulder Pain (ED) Additional Instructions: Please return to the emergency department if you develop severe and persistent chest pain, difficulty breathing, dizziness, leg swelling or if you are coughing up blood as these can be signs of a medical emergency. Please call your doctor for a follow up appointment to determine the need for further testing. Patient Language: Slovenian Prescriptions: No Action semaglutide 2 mg/dose (8 mg/3 mL) Pen Injector 2 mg SUBCUT WEEKLY Rx Instructions: sundays, currently being held aspirin [Children's Aspirin] 81 mg Tablet,Chewable 81 mg PO DAILY@0800 30 Days Qty: 30 11RF losartan 25 mg Tablet 25 mg PO DAILY 30 Days Qty: 30 3RF metoprolol succinate [Toprol XL] 25 mg Tablet Extended Release 24 Hr 25 mg PO QAM 30 Days Qty: 30 3RF rosuvastatin [Crestor] 10 mg Tablet 20 mg PO DAILY 30 Days Qty: 60 11RF amoxicillin-pot clavulanate 875-125 mg tablet 1 tablet PO Q12H Qty: 7 0RF clopidogrel 75 mg Tablet 75 mg PO QAM Qty: 90 3RF pantoprazole 40 mg tablet,delayed release (DR/EC) 40 mg PO BID Qty: 60 1RF Follow-up/Referrals: Alexis,FADI Davila [Primary Care Provider] - 1 Week
[2025-01-08 20:46] LABS: Troponin I < 0.012 ng/mL (0.000-0.034)
[2025-01-08 21:01] VITALS: BP 125/82; PULSE 67; RESP 25; O2SAT 100
== END 2025-01-08 21:01 | disposition home or self-care (01) ==
PROVIDERS: Emergency Provider Emergency Medicine; PCP Physician Assistant
DX: M25.512 Pain in left shoulder (principal); I25.2 Old myocardial infarction; I25.10 Atherosclerotic heart disease of native coronary artery without angina pectoris; I48.0 Paroxysmal atrial fibrillation; I10 Essential (primary) hypertension; F17.210 Nicotine dependence, cigarettes, uncomplicated; Z85.828 Personal history of other malignant neoplasm of skin
CPT/HCPCS: 36415; 71046; 80053; 83690; 84484; 85025; 85610; 85730; 93005; 99284; A9270